=== PATIENT | male | born 1970 | race Native Hawaiian/Other Pacific Islander ===

== ENCOUNTER 2016-06-09 09:46 | Day surgery (SDC) | payer MEDICARE, OTHER, MEDICAID ==
[~2016-06-09] VITALS: Ht 182.9 cm; Wt 129.5 kg
[2016-06-09] VITALS (10 sets, daily range): BP systolic 126–177; BP diastolic 42–88; PULSE 46–68; RESP 15–22; O2SAT 96–100
[~2016-06-09 09:46] MED LIST: ASPI-973 PO; CHOL10008 PO; CINA90TA PO; INSLIS SQ; INSU100V7 SUBQ; PHO667 PO; SEVE800T7 PO
[2016-06-09] MEDS ORDERED: ATOR40TA69 PO (13:02)
--- NOTE | 2016-06-09 13:32 | NUR ---
Admit YURI Admitted to [facility] 6 about 1300. VSS. Denies pain. IVT called for IV start. Procedure and recovery reviewed and verbalizes understanding. See EMR for further info and assessment. Awaiting MD and geophysical laboratory chief.
[2016-06-09] MEDS ORDERED: 0.9% Sodium Chloride 500 ML ONE (14:00)
[2016-06-09 14:14] LABS: INR 0.96 ratio
[2016-06-09] MEDS ORDERED: Alteplase (Cathflo) 1 mg/mL 2 mL Inj IV ONE (14:20)
[2016-06-09] MEDS ORDERED: Heparin 1,000 Unit/mL 10 mL Inj ONE ×2 (14:45→15:59)
[2016-06-09] MEDS ORDERED: Heparin 5,000 Units/500 mL NS Premix IV ONE (14:45)
[2016-06-09] MEDS ORDERED: Heparin 1,000 Units/500 mL NS Premix IV ONE (14:45)
[2016-06-09] MEDS ORDERED: fentaNYL-PF 50 mCg/mL 2 mL Inj ONE (14:49)
[2016-06-09] MEDS ORDERED: Water for Injection 50 ML IV ONE (14:56)
[2016-06-09] MEDS ORDERED: Atropine 1 mg/10 mL (Code) Syringe ONE (15:32)
--- NOTE | 2016-06-09 17:16 | DRSVH ---
PROCEDURE: CV DECLOTTING MECHANICAL (PNL) INDICATIONS: THROMBUS COMPARISON: None. Technique: 1. Conscious sedation for 120 minutes. 2. Antegrade access of the venous outflow of the left upper extremity fistula. 3. Fistulogram of the venous outflow. 4. Administration of TPA via a multi-sidehole catheter. 5. Mechanical thrombolysis with the AngioJet. 6. Angioplasty of a focal high-grade stenosis at the anastomosis of the graft and the central cephali c vein. 7. Retrograde access of the midportion of the venous outflow. 8. Angioplasty of a focal high-grade stenosis within the peripheral portion of the venous outflow beto r the arteriovenous anastomosis. 9. Completion fistulogram. The indications, alternatives, benefits, risks, and complications of the procedure were explained to the patient. Informed written consent was obtained and placed in the chart. The patient was brought to the angiography suite, and conscious sedation was administered intravenously by long term s taff, while continuous cardiorespiratory monitoring was performed. Maximum sterile barrier technique was employed per standard protocol, including hand hygiene, cap, ma sk, sterile gown and gloves, and 2% chlorhexidine. Sterile ultrasound probe cover was also utilized. 1% lidocaine was used to anesthetize the skin over the area of interest. Using a micropuncture kit u nder ultrasound guidance, the venous outflow was accessed in antegrade fashion. focal fistulogram was performed through the micropuncture sheath. With the aid of a Kumpe catheter a Glidewire was advance d into the central portion of the vein. The micropuncture sheath was exchanged for a short 6 [place] s jody. A unifuse catheter was advanced over the wire and 3 mg of TPA was administered through the cat heter. Next, mechanical thrombolysis was performed with the AngioJet device. Fistulogram was performe d. Balloon angioplasty was then performed for a focal high-grade stenosis at the anastomosis of the c entral aspect of the graft and the prairie band vein with a 5 mm x 20 mm high-pressure balloon. Fistulogram was performed. Next, the central portion of the graft was accessed in a retrograde fashion with a micropuncture kit. The micropuncture sheath was exchanged for a short 6 [place] sheath. Balloon angioplasty was performe d for a focal high-grade stenosis within the peripheral portion of the vein just central to the arter iovenous anastomosis. This was performed with a 5 mm x 20 mm high-pressure balloon. Completion fistul ogram was performed. FINDINGS: Initial ultrasound and fistulogram demonstrates a completely occluded left upper extremity graft. Completion fistulogram demonstrates a widely patent graft with prompt flow of contrast centra lly. There is trace residual clot or stenosis within the peripheral portion of the graft just central to the arteriovenous anastomosis. IMPRESSION: 1. Status post mechanical and pharmacologic thrombolysis of a completely occluded left upper extremit y arteriovenous graft. 2. Status post angioplasty of a focal high-grade stenosis at the central graft/vein anastomosis. 3. Status post angioplasty of a focal high-grade stenosis at the peripheral portion of the graft just central to the artery/graft anastomosis. Dictated by: Roslyn Perales M.D. on 06/09/2016 at 17:14 Approved by: Roslyn Perales M.D. on 06/09/2016 at 17:14
--- NOTE | 2016-06-09 19:53 | NUR ---
Received Received from analyst microbiology lab about 1500. VSS. Denies pain. Taking po well. Pursestrings intact with good pulse and bruit. Bedrest until 1900. Pursestrings removed one at a time starting at 1910 and holding for 10minutes per pursestring. Bandaids applied. Discharge instructions given, see sheets. Instructed to not use arm as much as possible. Discharged ambulatory with all belongings at 1950 in no distress.
== END 2016-06-09 23:59 | disposition home or self-care (01) ==
LOC: SOUO 09:46
PROVIDERS: ATTEND Radiology Vascular & Interventional Radiology
DX: T82.898A Other specified complication of vascular prosthetic devices, implants and grafts, initial encounter (principal); T82.858A Stenosis of other vascular prosthetic devices, implants and grafts, initial encounter; Y83.1 Surgical operation with implant of artificial internal device as the cause of abnormal reaction of the patient, or of later complication, without mention of misadventure at the time of the procedure; N18.6 End stage renal disease; Z99.2 Dependence on renal dialysis; Z79.4 Long term (current) use of insulin; Z79.82 Long term (current) use of aspirin; I12.0 Hypertensive chronic kidney disease with stage 5 chronic kidney disease or end stage renal disease; E11.22 Type 2 diabetes mellitus with diabetic chronic kidney disease; I73.9 Peripheral vascular disease, unspecified; D63.1 Anemia in chronic kidney disease; Z87.891 Personal history of nicotine dependence
CPT/HCPCS: 36905; 84132; 85049; 85610; 85730; 99152; 99153; C1725; C1751; C1769; C1894; J1644; J2250; J3010; Q9967

== ENCOUNTER 2016-06-14 10:48 | Inpatient (IN) | payer MEDICARE, OTHER, MEDICAID ==
[~2016-06-14] VITALS: Ht 182.9 cm; Wt 122.6 kg
[2016-06-14] MEDS ORDERED: Ondansetron 8 mg ODT Tablet PO ONE (11:15)
[2016-06-14 11:17] VITALS: BP 99/53; PULSE 79; RESP 18; O2SAT 99
[2016-06-14 12:25] LABS: BASOPHILS % (AUTO) 0.2 % (0-3); Mean Corpuscular Hemoglobin 31.8 pg (27.0-35.0)
[2016-06-14 12:27] LABS: EOSINOPHILS % (AUTO) 2.4 % (0-5); MONOCYTES % (AUTO) 2.9 % (4-12); Mean Corpuscular Volume 97.2 fL (81-100); NEUTROPHILS % (AUTO) 89.8 % (40-74); Platelet Count 123 bil/L (150-400)
[2016-06-14] MEDS ORDERED: Promethazine 25 mg/mL Inj IM ONE (13:05)
--- NOTE | 2016-06-14 13:24 | ED.REPORT ---
HPI-Fever Date of Service Jun 14, 2016 ED Provider: Chun Magallon PA-C Waqas is a 46 yo dialysis patient with a chief complaint of fever. Patient states that he was advised to present to the emergency department 2 days ago when he was noted to have a fever at his dialysis treatment. He did not rather treated himself with NyQuil which seemed to resolve his symptoms. He again noticed nausea, vomiting and fever/chills yesterday, and again treated himself with NyQuil. He is afebrile when he presented to dialysis this morning but then spiked a fever shortly after starting treatment. Treatment was stopped and he was directed to present to the emergency department. Patient also complains of vomiting 3 yesterday and today, diarrhea 1 today and midline intermittent, nonradiating lumbosacral pain. He was diagnosed 5 days ago with blood clot at his fistula. He has a small wound on the plantar aspect of his right great toe, which was seen at wound care yesterday. Patient reports wound care did not feel that it was infected at that time. Patient admits a nine- year history of dialysis, DM 2 and states that he does not produce urine. Denies upper respiratory symptoms, chest pain, palpitations, dyspnea, cough, abdominal pain. Nursing Notes Stated Complaint: FEVER Chief Complaint: FLU/Cold Symptoms Nursing Notes Reviewed: Yes Allergies: Coded Allergies: No Known Allergies (Verified , 06/14/16) Scheduled Aspirin (Aspirin) 81 Mg Tablet 81 MG PO DAILY Calcium Acetate (Calcium Acetate) 667 Mg Capsule 2 EACH PO TIDWM Cholecalciferol (Vitamin D3) (Vitamin D3) 1,000 Unit Tab.chew 1,000 UNIT PO DAILY Insulin Glargine (Lantus U100 Insulin Vial) 100 Unit/Ml Vial 30 UNIT SUBQ QPM Insulin Human Lispro (HumaLOG U100 Insulin Vial) 100 Unit/Ml Unit 10 UNITS SQ ACHS Sevelamer Carbonate (Renvela) 800 Mg Tablet 800 MG PO TID Scheduled PRN Acetaminophen (Acetaminophen) 325 Mg Capsule 325 MG PO Q4H PRN PRN For Pain General Time Seen by MD: 11:08 Chief Complaint Fever currently Past Medical History Smoking History Former Smoker Review of Systems General: Admits fever, chills, malaise. HEENT: Denies congestion, headache, sore throat. Respiratory: Denies dyspnea, cough, shortness of breath, wheezing. Cardiovascular: Denies chest pain, palpitations. Gastrointestinal: Admits vomiting, diarrhea, denies abdominal pain. Genitourinary: Denies urine production Otherwise as noted in HPI. Physical Exam Initial Vital Signs Vital Signs (First) Date Time Temp Pulse Resp B/P Pulse Ox O2 Delivery O2 Flow Rate FiO2 06/14/16 11:17 40.7 79 18 99/53 99 Room Air Initial VS: Reviewed, Vital signs abnormal (febrile) Interpretation & Diagnostics Interpretation & Diagnostics: Flu screen negative for a and B Lab Results Interpretation Result Diagram: 06/14/16 1215 06/14/16 1215 Test 06/14/16 12:15 White Blood Count 8.7th/mm3 (3.8-10.1) Red Blood Count 3.59mil/mm3 (4.40-5.80) Hemoglobin 11.4g/dL (13.8-17.2) Hematocrit 34.9% (41.0-50.0) Mean Corpuscular Volume 97.2fL (81-100) Mean Corpuscular Hemoglobin 31.8pg (27.0-35.0) Mean Corpuscular Hemoglobin Concent 32.7% (32.0-37.0) Red Cell Distribution Width 15.6% (12.3-15.4) Platelet Count 123bil/L (150-400) Neutrophils (%) (Auto) 89.8% (40-74) Lymphocytes (%) (Auto) 3.5% (14-46) Monocytes (%) (Auto) 2.9% (4-12) Eosinophils (%) (Auto) 2.4% (0-5) Basophils (%) (Auto) 0.2% (0-3) Sodium Level 131mEq/L (134-144) Potassium Level 4.7mEq/L (3.5-5.2) Chloride Level 85mEq/L (97-108) Carbon Dioxide Level 21mmol/L (18-29) Blood Urea Nitrogen 51mg/dL (6-24) Creatinine 9.47mg/dL (0.76-1.27) Estimat Glomerular Filtration Rate 6mL/min (>59) Glucose Level 163mg/dL (60-99) Calcium Level 9.3mg/dL (8.5-10.1) Phosphorus Level 3.9mg/dL (2.5-4.9) Magnesium Level 1.8mg/dL (1.6-2.6) Total Bilirubin 1.3mg/dL (0.0-1.2) Aspartate Amino Transf (AST/SGOT) 17U/L (0-50) Alanine Aminotransferase (ALT/SGPT) 13U/L (0-44) Alkaline Phosphatase 94U/L (25-150) Total Protein 9.3g/dL (6.4-8.4) Albumin 3.7g/dL (3.4-5.0) Procalcitonin 70.45ng/mL (See Comment) CT Chest Interpretation PROCEDURE: X-RAY CHEST, TWO VIEWS ([id number]) INDICATIONS: fever TECHNIQUE: 2 views of the chest were acquired. COMPARISON: [facility], CR, XR CHEST 1VW (PORTABLE), 01/03/2016, 20:51. IMPRESSION: Coarsened interstitial prominence particularly near the bases. This could be call center representative of edema or developing airspace disease such as pneumonia. Interpretation / Wet Read by: Interpret - Radiologist, Interp - P Re-Eval/Medical Decision Med Decision/Clinical Course Discussed this case with Dr. Lang Consultation : Referral / Consult Name: Lesa Mcadams MD Consulted With: Hospitalist Call Returned at: 15:29 Front Desk Worker: Accepts admit Note: Dr. Mcadams asked that we order an DEISI respiratory viral, stool cultures and place the patient on Levaquin Discharge & Departure Impression: Primary Impression: Fever Fever type: unspecified Qualified Code: R50.9 - Fever, unspecified Disposition: ADMITTED TO HOSPITAL Referrals: DIANE RICHARDS PA-C (PCP) EDSupervising Provider for APC: Camron Zapata Seth PA-C Jun 14, 2016 13:24
--- NOTE | 2016-06-14 14:12 | DRSVH ---
PROCEDURE: X-RAY CHEST, TWO VIEWS ([id number]) INDICATIONS: fever TECHNIQUE: 2 views of the chest were acquired. COMPARISON: [facility], CR, XR CHEST 1VW (PORTABLE), 01/03/2016, 20:51. FINDINGS: Surgical changes and devices: None. Lungs and pleura: There is appearance of coarse and interstitial prominence particularly toward the b ases. Mediastinum: Mediastinal contours are normal. Heart size is normal. Bones and chest wall: No suspicious bony abnormalities. Soft tissues appear unremarkable. IMPRESSION: Coarsened interstitial prominence particularly near the bases. This could be representati ve of edema or developing airspace disease such as pneumonia. Dictated by: Mary Garcia M.D. on 06/14/2016 at 14:10 Approved by: Mary Garcia M.D. on 06/14/2016 at 14:10
[2016-06-14] MEDS ORDERED: Promethazine Inj 25 MG in Dextrose 5%-Pha MIX 50 ML IV ONE (14:50)
[2016-06-14] MEDS ORDERED: Ondansetron 2 mg/mL 2 mL Inj IVPUSH PRN ×2 (15:30→20:20)
[2016-06-14] MEDS ORDERED: ACET325C PO (15:30)
[2016-06-14] MEDS ORDERED: Alum-Mag Hydrox-Simeth 30 mL Suspension PO PRN (15:30)
[2016-06-14] MEDS ORDERED: levoFLOXacin Inj 750 MG in IV Premix 1 EACH IV ONE (15:30)
[2016-06-14] MEDS ORDERED: CALC667C9 PO (15:30)
[2016-06-14] MEDS: Vancomycin Dose per Pharmacist XX SCH (16:10)
[2016-06-14] MEDS ORDERED: 0.9% Sodium Chloride 1,000 ML IV SCH (16:16)
[2016-06-14] MEDS ORDERED: Polyethylene Glycol (PEG) 17 Gm Powder PO PRN (16:20)
[2016-06-14] MEDS ORDERED: Glucose 40% Oral Gel 15 Gm Tube PO PRN (16:20)
--- NOTE | 2016-06-14 16:30 | PCM.HPMED ---
Subjective Date of Service Jun 14, 2016 Primary Provider: Admitting Physician: Primary Care Physician: Jeni Jenkins Pa-C Attending Physician: Chief Complaint: fever HISTORY was OBTAINED FROM PATIENT / [employer] [facility] History of present illness 46-year-old male with cough and fever since Sunday, told by hemodialysis nurse to come to the ER then, went home and took NyQuil for the last 2 days, presents today in the ER from hemodialysis with temperature 104, low blood pressure, nausea vomiting diarrhea and malaise x 3 days no blood in emesis/or in stool, poor PO intake, no change in diet. no epigastric pain. no GERD. Chest x-ray consistent with possible pneumonia, left shift (he never has leukocytosis) right first toe with ulcer, MRSA history. no cough/ works w/ children no SOB. per his wound care clinic his foot toe ulcer is healing. no recent abx. In ER, Levaquin/vancomycin/100 mL per hour/lactate 3. Pending blood culture aspirate viral stool culture right foot x-ray Review of Systems - none of the following - F/C/sick contact / wt change/ DAMON / lightheaded / dizziness / sob / cough / cp / acid reflux / / bleeding/bruising / leg swelling / change in voiding / yeast infections / rash FAMILY HX ESRD SOCIAL HX former smoker MEDICATIONS Aspirin (Aspirin) 81 Mg Tablet 81 MG PO DAILY Calcium Acetate (Phoslo) 667 Mg Tablet 667 MG PO TIDWM Cholecalciferol (Vitamin D3) (Vitamin D3) 1,000 Unit Tab.chew 1,000 UNIT PO DAILY Cinacalcet HCl (Sensipar) 90 Mg Tablet 90 MG PO DAILY Insulin Glargine (Lantus U100 Insulin Vial) 100 Unit/Ml Vial 30 UNIT SUBQ QPM Insulin Human Lispro (HumaLOG U100 Insulin Vial) 100 Unit/Ml Unit 10 UNITS SQ ACHS Sevelamer Carbonate (Renvela) 800 Mg Tablet 800 MG PO TID PMHX DM MRSA foot ulcer no pneumonia no cardiac disease hx ESRD HD cathremoved distantly AVF Allergies Coded Allergies: No Known Allergies (Verified , 06/14/16) PMH Social History Hx Alcohol Use: No Hx Substance Use: No Hx Tobacco Use: Yes Smoking Status: Former Smoker Exam Vital Signs Vital Sign - Last Date Time Temp Pulse Resp B/P Pulse Ox O2 Delivery O2 Flow Rate FiO2 06/14/16 11:17 40.7 79 18 99/53 99 Room Air Lab and Diagnostics Labs Exam on admission SBP 80s NAD A and O x 3 mood affect WNL fatigued NC/AT no icterus no injected eyes EOMI PERRL /no pharyngeal lesions/ no oral lesions / hearing intact Supple neck CTAB equal chest rise / no accessory muscle use / speaks in full sentences / no rrw RRR S1 S2 / no mrg / 2+ radial pulses Soft nt nd + BS no hepatosplenomegaly trace jurado edema no cyanosis no ecchymosis of lower extremities No rash / no jaundice THAKUR 1st right toe - unimpressive healing pinpoint toe ulcer CXR : Coarsened interstitial prominence particularly near the bases. This could be applications sales representative of edema or developing airspace disease such as pneumonia. lactic acid elevated procalcitonin elevated left shift stool PCR negative Result Diagram: 06/14/16 1215 06/14/16 1215 Assessment & Plan Active issues and reason for admission sepsis from gastroenteritis and HCAP --treating w/ joseph cohensyn levaquin IVF duonebs --hx mrsa --zofran --pending bl culture / lipase mild thrombocytopenia Chronic issues known prior to admission, present on admission ESRD - Call cold mill inspector for routine HD DM --resume home meds / SSI Diet clear DVT prophylaxis scd ambulate Code full Disposition inpt Assessment and plan were discussed with patient Lesa Mcadams MD Jun 14, 2016 16:30 Social History Hx Alcohol Use: No Hx Substance Use: No Hx Tobacco Use: Yes Smoking Status: Former Smoker Exam Vital Signs Vital Sign - Last Date Time Temp Pulse Resp B/P Pulse Ox O2 Delivery O2 Flow Rate FiO2 06/14/16 11:17 40.7 79 18 99/53 99 Room Air Lab and Diagnostics Result Diagram: 06/14/16 1215 06/14/16 1215 Lesa Mcadams MD Jun 14, 2016 16:30
[2016-06-14 16:49] VITALS: PULSE 72; RESP 16; O2SAT 94
[2016-06-14 17:06] LABS: Magnesium 1.8 mg/dL (1.6-2.6); Phosphorus 3.9 mg/dL (2.5-4.9)
[2016-06-14 17:16] LABS: TROPONIN T 0.166 ug/L (0.0-0.011)
[2016-06-14] MEDS: 0.9% Sodium Chloride 1,000 ML IV SCH ×2 (17:20→21:52)
--- NOTE | 2016-06-14 17:25 | DRSVH ---
PROCEDURE: X-RAY RIGHT FOOT COMPLETE, MINIMUM THREE VIEWS ([id number]) INDICATIONS: sepsis, right 1st toe ulcer, evaluate osteomyelitis TECHNIQUE: 3 views of the foot were acquired. COMPARISON: [facility], , FOOT COMP MIN 3VW (RT), 10/04/2010, 15:57. FINDINGS: Bones: Postsurgical amputation changes are present at the distal fifth metatarsal. Soft tissues: No tibiotalar joint effusion. Achilles tendon appears normal. Soft tissue edema is p resent along the distal phalanx of the first digit. IMPRESSION: 1. Soft tissue first digit edema without visualized osteomyelitis. However, plain film findings can b e delayed compared to bone scan or MRI. Dictated by: Mary Garcia M.D. on 06/14/2016 at 17:24 Approved by: Mary Garcia M.D. on 06/14/2016 at 17:24
[2016-06-14] MEDS: Insulin LISPRO 300 Unit/3 mL Inj SUBQ SCH ×2 (17:30→20:24)
[2016-06-14] MEDS ORDERED: Vancomycin Serum Trough XX ONE (17:50)
--- NOTE | 2016-06-14 18:30 | NUR ---
Admit Pt admitted from ED, report received from Brandy Jay RN. Pt arrived via stretcher, was able to scoot to bed on own. Pt arrived with dialysis fistula accessed, service now developer is currently de-accessing fistula. Pt A/O kristie Collins MD notified of admit [place] [facility].
[2016-06-14 20:14] VITALS: BP 87/54; PULSE 85; RESP 20; O2SAT 94
--- NOTE | 2016-06-14 20:55 | PCM.CONPHA ---
Assessment/Plan Assessment/Plan Pharmacy Kinetic Dosing Vancomycin Indication: SOFT TISSUE RIGHT FOOT ULCER Vanc goal trough: 10-15 mcg/mL Pt wt: 129.6 kg Other ABX: LEVAQUIN, ZOSYN Cultures: Blood PENDING SCr: 9.47mg/Dl CRCL 10.58 ML/MIN Assessment/Plan: - Loading dose of Vancomycin 2000 mg given in ED for (15mg/kg dosing) -Due to patients decreased renal fxn will order a trough for 12 hours after loading dose @0800 06/15/16. Pharmacy will continue to monitor and dose based on drug levels and protocol. Pharmacy appreciates consult and will continue to monitor. Viridiana Paige PharmD Jun 14, 2016 20:55
[2016-06-14] MEDS: Albuterol-Ipratropium 3 mL Inhalation Solution NEB SCH (21:00)
[2016-06-14 22:57] VITALS: BP 93/55; PULSE 74
[2016-06-14] MEDS: Piperacillin-Tazo 3.375 Gm Inj 3.375 GM in Dextrose 5% Minibag Plus 50 ML IV SCH (23:08)
[2016-06-15] VITALS (17 sets, daily range): BP systolic 90–146; BP diastolic 39–76; PULSE 53–76; RESP 17–25; O2SAT 85–100
[2016-06-15 03:04] LABS: Mean Corpuscular Hemoglobin 31.6 pg (27.0-35.0)
[2016-06-15 03:14] LABS: Phosphorus 5.8 mg/dL (2.5-4.9)
[2016-06-15] MEDS: Albuterol-Ipratropium 3 mL Inhalation Solution NEB SCH ×4 (06:00→21:00)
[2016-06-15 07:55] LABS: BASOPHILS % (AUTO) 0.4 % (0-3); EOSINOPHILS % (AUTO) 0.3 % (0-5); MONOCYTES % (AUTO) 14.7 % (4-12); Mean Corpuscular Volume 97.6 fL (81-100); NEUTROPHILS % (AUTO) 77.2 % (40-74); Platelet Count 102 bil/L (150-400)
[2016-06-15] MEDS: Insulin LISPRO 300 Unit/3 mL Inj SUBQ SCH ×4 (08:00→22:00)
[2016-06-15] MEDS: Vancomycin Dose per Pharmacist XX SCH (08:01)
[2016-06-15] MEDS: 0.9% Sodium Chloride 1,000 ML IV SCH (08:09)
[2016-06-15] MEDS: Piperacillin-Tazo 3.375 Gm Inj 3.375 GM in Dextrose 5% Minibag Plus 50 ML IV SCH (08:10)
--- NOTE | 2016-06-15 10:00 | NUR ---
Heartrate Multiple pauses and bradycardia seen and reported by medical records technician. Provider notified. New orders recheck mag, obtain EKGS. EKGs labeled in chart. Mag 2.0 at this time and tele monitoring continues.
--- NOTE | 2016-06-15 10:10 | CONS ---
[address] [address] CONSULTATION REPORT PATIENT: SUZANNE ROJAS : 1970 MR#: [id number] ADMIT: 06/14/2016 JOB ID: [id number] DATE OF SERVICE: RENAL CONSULTATION: IDENTIFYING DATA: The patient is a very pleasant 46-year-old, who was admitted to [facility] for a clotted AV fistula, possible acute viral illness and possible bacteremia. He has a history of end-stage renal disease, and renal consultation is being sought for further evaluation of his renal dysfunction. HISTORY: He has an approximately 9-year history of end-stage renal disease, and he normally dialyzes on Sunday, Sunday and Sunday for 4-1/2 hours over at the [place] unit. He is being followed by an outside technical services consultant. He had a failed vascular access and several months ago, Dr. Junior placed a left upper arm AV graft. This had been functioning fairly well until this last week when his access clotted. He was seen in Interventional Radiology and had a declotting procedure. He was able to undergo dialysis following this without any problems. Yesterday, he was at his routine dialysis treatment and got a 1 hour of dialysis and the access clotted off. He was sent to [facility] and subsequently admitted. The etiology of his renal failure is due to longstanding hypertension and possible contribution of diabetic renal disease. He has a history of both hypertension and insulin-requiring diabetes mellitus. His diabetes has been further complicated by severe peripheral vascular disease with several ulcerations on both feet. He has been [facility] by [facility]. However, he states that there appears to be a new lesion on his left foot. In addition to this, he also has been complaining of some upper respiratory tract symptoms including nasal congestion and cough. He denies any wheezing or shortness of breath. However, he has had some fever and chills. He denies any rashes or arthralgias nor has he had any chest pain, nausea, vomiting, constipation, or diarrhea. His preliminary blood cultures are positive for gram-positive cocci, and he has been given vancomycin. PAST MEDICAL HISTORY: Significant for insulin-requiring diabetes mellitus, hypertension with hypertensive heart disease and hypertensive nephrosclerosis, and end-stage renal disease. He also has a history of peripheral vascular disease and secondary hyperparathyroidism due to end-stage renal disease. He has also had a history of MRSA in the past. PAST SURGICAL HISTORY: Remarkable for several hemodialysis catheters placed in the past, arteriovenous fistula which has failed and his recent arteriovenous graft as detailed above. ALLERGIES: He is not allergic to any food or any medication. SOCIAL HISTORY: He has a prior history of cigarette use but denies any current use of alcohol, tobacco, or illicit drugs. MEDICATIONS: At time of my evaluation include aspirin, PhosLo, vitamin D3, Sensipar, insulin. REVIEW OF SYSTEMS: As detailed above. Otherwise is noncontributory. PHYSICAL EXAMINATION: Revealed an obese 46-year-old, who was alert and oriented x3, in no distress at time of my evaluation. His blood pressure is 104/61 with pulse rate of 71. HEENT examination is remarkable for pale sclerae. Neck is supple without adenopathy, thyromegaly, or jugular venous distention. Lungs were clear to auscultation, though somewhat diminished. Heart was regular and rhythmical with a soft systolic murmur. Abdomen is distended without any tenderness, rebound, guarding, masses, or hepatosplenomegaly. Examination of his extremities did not show any edema. He does have chronic skin changes in his bilateral distal lower extremities consistent with chronic peripheral vascular disease. There are several ulcerated lesions noted on his right foot and on his left foot. Examination of his left upper arm does not show any calor or erythema over his AV graft. LABORATORY EXAMINATION: Today, his white count is 10.4, hemoglobin 9.4, hematocrit 28.7. Red cell indices are within normal limits. Platelet count is low at 102,000. He has 77 neutrophils and 15% lymphocytes. His sodium is 141, potassium 4.8, chloride 90, CO2 of 20, BUN and creatinine were 63 and 11.2. His glucose is 114. Earlier this morning, his vancomycin trough was 24.4. IMPRESSION: 1. Clotted arteriovenous graft. 2. End-stage renal disease -- dialysis dependent. 3. Hypertension with hypertensive heart disease and hypertensive nephrosclerosis without congestive heart failure. 4. Diabetic nephropathy. 5. Staphylococcal sepsis. 6. Severe peripheral vascular disease. RECOMMENDATION: 1. I would like to get a straight cath urinalysis, along with a culture and sensitivity. 2. I will contact Radiology and Dr. Junior about trying to get his left upper arm graft declotted. 3. We need to continue to follow his vancomycin level and re-dose once his level is less than 20. 4. I would agree with cautious IV hydration. Once again, I would like to thank you for allowing me to participate in the care of this most pleasant but unfortunate patient. I will be following him closely with you.
[2016-06-15] MEDS ORDERED: Vancomycin Serum Trough XX ONE (10:30)
--- NOTE | 2016-06-15 11:30 | NUR ---
Ultrasound Pt LLE was in pain, warm, and swollen. Physician saw pt. Ultrasound ordered for BLE and acetaminophen administered for pain. Negative for DVT and pain re-evaluated, pain lowered.
[2016-06-15] MEDS ORDERED: 0.9% Sodium Chloride 1,000 ML ONE (12:04)
[2016-06-15] MEDS ORDERED: Heparin 5,000 Units/500 mL NS Premix IV ONE (12:05)
[2016-06-15] MEDS ORDERED: Alteplase (Cathflo) 1 mg/mL 2 mL Inj INTRACATH ONE (12:50)
--- NOTE | 2016-06-15 13:17 | DRSVH ---
PROCEDURE: US VENOUS LEG DUPLEX BILATERAL INDICATIONS: PAIN AND SWELLING RT>LFT TECHNIQUE: Real-time imaging, as well as color and pulse Doppler interrogation, were performed of the deep veins of both legs from the inguinal ligament to the popliteal fossa. COMPARISON: None. FINDINGS: The deep veins are normally compressible, and free of intraluminal thrombus. Color and pu lse Doppler demonstrate normal phasic intravascular flow. There is normal augmentation response to d istal compression maneuver. There are bilateral groin lymph nodes identified the largest measuring 15 mm on the left. IMPRESSION: No evidence of deep venous thrombosis. Dictated by: Mary Garcia M.D. on 06/15/2016 at 13:15 Approved by: Mary Garcia M.D. on 06/15/2016 at 13:15
--- NOTE | 2016-06-15 13:48 | NUR ---
CathLab Nephrology consulted and assessed, new order for fistulagram. Consent obtained and in chart. NPO after clears for breakfast for procedure today. Pt escorted off floor via odd job laborer personnel via bed.
[2016-06-15] MEDS ORDERED: fentaNYL-PF 50 mCg/mL 2 mL Inj ONE ×2 (13:51→14:36)
[2016-06-15] MEDS ORDERED: Heparin 1,000 Unit/mL 10 mL Inj ONE (13:54)
[2016-06-15] MEDS ORDERED: Water for Injection 50 ML IV ONE (14:01)
[2016-06-15] MEDS ORDERED: Heparin 1,000 Units/500 mL NS Premix IV ONE (14:04)
--- NOTE | 2016-06-15 14:50 | PCM.PHAPRO ---
Progress fever HISTORY was OBTAINED FROM PATIENT / [facility] NOTES History of present illness 46-year-old male with cough and fever since Sunday, told by hemodialysis nurse to come to the ER then, went home and took NyQuil for the last 2 days, presents today in the ER from hemodialysis with temperature 104, low blood pressure, nausea vomiting diarrhea and malaise x 3 days no blood in emesis/or in stool, poor PO intake, no change in diet. no epigastric pain. no GERD. Chest x-ray consistent with possible pneumonia, left shift (he never has leukocytosis) right first toe with ulcer, MRSA history. no cough/ works w/ children no SOB. per his wound care clinic his foot toe ulcer is healing. no recent abx. In ER, Levaquin/vancomycin/100 mL per hour/lactate 3. Pending blood culture aspirate viral stool culture right foot x-ray Review of Systems - none of the following - F/C/sick contact / wt change/ DAMON / lightheaded / dizziness / sob / cough / cp / acid reflux / / bleeding/bruising / leg swelling / change in voiding / yeast infections / rash FAMILY HX ESRD SOCIAL HX former smoker MEDICATIONS Aspirin (Aspirin) 81 Mg Tablet 81 MG PO DAILY Calcium Acetate (Phoslo) 667 Mg Tablet 667 MG PO TIDWM Cholecalciferol (Vitamin D3) (Vitamin D3) 1,000 Unit Tab.chew 1,000 UNIT PO DAILY Cinacalcet HCl (Sensipar) 90 Mg Tablet 90 MG PO DAILY Insulin Glargine (Lantus U100 Insulin Vial) 100 Unit/Ml Vial 30 UNIT SUBQ QPM Insulin Human Lispro (HumaLOG U100 Insulin Vial) 100 Unit/Ml Unit 10 UNITS SQ ACHS Sevelamer Carbonate (Renvela) 800 Mg Tablet 800 MG PO TID PMHX DM MRSA foot ulcer no pneumonia no cardiac disease hx ESRD HD cathremoved distantly AVF VANCOMYCIN DOSING PER PHARMACY Indication: SOFT TISSUE RIGHT FOOT ULCER Vanc goal trough: 15-20 mcg/mL Pt wt: 124.8kg Other ABX: NONE Cultures: POSITIVE CULTURES: GRAM (+) COCCI Labs: WBC 11.22 SCr: 11.22 mg/dL Trough @1030 was 19.7 (14 hours after LD was given) Note: - Unclear picture in regards to HD and if pt will continue. Assessment/Plan: - Loading dose of Vancomycin 2000 mg given in ED for (15mg/kg dosing) - Will give one time dose of vancomycin 1750 mg IV @2000 tonight - Will order a trough for 06/16/16 @0800 to see how pt is clearing vancomycin - Pharmacy will continue to monitor and dose based on drug levels and protocol. Caron Renee PharmD Jun 15, 2016 14:50
--- NOTE | 2016-06-15 15:15 | NUR ---
POST PROCEDURE NOTE RETURNED FROM BORDER MEASURER. SEE FLOW SHEET
--- NOTE | 2016-06-15 15:18 | CONS ---
[address] [address] CONSULTATION REPORT PATIENT: SUZANNE ROJAS : 1970 MR#: [id number] ADMIT: 06/14/2016 JOB ID: [id number] DATE OF SERVICE: 06/15/2016 INFECTIOUS DISEASE FOLLOW UP NOTE: I thank Dr. Watson Corea for this timely consult. REASON FOR CONSULTATION: High-grade Staph aureus bacteremia in an end-stage renal disease patient. INTERVAL HISTORY: The patient is an unfortunate 46-year-old gentleman with longstanding hypertension, diabetes and peripheral vascular disease. He has been on dialysis for about a decade. He was initially dialyzed with fistulas but unfortunately all his fistula sites have clotted. More recently he has been using grafts and in February of 2016, Dr. Kareem Junior placed a graft in his left upper arm. This procedure was complicated by postop hypertension from which he recovered. He subsequently has had issues with the graft clotting but it has been functioning recently. His current problems began on June 12, three days ago, when he developed extremely high fevers in association with nausea, vomiting, diarrhea, loss of appetite and malaise. He denied focal tenderness or problems with the graft though there have been subsequent clotting issues with it. No associated sore throat, significant cough, chest pain, abdominal pain or soft tissue issues. It is worth noting that the patient does have a chronic ulceration underneath his right great toe for which he is followed by a physician in [place] and he has previously had some issues with his left foot but these problems seem to have been quiescent recently. PAST MEDICAL HISTORY: 1. Hypertension. 2. Diabetes. 3. End-stage renal disease times dialysis for 10 years. 4. Peripheral arterial disease. 5. History of MRSA though not contained within our computer but perhaps diagnosed and proven in [place]. SOCIAL HISTORY: The patient is [place] and moved here from [facility] in 2001. He is an ex cigarette smoker and used to work in a warehouse. He now lives on [facility]. FAMILY HISTORY: Positive for diabetes as well as end-stage renal disease. There is no family history of tuberculosis though he is Syrian. REVIEW OF SYSTEMS: Today, the patient has no significant headache. No visual change. No sore throat, trouble swallowing, cough, shortness of breath or chest pain. Nausea and vomiting present on admission resolved, though he does now have some loose stools and diarrhea. The patient is aneuric and, therefore, does not have dysuria, urgency or frequency. He thinks his feet are about at baseline. The patient denies any new or focal neurologic complaints. He is not having any problems with his left upper extremity graft other than it has clotted again and is in need of declotting, but it has not been tender, warm or draining anything. PHYSICAL EXAMINATION: Reveals an afebrile gentleman, temperature 37.4, pulse 71, respiratory rate 19, blood pressure 112/50. He is saturating well on 2 L. He is awake and alert. Anticipating a trip to [facility]iology to try and reopen his left upper extremity graft. His head is without trauma. His eyes are without scleral icterus or conjunctivitis. His nose is normal. His oral cavity is without pharyngitis or thrush. His neck is without obvious abnormality. His lungs are relatively clear. Cardiac tones regular rate and rhythm without murmur. Abdomen basically soft and nontender without organomegaly. No suprapubic fullness is noted. The left upper extremity graft site appears entirely benign. The suture lines are intact. There is no erythema. No drainage and no thrill is noted. The old fistula site on the opposite limb is without a thrill and without evidence of infection either. The patient does not have a Abraham catheter for obvious reasons. He is without evidence of synovitis or joint inflammation. His feet were carefully examined. Underneath the right great toe, there is about a 3 mm in diameter opening which is quite shallow and without evidence of inflammation. This is the ulcer he has been seeking treatment for in the [place] [facility]. On the left foot there is erythema around the lateral foot especially around the left 5th toe. This is not painful but it is a bit erythematous and a bit warm and may be the source of his infection. The patient is neurologically intact. LABORATORIES: Include white count 10,400, hematocrit 28, platelets 102 and declining. Creatinine 11. LFTs are normal. Albumin 3.2. Respiratory viral PCR negative. Stool viral cultures negative. Blood cultures now growing 4 of 4 for Staph aureus with susceptibilities due tomorrow. IMAGING: Includes a chest x-ray, which has some subtle changes at the bases. X-ray of the foot shows no evidence of osteo and ultrasound of the lower extremities no clot. IMPRESSION: This is an unfortunate gentleman with end-stage renal disease for a decade who is now only 46 years old. He is having more and more troubles with dialysis access and has been forced to move from fistulas to graft in his left upper extremity which has now clotted a couple times. It would appear that his current infectious process is not related to the graft as it appears and feels entirely benign. More likely, I think his high-grade Staph bacteremia anna from one of his ulcerated areas on either of his feet, and in particular, his left lateral forefoot has some erythema to it suggesting perhaps that is the nidus of his bacteremia. It is also possible that he could have a post viral Staph pneumonia but I see little evidence of that by auscultation or review of his chest radiograph and the patient does not have much going on in terms of cough to suggest that as an issue. The management of Staph aureus bacteremia in dialysis patients includes serial blood cultures as well as echocardiography and almost always ends with a transesophageal echo, if feasible. RECOMMENDATIONS: 1. Would discontinue the levo and Zosyn he has been receiving as we have a proven cause of this infection. 2. I would continue with vanco with keeping blood levels of 15-20, as per our pharmacy colleagues. 3. If in fact this is a MSSA, will switch to Ancef. 4. The patient will need an echo and I have ordered a transthoracic for today. If that is indeterminate, will move on to a transesophageal echo. 5. I doubt that the graft is infected but obviously if his graft continues to be dysfunctional and we do not have a focus for his infection nailed down, I think it may be reasonable to ultrasound or CT the graft for additional information. 6. Wound management should be consulted to evaluate his feet. Thank you very much for this consult.
--- NOTE | 2016-06-15 16:00 | DRSVH ---
PROCEDURE: CV DECLOTTING MECHANICAL (PNL) INDICATIONS: DECLOT COMPARISON: [facility], US, US VENOUS ARM DPLX UNI LT, 03/14/2016, 9:16. [facility], XA, ARTERIO VENOUS FISTULOGRAM (PNL), 01/03/2016, 14:19. [facility], XA, CV DEC LOTTING MECHANICAL (PNL), 06/09/2016, 14:45. Fluoroscopy time: 4.8 minutes Technique: 1. Conscious sedation for 60 minutes. 2. Antegrade access of the arteriovenous graft within the central portion of the graft. 3. Retrograde access of the graft in the peripheral portion of the graft. 4. Administration of 2 mg TPA within the thrombus within the graft. 5. The angioplasty of a focal stenosis at the graft/venous anastomosis. 6. Balloon angioplasty of a focal stenosis within the artery/graft anastomosis. 7. Balloon angioplasty of nonocclusive thrombus within the midportion of the graft. 8. Completion fistulogram. 9. Sheath removal hemostasis. The indications, alternatives, benefits, risks, and complications of the procedure were explained to the patient. Informed written consent was obtained and placed in the chart. The patient was brought to the angiography suite, and conscious sedation was administered intravenously by [facility] s taff, while continuous cardiorespiratory monitoring was performed. Maximum sterile barrier technique was employed per standard protocol, including hand hygiene, cap, ma sk, sterile gown and gloves, and 2% chlorhexidine. One percent lidocaine was used to anesthetize the skin over the area of interest. Using a micropuncture kit, the arteriovenous graft was accessed in an antegrade fashion near the central portion of the graft. An 035 wire was advanced into the central p ortion of the axillary vein. The micropuncture sheath was exchanged for a short 6 Welsh sheath. 2 mg of TPA was administered via the sheath into the clot within the central portion of the graft. Next, using a micropuncture kit, the arteriovenous graft was accessed in a retrograde fashion near th e central portion of the graft. An 035 wire was advanced over the arteriovenous anastomosis. The micr opuncture sheath was exchanged for a short 6 Welsh sheath. Balloon angioplasty was then performed for a moderate stenosis at the graft/vein anastomosis. Complet ion fistulogram was performed. Next, balloon angioplasty was performed for a focal high-grade stenosi s at the graft/artery anastomosis. Completion fistulogram was performed. Balloon angioplasty was perf ormed at the length of the peripheral portion of the graft in an attempt to macerate some of the nono cclusive residual thrombus in this region. Ogram demonstrated that this was successful and the graft was widely patent at the end of the study. FINDINGS: Initial fistulogram demonstrates occlusive thrombus within the central portion of the arter iovenous graft. Completion fistulogram demonstrates a widely patent graft without residual stenosis o r intraluminal thrombus. IMPRESSION: 1. Status post angioplasty at the graft/artery anastomosis and the graft/vein anastomosis in addition to TPA administration and maceration of the residual nonocclusive thrombus as described above. Please note, the central portion of the outflow vein was not imaged. If there is clinical concern for central venous stenosis, fistulogram with attention directed to the central portion of the venous ou tflow is recommended. This finding was discussed with Dr. Corea at 3:55 PM on 06/15/16. Dictated by: Roslyn Perales M.D. on 06/15/2016 at 15:58 Approved by: Roslyn Perales M.D. on 06/15/2016 at 15:58
--- NOTE | 2016-06-15 16:08 | NUR ---
Social Work: Initial Assessment Attempted Data: R PROGRAMMER attempted initial assessment, pt not in room at this time. R PROGRAMMER will attempt at a later time. TIERNEY Cruz
--- NOTE | 2016-06-15 16:38 | PCM.PNMED ---
Subjective Date of Service Jun 15, 2016 Subjective Patient seen this morning, appearing comfortable with no complaints. Has had positive blood cultures with gram-positive cocci noted, plan for fistulogram today Exam Vital Signs Vital Sign - Last Date Time Temp Pulse Resp B/P Pulse Ox O2 Delivery O2 Flow Rate FiO2 06/15/16 16:15 62 24 99/51 97 Nasal Cannula 2.00 06/15/16 10:06 37.4 Intake and Output 06/14/16 06/14/16 06/15/16 Cumulative From/Thru 15:00 23:00 07:00 06/14/16 11:17 - 06/15/16 06:44 Intake Total 300 ml 300 ml Output Total 100 ml 100 ml Balance 200 ml 200 ml Intake Oral 300 ml 300 ml Output Stool Total 100 ml 100 ml Exam Gen.: No acute distress, alert and oriented, pleasant HEENT: Normocephalic/atraumatic, pupils equal round react to light and accommodation,EOMI, Anicteric sclera, No mucosal ulcerations Neck: No JVD, lymphadenopathy, no thyromegaly Cardiovascular: No rubs clicks murmurs or gallops, regular rate Respiratory: Clear to auscultation bilaterally no wheezes rales or rhonchi, good historian effort GI: Soft, nontender to palpation no masses no hepatosplenomegaly noted no peritoneal signs or rebound tenderness. Extremities: No clubbing cyanosis, 1+ edema, warm Neurologic, muscle strength 5 out of 5 in upper and lower extremities bilaterally, creatinine nerves II-12 grossly intact Psych: Mood appropriate, affect appropriate, no tangential thought or speech IVs and Medications Medications Reviewed: Medications were reviewed in detail Lab and Diagnostics Result Diagram: 06/15/16 0741 06/15/16 0741 X-Rays, CTs and MRIs 06/15 Arteriogram IMPRESSION: 1. Status post angioplasty at the graft/artery anastomosis and the graft/vein anastomosis in addition to TPA administration and maceration of the residual nonocclusive thrombus as described above. Please note, the central portion of the outflow vein was not imaged. If there is clinical concern for central venous stenosis, fistulogram with attention directed to the central portion of the venous outflow is recommended. This finding was discussed with Dr. Corea at 3:55 PM on 06/15/16. Assessment & Plan Sepsis syndrome 2/2 staphy bacteremia -- Given cultures continue vancomycin per infectious disease, and have discontinued Zosyn and Levaquin -- Echo pending, may need EMILY if persistent positive cultures or suggestive echo -- Monitor cultures --hx mrsa --zofran ESRD -Clotted AV graft, status post angiogram with thrombolysis -Compression nephrology recommendations, Dr. Corea on consult -Straight cath with UA per nephrology Hypertension -Currently mildly hypotensive DM/with complications including diabetic nephropathy and peripheral vascular disease --resume home meds -- Sliding scale, hypoglycemic protocol -- Aspirin 81 mg Diet clear DVT prophylaxis scd ambulate Code full Disposition likely several days needed and monitor clinical progress to determine disposition Pain Evaluation: Adequate Pain Control Resuscitation Status: CPR: Attempt Resuscitation Time spent 45 min spent with evaluation and management Ian Lazo DO Jun 15, 2016 16:38
[2016-06-15] MEDS ORDERED: levoFLOXacin Inj 250 MG in IV Premix 1 EACH IV SCH (17:00)
--- NOTE | 2016-06-15 18:11 | NUR ---
[facility] TRANSFER ASSUMED CARE OF PT AT 1545. LEFT ARM WITH PURSE STRINGS X2. BRUIT AND LEFT RADIAL PULSE PALPABLE. LEFT ARM IS WARM. PT DENIES ANY PAIN, IS AWAKE AND ALERT, AND IS TAKING PO LIQUIDS. PURSE STRINGS DISCONTINUED AT 1730 AND BANDAIDS APPLIED. REPORT CALLED TO DELMAR Richardson RN AND PT AND HIS NURSING CARE WERE TRANSFERRED BACK TO ROOM 3005 AT 1800.
--- NOTE | 2016-06-15 18:46 | NUR ---
Return from [facility] Fistula/Graft repair. Retuned to floor via bed. BS obtained, dinner meds admin. Tele applied. SR-SB mostly 70s, brief drops into 30s. Plan updated on board and pt has no further questions at this time.
[2016-06-15] MEDS ORDERED: Vancomycin Inj 1,750 MG in Dextrose 5% 500 ML IV ONE (20:00)
[2016-06-16] VITALS (7 sets, daily range): BP systolic 96–140; BP diastolic 47–71; PULSE 44–81; RESP 16–18; O2SAT 94–99
--- NOTE | 2016-06-16 00:27 | NUR ---
Temp/tele Temp 101.1 - Tylenol given, increased to 102, then down to 99.2. Had chills with elevated temp, but states feeling OK now. Tele is sinus halley in 50's with pauses. MD notified and put in orders.
[2016-06-16] MEDS: Albuterol-Ipratropium 3 mL Inhalation Solution NEB SCH ×4 (06:00→21:00)
--- NOTE | 2016-06-16 06:41 | PCM.PNMED ---
Subjective Date of Service Jun 16, 2016 Subjective no c/o overnight, +fever - on vanco, fistula graft repair yesterday. asymptomatic intermittent bradycardia - denies dizziness. tte today Exam Vital Signs Vital Sign - Last Date Time Temp Pulse Resp B/P Pulse Ox O2 Delivery O2 Flow Rate FiO2 06/16/16 06:07 76 06/16/16 05:46 36.7 96/52 99 Nasal Cannula 2.00 06/16/16 00:20 16 Intake and Output 06/15/16 06/15/16 06/16/16 Cumulative From/Thru 15:00 23:00 07:00 06/14/16 11:17 - 06/16/16 06:28 Intake Total 1584 ml 750 ml 2634 ml Output Total 50 ml 150 ml Balance 1584 ml 700 ml 2484 ml Intake Oral 450 ml 750 ml IV Total 1584 ml 300 ml 1884 ml Output Urine Total 0 ml 0 ml Stool Total 50 ml 150 ml Exam Gen.: No acute distress, alert and oriented, pleasant HEENT: Normocephalic/atraumatic, pupils equal round react to light and accommodation,EOMI, Anicteric sclera, No mucosal ulcerations Neck: No JVD, lymphadenopathy, no thyromegaly Cardiovascular: No rubs clicks murmurs or gallops, regular rate Respiratory: Clear to auscultation bilaterally no wheezes rales or rhonchi, good historian effort GI: Soft, nontender to palpation no masses no hepatosplenomegaly noted no peritoneal signs or rebound tenderness. Extremities: No clubbing cyanosis, 1+ edema, warm Neurologic, muscle strength 5 out of 5 in upper and lower extremities bilaterally, creatinine nerves II-12 grossly intact Psych: Mood appropriate, affect appropriate, no tangential thought or speech IVs and Medications Medications Reviewed: Medications were reviewed in detail Lab and Diagnostics Result Diagram: 06/15/16 0741 06/15/16740 X-Rays, CTs and MRIs 06/15 Arteriogram IMPRESSION: 1. Status post angioplasty at the graft/artery anastomosis and the graft/vein anastomosis in addition to TPA administration and maceration of the residual nonocclusive thrombus as described above. Please note, the central portion of the outflow vein was not imaged. If there is clinical concern for central venous stenosis, fistulogram with attention directed to the central portion of the venous outflow is recommended. This finding was discussed with Dr. Corea at 3:55 PM on 06/15/16. Cardiac Echo Impressions echo pending Assessment & Plan Sepsis syndrome 2/2 staphy bacteremia -- Given cultures continue vancomycin per infectious disease, and have discontinued Zosyn and Levaquin -- Echo pending, may need EMILY if persistent positive cultures or suggestive echo -- Monitor cultures --hx mrsa --zofran ESRD -Clotted AV graft, status post angiogram with thrombolysis -Compression nephrology recommendations, Dr. Corea on consult -Straight cath with UA per nephrology Hypertension -Currently mildly hypotensive DM/with complications including diabetic nephropathy and peripheral vascular disease --resume home meds -- Sliding scale, hypoglycemic protocol -- Aspirin 81 mg Diet clear DVT prophylaxis scd ambulate Code full Disposition likely several days needed and monitor clinical progress to determine disposition VTE Mechanical Devices: Intermittant Pneumatic CD Resuscitation Status: CPR: Attempt Resuscitation Time spent 30 minutes spent Ian Lazo DO Jun 16, 2016 06:41
[2016-06-16] MEDS: Insulin LISPRO 300 Unit/3 mL Inj SUBQ SCH ×4 (08:00→20:19)
[2016-06-16] MEDS ORDERED: Vancomycin Serum Trough XX ONE ×2 (08:00→13:00)
[2016-06-16] MEDS: Vancomycin Dose per Pharmacist XX SCH (08:30)
[2016-06-16] MEDS ORDERED: Darbepoetin Alfa (ESRD) 60 mCg/0.3 mL Inj IV ONE (08:40)
--- NOTE | 2016-06-16 08:45 | NUR ---
off unit pt went to room 243 for dialysis. no s/s of distress at time of tfr Addendum: 06/16/16 at 1451 by SERGIO BERTRAND RN PT RETURNED FROM DIALYSIS, VS WNL, 3L TAKEN OFF. NO PAIN OR DISTRESS
[2016-06-16 09:55] LABS: BASOPHILS % (AUTO) 0.3 % (0-3); EOSINOPHILS % (AUTO) 1.4 % (0-5); MONOCYTES % (AUTO) 11.2 % (4-12); Mean Corpuscular Hemoglobin 31.4 pg (27.0-35.0); Mean Corpuscular Volume 97.1 fL (81-100); NEUTROPHILS % (AUTO) 79.4 % (40-74); Platelet Count 116 bil/L (150-400)
--- NOTE | 2016-06-16 13:54 | NUR ---
Wound Care Wound evaluation order received, pt seen at bedside during his dialysis. 46 yo male; med hx DM,ESRD, Diabetic foot ulcers. Order to evaluate right foot,of more concern is fluctuant area at dorsum of 5th met head left foot and draining thin brownish fluid with odor. This is in need of podiatry skill set and consult is requested, (Dr Ellis pest control applicator). Pt also presents with superficial ulceration at right great toe requiring only a bandaid at this point. Also hyperkeratotic healed(?) lesion at lateral 5th met on right and left and dorsal left 5th toe hyperkeratotic area and healed(?) left plantar 5th hyperkeratosis. Dressed left foot with 4x4 gauze and kerlix to control drainage.
--- NOTE | 2016-06-16 14:11 | PCM.PNMED ---
Subjective Date of Service Jun 16, 2016 Subjective Patient's left upper arm AV graft was successfully declotted yesterday without significant problems. He denies any new complaints and no further fever, chills , chest pain, shortness of breath, vomiting or diarrhea. Patient was seen in dialysis. Exam Vital Signs Vital Sign - Last Date Time Temp Pulse Resp B/P Pulse Ox O2 Delivery O2 Flow Rate FiO2 06/16/16 09:29 44 06/16/16 08:30 Supplement Oxygen 06/16/16 05:46 36.7 96/52 99 2.00 06/16/16 00:20 16 Intake and Output 06/15/16 06/15/16 06/16/16 Cumulative From/Thru 15:00 23:00 07:00 06/14/16 11:17 - 06/16/16 06:50 Intake Total 1584 ml 750 ml 700 ml 3334 ml Output Total 50 ml 100 ml 250 ml Balance 1584 ml 700 ml 600 ml 3084 ml Intake Oral 450 ml 700 ml 1450 ml IV Total 1584 ml 300 ml 1884 ml Output Urine Total 0 ml 0 ml 0 ml Stool Total 50 ml 100 ml 250 ml # Bowel Movements 4 4 Exam Mellitus (without adenopathy thyromegaly or jugular venous distention. Lungs are clear to auscultation. Heart is regular rhythmical with a soft systolic murmur. Abdomen soft without tenderness rebound guarding masses or hepatosplenomegaly. Extremities flatulence and clubbing cyanosis or edema. Lab and Diagnostics Result Diagram: 06/16/16 0947 06/16/16 0947 X-Rays, CTs and MRIs 06/15 Arteriogram IMPRESSION: 1. Status post angioplasty at the graft/artery anastomosis and the graft/vein anastomosis in addition to TPA administration and maceration of the residual nonocclusive thrombus as described above. Please note, the central portion of the outflow vein was not imaged. If there is clinical concern for central venous stenosis, fistulogram with attention directed to the central portion of the venous outflow is recommended. This finding was discussed with Dr. Corea at 3:55 PM on 06/15/16. Cardiac Echo Impressions echo pending Assessment & Plan Impression #1 stage renal disease dialysis dependent #2 staphylococcal bacteremia with final speciation is pending at this time #3 clotted AV graft Recommendations #1 patient is to be dialyzed for 4-1/2 hours today over 2 daily and Arava climaxed dialyzer. 1500 units of heparin as a loading dose and 600 and I will plan to take 2-3 kg off. I am concerned about other systemic manifestations of his staph bacteremia namely endocarditis and the possibilities of an infected graft. I would strongly recommend an echocardiogram and as this is the second time this graft is clotted off I would like to keep him until at least Sunday until we can do another dialysis treatment and see how this goes. VTE Mechanical Devices: Intermittant Pneumatic CD Resuscitation Status: CPR: Attempt Resuscitation Watson Corea DO Jun 16, 2016 14:11
--- NOTE | 2016-06-16 14:15 | NUR ---
Dialysis note: 4 1/2 hrs tx. 3000 ml net UF. Left upper arm graft, had venous needle problems due to clots, Dr Corea notified. Blood cultures x 2, CBC, BMP and Vanco trough drawn. Pls see DTR for VS details. Qb 400. Heparin given. O2 @ 2L via NC on. Aranesp 60 mcg IV given. Stable tx. Graft needle sites clotted w/in 10 min. Report given to Ian Richardson RN. Transferred back to patient's room in stable condition.
--- NOTE | 2016-06-16 15:56 | PROG NOTE ---
[address] [address] PROGRESS NOTE PATIENT: SUZANNE ROJAS : 1970 MR#: [id number] ADMIT: 06/14/2016 JOB ID: [id number] DATE: 06/16/2016 INFECTIOUS DISEASE FOLLOWUP NOTE: REASON FOR FOLLOWUP: High-grade MSSA bacteremia. INTERVAL HISTORY: Today, the patient feels better. His fevers are coming down somewhat. He has some pain in the left foot along the lateral aspect where he had the erythema that we noted yesterday when we first evaluated the patient. In addition, he is continuing to have some loose bowel movements, which have persisted for several days. His fever and chills seem to be improving, however, and overall, his sense is that he is better. PHYSICAL EXAMINATION: Reveals a more comfortable gentleman. He was as high as 38.9 during the night. His temperature now is 36.4. His blood pressure 140/71, pulse 81, respiratory rate 18, pulse about 100. In no acute distress. Alert and oriented. Lungs clear. Cardiac tones: Regular rate and rhythm. The left upper extremity graft appears uninfected, and it was used today for dialysis. Abdomen essentially soft and nontender. The left foot is now wrapped by the Wound Management team, though yesterday he had the lateral erythema. LABORATORIES: Include white count 11,000 today. Mild left shift. Creatinine 12.5. Blood cultures are negative. The patient's nasopharyngeal swab for viruses was negative. His stool PCR for stool pathogens also negative. Blood cultures have grown MSSA with followup cultures negative so far. IMAGING: An arteriogram was done yesterday as part of his graft declotting procedure. Otherwise, we have no new radiographs to examine. IMPRESSION: This unfortunate patient has suffered a high-grade methicillin-sensitive Staphylococcus aureus bacteremia of unknown etiology. There is, of course, concern that his left upper extremity graft could be infected but it appears quite benign. It seems more likely that his staphylococcal bacteremia arose from his left or right foot issues, which are chronic. There is no ongoing evidence for pneumonia. RECOMMENDATIONS: 1. Will discontinue the vancomycin he is now receiving. 2. Will start the patient on an Ancef regimen 3 g after each Sunday dialysis, 2 g after each Sunday and 2 g after each Sunday dialysis session, with an expected duration of 4-6 weeks. 3. The patient is just about to have an echocardiogram, which will be transthoracic. If that is equivocal or nondiagnostic, will need a EMILY to help decide between four and six weeks of therapy. 4. This case discussed with Dr. Corea.
--- NOTE | 2016-06-16 16:28 | NUR ---
Social Work: Initial Assessment Data: Pt is a 46 y/o male admitted for fever. Pt's PCP is Dr Jenkins, pt's insurance is Medicare with [facility] supp. Pt readmit score is 4. EMR reviewed. TEST CENTER MANAGER met with pt at bedside, role explained. Pt states he lives in [place] with family in a single story home where he uses no DME. Pt states that he goes to dialysis. Pt has no history of HH or SNF, no LTC or VA benefits, and is not a caregiver for another. Pt states he drives and his brother can drive him home at d/c. stated pt possibly has a need for IVABX at d/c. TEST CENTER MANAGER will continue to follow. Assessment: Pt who is independent at baseline. Plan: Pt will d/c home via POV with brother when pt is medically stable. TEST CENTER MANAGER will follow for possible IVABX need. TIERNEY Cruz Addendum: 06/16/16 at 1631 by VIANEY GIMENEZ SS Amended: Links added.
[2016-06-16] MEDS: CeFAZolin Inj 2 GM in IV Premix 1 EACH IV SCH (16:38)
--- NOTE | 2016-06-16 17:13 | DRSVH ---
Formerly [facility] [address] [place] [address] Echocardiogram Report Name: SUZANNE ROJAS te: 06/16/2016 Height: 72 in Hospital Exam Location: [facility] Weight: 282 lb Gender: Male BSA: 2.5 m2 : 1970 Age: 46 yrs BP: 96/52 mmHg Reason For Study: SEPSIS Ordering Physician: Performed By: Melyssa Wisdom Referring Physician: GRACIA MCKEON Interpretation Summary No obvious valvular vegetations; however, image quality was rather poor. The left ventricle is normal in size. The ejection fraction is estimated to be 55-60%. There is moderate mitral annular calcification. There is no vegetation seen on the mitral valve. There is no aortic valvular vegetation. There is no tricuspid valve vegetation. There is no vegetation on the pulmonic valve. There is moderate pulmonary hypertension. The right ventricular systolic pressure is estimated at 48 mmHg assuming a right atrial pressure of 3 mm Hg. No other echocardiographic abnormalities seen. Since the prior exam from 09/02/2013, the TR has worsened and the PA pressure is increased. Otherwise no significant changes seen. Procedure: A two-dimensional transthoracic echocardiogram with color flow and Doppler was performed. The study quality was technically difficult. Comparison is made with the echocardiogram of 09/02/2013. A contrast injection of Definity was performed to improve assessment of LV function. The patient was in normal sinus rhythm during the exam. Left Ventricle: The left ventricle is normal in size. Left ventricular wall thickness is mildly increased. There is no thrombus. The ejection fraction is estimated to be 55-60%. There are no focal wall motion abnormalities. Diastolic function could not be accurately assessed due to contradictory data. Right Ventricle: The right ventricle is mildly dilated. The right ventricular systolic function is normal. Atria: Both atria are normal in size. There is no Doppler evidence for an interatrial shunt. Mitral Valve: There is moderate mitral annular calcification. The mitral valve chordae are thickened and/or calcified. The mitral valve leaflets appear mildly thickened, but open well. There is no vegetation seen on the mitral valve. There is trace mitral regurgitation. Aortic Valve: The aortic valve is trileaflet. The aortic valve opens well. There is no aortic valvular vegetation. No aortic regurgitation is present. Tricuspid Valve: The tricuspid valve is normal. There is no tricuspid valve vegetation. There is moderate tricuspid regurgitation. The right ventricular systolic pressure is estimated at 48 mmHg assuming a right atrial pressure of 3 mm Hg. There is moderate pulmonary hypertension. Pulmonic Valve: The pulmonic valve is not well seen, but is grossly normal. There is no vegetation on the pulmonic valve. There is a trace or physiologic amount of pulmonic regurgitation. Great Vessels: The aortic root is not well visualized but is probably normal size. The ascending aorta could not be visualized. The IVC is of normal diameter and collapses greater than 50% with a sniff. This suggests a low right atrial pressure of 3 mm Hg. Pericardium/ Pleura There is no pericardial effusion. MMode/2D Measurements & Calculations LVIDd: 5.2 cm RA long axis LVOT diam LVIDs: 3.9 cm LA A2 area: 24.0 cm : 1.9 cm FS: 25.2 % LA A4 area: 24.6 cm RA area EPSS: 0.65 cm LA length (vol): 7.0 cm IVSd: 1.1 cm LA vol: 71.6 ml : 18.9 cm LVPWd: 1.2 cm RA vol: 52.3 ml LA vol index: 29.0 ml/m RA IVC diam: 1.8 cm : 21.2 mm2 LV fried. diameter/BSA LV sys. diameter/BSA RVD1 (basal) TAPSE (cm/m^2): 2.1 (cm/m^2): 1.6 : 2.2 cm Doppler Measurements & Calculations Ao V2 max MV E max anam MV E/A: 1.4 TR max anam : 158.8 cm/sec : 136.8 cm/sec Med Peak E' Anam : 335.8 cm/sec Ao max PG MV A max anam TR max PG : 10.1 mmHg : 99.7 cm/sec E/E' med: 26.0 : 45.1 mmHg Ao mean PG MV P1/2t: 64.8 msec MV A dur: 0.10 secPA V2 max MVA(VTI): 1.7 cm2 : 136.3 cm/sec LVOT Max Anam PA mean PG : 97.1 cm/sec MARTIN(I,D): 1.9 cm PA Accel Time sev ratio : 0.10 sec MV V2 mean MV P1/2t max anam Ao V2 mean LV V1 max PG : 85.7 cm/sec : 106.3 cm/sec MV mean PG Ao V2 VTI: 29.1 cmLV V1 VTI MVA(P1/2t): 3.4 cm2 : 19.6 cm MV V2 VTI MARTIN(V,D): 1.7 cm2 MV dec time : 0.22 sec PA V2 mean MARTIN indexed to BSA : 89.1 cm/sec (cm^2/m^2): 0.78 Reading Physician:05:12 PM
[2016-06-17] VITALS (8 sets, daily range): BP systolic 100–129; BP diastolic 50–70; PULSE 56–69; RESP 18; O2SAT 95–99
--- NOTE | 2016-06-17 04:19 | NUR ---
Pain / Respiratory Pt report pain at 6/10 to L foot at HS, stating "It's always there, but I'm used to it". 975mg PO Tylenol administered with slight relief upon reassessment. CPOX in room, pt on 2L NC at HS for intermittent desaturation to 50s-80s% while asleep with spontaneous recovery within 1-2 seconds to >94% SpO2. VSS, tele SR 50s-60s with sinus arrhythmia. Per headend technician, 4-second pause occurred x1 this shift, MD aware, pt asymptomatic. No new orders placed.
[2016-06-17] MEDS: Albuterol-Ipratropium 3 mL Inhalation Solution NEB SCH ×4 (06:00→21:00)
[2016-06-17 06:22] LABS: BASOPHILS % (AUTO) 0.6 % (0-3); EOSINOPHILS % (AUTO) 3.2 % (0-5); MONOCYTES % (AUTO) 12.6 % (4-12); NEUTROPHILS % (AUTO) 71.1 % (40-74); Platelet Count 129 bil/L (150-400)
[2016-06-17] MEDS: Insulin LISPRO 300 Unit/3 mL Inj SUBQ SCH ×4 (08:00→20:57)
--- NOTE | 2016-06-17 08:45 | NUR ---
ROGER signed Verbal permission to sign by pt, pt on precautions. TIERNEY Cruz
--- NOTE | 2016-06-17 11:29 | PCM.PNMED ---
Subjective Date of Service Jun 17, 2016 Subjective Patient offers no new complaints. I am concerned because his left upper arm appears to have a clotted AV graft. Exam Vital Signs Vital Sign - Last Date Time Temp Pulse Resp B/P Pulse Ox O2 Delivery O2 Flow Rate FiO2 06/17/16 10:06 56 06/17/16 09:18 36.9 18 104/54 99 Room Air 06/16/16 05:46 2.00 Intake and Output 06/16/16 06/16/16 06/17/16 Cumulative From/Thru 15:00 23:00 07:00 06/14/16 11:17 - 06/17/16 06:50 Intake Total 715 ml 400 ml 4449 ml Output Total 3000 ml 0 ml 0 ml 3250 ml Balance -3000 ml 715 ml 400 ml 1199 ml Intake Oral 636 ml 400 ml 2486 ml IV Total 79 ml 1963 ml Output Urine Total 0 ml 0 ml 0 ml Stool Total 250 ml Ultrafiltrate 3000 ml 3000 ml # Bowel Movements 4 Exam Neck is supple without adenopathy thyromegaly or jugular venous distention. Lungs are clear to auscultation. Abdomen soft systolic murmur. Abdomen soft and nontender rebound guarding masses or hepatosplenomegaly. External examination shows any clubbing cyanosis or edema. Left upper arm AV graft does not have a probable, bruit, and Doppler exam did not show any blood flow. Lab and Diagnostics Result Diagram: 06/17/16 0548 06/17/16 0548 X-Rays, CTs and MRIs 06/15 Arteriogram IMPRESSION: 1. Status post angioplasty at the graft/artery anastomosis and the graft/vein anastomosis in addition to TPA administration and maceration of the residual nonocclusive thrombus as described above. Please note, the central portion of the outflow vein was not imaged. If there is clinical concern for central venous stenosis, fistulogram with attention directed to the central portion of the venous outflow is recommended. This finding was discussed with Dr. Corea at 3:55 PM on 06/15/16. Cardiac Echo Impressions echo pending Assessment & Plan Impression #1 end-stage renal disease dialysis dependent #2 clotted AV graft #3 staph bacteremia number for diabetic nephropathy #5 hypertension with hypertensive heart disease and hypertensive nephrosclerosis Recommendations #[address] Junior for surgery to evaluate this and get his recommendations on the best way to proceed. VTE Mechanical Devices: Intermittant Pneumatic CD Resuscitation Status: CPR: Attempt Resuscitation Watson Corea DO Jun 17, 2016 11:29
--- NOTE | 2016-06-17 14:29 | PCM.PNMED ---
Subjective Date of Service Jun 17, 2016 Subjective Patient seen this morning, no acute complaints overnight. Later on did complain of left foot pain will increase pain regimen to include [place] and scheduled bowel regimen. Negative repeat blood cultures so far, ID will need EMILY unable to obtain on the weekend Exam Vital Signs Vital Sign - Last Date Time Temp Pulse Resp B/P Pulse Ox O2 Delivery O2 Flow Rate FiO2 06/17/16 14:08 36.8 69 18 107/52 97 Room Air 06/16/16 05:46 2.00 Intake and Output 06/16/16 06/16/16 06/17/16 Cumulative From/Thru 15:00 23:00 07:00 06/14/16 11:17 - 06/17/16 06:50 Intake Total 715 ml 400 ml 4449 ml Output Total 3000 ml 0 ml 0 ml 3250 ml Balance -3000 ml 715 ml 400 ml 1199 ml Intake Oral 636 ml 400 ml 2486 ml IV Total 79 ml 1963 ml Output Urine Total 0 ml 0 ml 0 ml Stool Total 250 ml Ultrafiltrate 3000 ml 3000 ml # Bowel Movements 4 Exam Gen.: No acute distress, alert and oriented, pleasant HEENT: Normocephalic/atraumatic, pupils equal round react to light and accommodation,EOMI, Anicteric sclera, No mucosal ulcerations Neck: No JVD, lymphadenopathy, no thyromegaly Cardiovascular: No rubs clicks murmurs or gallops, regular rate Respiratory: Clear to auscultation bilaterally no wheezes rales or rhonchi, good historian effort GI: Soft, nontender to palpation no masses no hepatosplenomegaly noted no peritoneal signs or rebound tenderness. Extremities: No clubbing cyanosis, 1+ edema, warm, left foot wrapped, no evidence of discharge Psych: Mood appropriate, affect appropriate, no tangential thought or speech IVs and Medications Medications Reviewed: Medications were reviewed in detail Lab and Diagnostics Result Diagram: 06/17/1654706/17/16547 X-Rays, CTs and MRIs 06/15 Arteriogram IMPRESSION: 1. Status post angioplasty at the graft/artery anastomosis and the graft/vein anastomosis in addition to TPA administration and maceration of the residual nonocclusive thrombus as described above. Please note, the central portion of the outflow vein was not imaged. If there is clinical concern for central venous stenosis, fistulogram with attention directed to the central portion of the venous outflow is recommended. This finding was discussed with Dr. Corea at 3:55 PM on 06/15/16. Cardiac Echo Impressions echo completed - Referring Physician: GRACIA MCKEON Interpretation Summary No obvious valvular vegetations; however, image quality was rather poor. The left ventricle is normal in size. The ejection fraction is estimated to be 55-60%. There is moderate mitral annular calcification. There is no vegetation seen on the mitral valve. There is no aortic valvular vegetation. There is no tricuspid valve vegetation. There is no vegetation on the pulmonic valve. There is moderate pulmonary hypertension. The right ventricular systolic pressure is estimated at 48 mmHg assuming a right atrial pressure of 3 mm Hg. No other echocardiographic abnormalities seen. Since the prior exam from 09/02/2013, the TR has worsened and the PA pressure is increased. Otherwise no significant changes seen. Assessment & Plan Sepsis syndrome 2/2 staph bacteremia -- Given cultures continue vancomycin per infectious disease, and have discontinued Zosyn and Levaquin -- Echo without evidence of vegetations, ID would like EMILY if persistent positive cultures, monitor cultures --hx mrsa --zofran ESRD -Clotted AV graft, status post angiogram with thrombolysis -Compression nephrology recommendations, Dr. Corea on consult, appreciate evaluation -Straight cath with UA per nephrology Left foot ulceration -Increased pain control with [place] when necessary with scheduled bowel regimen -- Per wound care note:fluctuant area at dorsum of 5th met head left foot and draining thin brownish fluid with odor -Consult podiatry Hypertension -Currently mildly hypotensive DM/with complications including diabetic nephropathy and peripheral vascular disease --resume home meds -- Sliding scale, hypoglycemic protocol -- Aspirin 81 mg Diet clear DVT prophylaxis scd ambulate Code full VTE Mechanical Devices: Intermittant Pneumatic CD Resuscitation Status: CPR: Attempt Resuscitation Time spent 35 minutes spent with evaluation and management Ian Lazo DO Jun 17, 2016 14:29
--- NOTE | 2016-06-17 15:12 | NUR ---
SB with junctional escape pauses Per tele: pt is continually running SB down to 30s with junctional escape pauses of 2.5-3 sec. Pt is asymptomatic. MD notified. Stat ekg ordered. Notified again by tele that pt is continuing to run SB with pauses and last night up to 4 second pauses. tele brought strips up and placed on chart for MD to see. notified and is consulting cardiology
[2016-06-17] MEDS: HYDROcodone-APAP 10-325 mg PO PRN ×2 (15:20→20:52)
--- NOTE | 2016-06-17 17:44 | CONS ---
[address] [address] CONSULTATION REPORT PATIENT: SUZANNE ROJAS : 1970 MR#: [id number] ADMIT: 06/14/2016 JOB ID: [id number] DATE OF SERVICE: 06/17/2016 CARDIOLOGY CONSULTATION: I have been asked by the hospitalists to see the patient for asymptomatic intermittent bradycardia. HISTORY OF PRESENT ILLNESS: The patient is a 46-year-old male with a history of chronic renal failure due to a history of untreated hypertension years ago, who has been dialysis dependent for the past nine years. He was admitted to the hospital on June 14 with evidence of gram-positive sepsis with two blood cultures growing Staph aureus, presenting with a temperature of 104 and symptoms of nausea, vomiting, and diarrhea. Throughout his hospital course he has had intermittent episodes of periodic sinus pauses on telemetry that do not appear to be associated with any particular time of day. On one occasion, yesterday at about 1:00 in the afternoon, he had a sinus pause of close to 4 seconds' duration which was asymptomatic. It is not entirely clear at the time whether the patient was nauseated or vomiting. He is feeling better today and in fact, when I see him this evening, he looks well, sitting on the bed. He denies any history of syncope or near syncope or transient episodes of lightheadedness. He is not complaining of any significant pain or discomfort and has no headache. He denies any recurrent bladder or bowel discomfort or problems, and again no nausea today. This gentleman has a history as well of insulin-dependent diabetes for a number of years and smoked up until the past five years or so. He was evaluated fairly thoroughly in 2011 for a possible renal transplant and was seen by Dr. Cheung at that time. He had an echocardiogram at that time that was read as showing an ejection fraction in the range of 40% to 45% with diffuse hypokinesis and a nuclear cardiac stress study suggested a small area of possible basal lateral reversible perfusion abnormality. He underwent diagnostic coronary angiography and a fairly complete heart catheterization by Dr. Cheung in November 2011 demonstrating elevated left and right ventricular filling pressures as well as moderate pulmonary hypertension. His ejection fraction on ventriculography was around 45%, with a normal cardiac index of 2.7 L/minute per meter squared. Coronary angiography demonstrated mild atherosclerotic plaque and calcification, with no significant obstructive lesions seen, and peripheral aortogram and lower extremity arteriograms did not demonstrate any significant aortic, iliac, femoral, or popliteal stenoses, though there was apparent small vessel disease in his feet. It is notable at the time that the patient was on a statin medication, but appears not to have been taking a statin for the last couple of years for uncertain reasons, The patient's current home medications include aspirin 81 mg a day. He takes calcium and vitamin D, Renvela 800 mg t.i.d., as well as insulin. He has a history of significant obesity and was previously recommended to undergo evaluation for obstructive sleep apnea. FAMILY HISTORY: Notable for apparently his father who ended up with amputations of both lower extremities from diabetes. REVIEW OF SYSTEMS: Notable for the absence of TIA or stroke-like symptoms. He admits to daytime fatigue and a history of nocturnal snoring. He is not very active physically. Admits to symptoms of mild exertional dyspnea but has no complaints of angina-like chest discomfort. He has bilateral numbness in both feet. No history of melena or hematochezia or hematuria. ALLERGIES: No known allergies. SOCIAL HISTORY: Otherwise unremarkable. PHYSICAL EXAMINATION: Shows a very pleasant, morbidly obese male. HEENT examination is notable for the fact that he is edentulous. Jugular venous pressure is elevated, with an internal jugular venous pulse visible at the earlobe with the patient at about 45 degrees. Lung hawkins are clear, though breath sounds are somewhat distant. Cardiac auscultation is notable for an occasional bradycardic pause. I do not hear any cardiac murmur or ventricular gallop. Abdomen is morbidly obese. I do not appreciate any aortic abdominal bruits. Femoral pulses are present, without obvious bruits. I cannot feel popliteal or pedal pulses. His left foot is wrapped because of a sore on the lateral aspect of his left foot. He has some trophic changes in both lower extremities and venous stasis changes to the mid calf and mild pretibial edema. LABORATORY DATA: Notable for a fairly significant anemia with a hemoglobin of 8.6 and hematocrit of 26.9, his platelet count is slightly low at 129. His chemistries as of today show a slightly low sodium of 131. His potassium is normal. CO2 was normal. Creatinine 7.73. Blood sugar slightly elevated. Troponin has been moderately elevated all along, with no significant rise and fall. Lipid profile is not available. Chest x-ray is unremarkable. IMPRESSION: 1. In reviewing this patient's medical records I see that he has had episodes of significant sinus bradycardia and bradycardic pauses which date back to August 2013. He has never been symptomatic with an episode of bradycardia. There does not appear to be an obvious component, but it is clear that his intrinsic vagal tone is increased, and I would expect that if he were to develop symptoms related to a persistent sinus bradycardia or prolonged sinus pause that he would respond well to atropine. At this point, I do not believe any further intervention is needed, though it would be reasonable to set him up for consultation in our office with Dr. Marie to establish care since it may well be that he will require pacemaker therapy in the future. Certainly he should avoid beta blockers or calcium channel blockers that would interfere with his sinus node function and care should be taken to avoid problems with symptomatic hyper- or hypokalemia as well. 2. Mild coronary atherosclerosis: This patient should be restarted up on statin therapy with atorvastatin 80 mg daily. 3. Peripheral arterial disease: Same recommendations as above. 4. Probable obstructive sleep apnea: An outpatient sleep study should be strongly encouraged. I appreciate seeing this patient in consultation and will follow up with his telemetry evaluation tomorrow. If any further assistance is needed, do not hesitate to let me know.
--- NOTE | 2016-06-17 20:27 | PCM.CHPPOD ---
Subjective Date of service Jun 17, 2016 History of Present Illness Patient admitted with sepsis, bacteremia, thought to have an infected dialysis port. Left foot necrosis and fluctuance noted, possibly a source of infection. He has a chronic corn on the 5th digit and was last seen by Dr. Wright in April for preventive care. Reason for Consultation Left foot infection. Allergy Allergies: Coded Allergies: No Known Allergies (Verified , 06/14/16) Medications Blood Thinners: Aspirin Acetaminophen (Acetaminophen) 325 Mg Capsule 325 MG PO Q4H PRN PRN For Pain Aspirin (Aspirin) 81 Mg Tablet 81 MG PO DAILY Calcium Acetate (Calcium Acetate) 667 Mg Capsule 2 EACH PO TIDWM Cholecalciferol (Vitamin D3) (Vitamin D3) 1,000 Unit Tab.chew 1,000 UNIT PO DAILY Insulin Glargine (Lantus U100 Insulin Vial) 100 Unit/Ml Vial 30 UNIT SUBQ QPM Insulin Human Lispro (HumaLOG U100 Insulin Vial) 100 Unit/Ml Unit 10 UNITS SQ ACHS Sevelamer Carbonate (Renvela) 800 Mg Tablet 800 MG PO TID Past Medical History Reviewed Admit H&P dictated by: Dr. Lazo Surgeries: Yes (fistula, fistulogram) Medical History: (1) DM manif NEC type II (2) Ulcer of heel and midfoot (3) Polyneuropathy in diabetes (4) End-stage renal disease Surgical History: Social History Hx Alcohol Use: No Hx Substance Use: No Hx Tobacco Use: Yes Smoking Status: Former Smoker Podiatry Consult Exam Vital Signs Vital Sign - Last Date Time Temp Pulse Resp B/P Pulse Ox O2 Delivery O2 Flow Rate FiO2 06/17/16 18:11 36.9 58 18 100/50 95 Room Air 06/16/16 05:46 2.00 Intake and Output 06/16/16 06/16/16 06/17/16 Cumulative From/Thru 15:00 23:00 07:00 06/14/16 11:17 - 06/17/16 06:50 Intake Total 715 ml 400 ml 4449 ml Output Total 3000 ml 0 ml 0 ml 3250 ml Balance -3000 ml 715 ml 400 ml 1199 ml Intake Oral 636 ml 400 ml 2486 ml IV Total 79 ml 1963 ml Output Urine Total 0 ml 0 ml 0 ml Stool Total 250 ml Ultrafiltrate 3000 ml 3000 ml # Bowel Movements 4 Result Diagram: 06/17/16 0548 06/17/16 0548 Lab Test 06/14/16 12:15 06/15/16 02:36 06/15/16 10:30 06/15/16 18:45 Hemoglobin A1c 6.5% (4.8-5.6) Procalcitonin 70.45ng/mL (See Comment) Phosphorus Level 5.8mg/dL (2.5-4.9) Total Bilirubin 0.9mg/dL (0.0-1.2) Aspartate Amino Transf (AST/SGOT) 28U/L (0-50) Alanine Aminotransferase (ALT/SGPT) 13U/L (0-44) Alkaline Phosphatase 61U/L (25-150) Troponin T 0.142ug/L (0.0-0.011) Total Protein 7.0g/dL (6.4-8.4) Albumin 3.2g/dL (3.4-5.0) Lipase 9U/L (13-60) Magnesium Level 2.0mg/dL (1.6-2.6) Lactic Acid Level 1.5mmol/L (0.4-2.0) Test 06/16/16 14:55 06/17/16 05:48 Vancomycin Level Trough 22.0mcg/mL White Blood Count 7.3th/mm3 (3.8-10.1) Red Blood Count 2.69mil/mm3 (4.40-5.80) Hemoglobin 8.6g/dL (13.8-17.2) Hematocrit 26.9% (41.0-50.0) Mean Corpuscular Volume 100.0fL (81-100) Mean Corpuscular Hemoglobin 32.0pg (27.0-35.0) Mean Corpuscular Hemoglobin Concent 32.0% (32.0-37.0) Red Cell Distribution Width 15.0% (12.3-15.4) Platelet Count 129bil/L (150-400) Neutrophils (%) (Auto) 71.1% (40-74) Lymphocytes (%) (Auto) 12.1% (14-46) Monocytes (%) (Auto) 12.6% (4-12) Eosinophils (%) (Auto) 3.2% (0-5) Basophils (%) (Auto) 0.6% (0-3) Sodium Level 131mEq/L (134-144) Potassium Level 4.2mEq/L (3.5-5.2) Chloride Level 91mEq/L (97-108) Carbon Dioxide Level 25mmol/L (18-29) Blood Urea Nitrogen 33mg/dL (6-24) Creatinine 7.73mg/dL (0.76-1.27) Estimat Glomerular Filtration Rate 8mL/min (>59) Glucose Level 144mg/dL (60-99) Calcium Level 8.4mg/dL (8.5-10.1) Hold Wolfe Top Tube Received (Received) Exam Lower Extremities: Left: Edema localized (foot, distal leg) Extremity warm (erythema in lateral foot, loer leg, no lymphangitis) Lower Extremity Pulses: Doppler: Left Dorsalis Pedis Left Posterior Tibal Right Dorsalis Pedis Right Posterior Tibal Podiatry WOUND : Wound Location/Description Left foot, 5th MTP joint necrosed area of skin 5cm long and 3cm wide, fluctuant , contiguous with corm on the 5th toe, PIP joint. No open lesions on the right foot. Assessment & Plan Problems: (1) Abscess of foot including toes Qualifiers: Laterality: left Qualified Code: L02.612 - Cutaneous abscess of left foot Plan: With patient's permission, I cleansed the left foot, started debridement of the left 5th PIP joint callus, encountered brown clear fluid, desquamation without bleeding, and an abscess tracking proximal to the 5th MTP joint. I excised the entire area 5x3cm and final depth of 1cm, including skin, subcutaneous tissue, and some capsular tissue. Once bleeding was encountered and most of necrotic tissue excised, I irrigated it with katherine saline and dressed with NS moistened gauze and dry Kerlix and tape. I will recheck it tomorrow and continue gradual debridement, if the toe is viable. Otherwise, amputation of the 5th toe may be necessary. Status: Acute ICD Code: L02.619 (2) DM manif NEC type II Plan: Continue tight blood sugar control. Status: Acute ICD Code: E11.69 (3) End-stage renal disease Plan: Antibiotics as per Dr. Haegr in conjunction with dialysis. Foot culture specimen sent today after abscess drained and area debrided. Status: Acute ICD Code: N18.6 VTE Mechanical Devices: Intermittant Pneumatic CD Aurea Ellis DPM Jun 17, 2016 20:27
[2016-06-18] VITALS (9 sets, daily range): BP systolic 102–123; BP diastolic 41–71; PULSE 41–62; RESP 18; O2SAT 91–100
[2016-06-18] MEDS: Albuterol-Ipratropium 3 mL Inhalation Solution NEB SCH ×4 (06:00→21:00)
[2016-06-18] MEDS: Insulin LISPRO 300 Unit/3 mL Inj SUBQ SCH ×4 (07:21→20:47)
[2016-06-18 07:51] LABS: EOSINOPHILS % (AUTO) 3.8 % (0-5); Mean Corpuscular Hemoglobin 31.8 pg (27.0-35.0); Mean Corpuscular Volume 99.6 fL (81-100); NEUTROPHILS % (AUTO) 65.8 % (40-74); Platelet Count 144 bil/L (150-400)
[2016-06-18] MEDS: CeFAZolin Inj 2 GM in IV Premix 1 EACH IV SCH (08:37)
--- NOTE | 2016-06-18 13:09 | PCM.PNMED ---
Subjective Date of Service Jun 18, 2016 Subjective The patient is afebrile and offers no new complaints. He denies any flushing or chills, chest pain, or shortness of breath. He has been persistently bradycardic with heart rates in the 40s to 50s. I discussed the case with Dr. Mckeon and expressed my concerns about the possibility that his AV graft is infected and my plan is to have Dr. Junior located him in the morning. Although his transthoracic echo was negative my impression and transesophageal echo. At the same time to cardiology's opinion on the patient's bradycardia. I have reviewed his medications and he is currently not on any calcium channel blockers, beta blockers, or combined alpha and beta blockers. His potassium levels 40 is 5. Vital signs patient on his blood cultures showed MSSA. Exam Vital Signs Vital Sign - Last Date Time Temp Pulse Resp B/P Pulse Ox O2 Delivery O2 Flow Rate FiO2 06/18/16 09:58 48 06/18/16 09:37 36.8 18 116/49 91 Room Air 06/16/16 05:46 2.00 Intake and Output 06/17/16 06/17/16 06/18/16 Cumulative From/Thru 15:00 23:00 07:00 06/14/16 11:17 - 06/18/16 06:09 Intake Total 900 ml 400 ml 5749 ml Output Total 0 ml 0 ml 3250 ml Balance 900 ml 400 ml 2499 ml Intake Oral 900 ml 400 ml 3786 ml IV Total 1963 ml Output Urine Total 0 ml 0 ml 0 ml Stool Total 250 ml Ultrafiltrate 3000 ml # Bowel Movements 4 Exam Neck is supple without adenopathy thyromegaly or jugular venous distention. Lungs are clear to auscultation. Heart is regular with a soft systolic murmur. Abdomen is soft without any tenderness rebound guarding masses or hepatosplenomegaly. Extremities do not show significant clubbing, cyanosis, or edema. Over his left upper extremity does not show any evidence of erythema or warmth. Lab and Diagnostics Result Diagram: 06/18/16 0740 06/18/16 0740 X-Rays, CTs and MRIs 06/15 Arteriogram IMPRESSION: 1. Status post angioplasty at the graft/artery anastomosis and the graft/vein anastomosis in addition to TPA administration and maceration of the residual nonocclusive thrombus as described above. Please note, the central portion of the outflow vein was not imaged. If there is clinical concern for central venous stenosis, fistulogram with attention directed to the central portion of the venous outflow is recommended. This finding was discussed with Dr. Corea at 3:55 PM on 06/15/16. Cardiac Echo Impressions echo completed - Referring Physician: GRACIA MCKEON Interpretation Summary No obvious valvular vegetations; however, image quality was rather poor. The left ventricle is normal in size. The ejection fraction is estimated to be 55-60%. There is moderate mitral annular calcification. There is no vegetation seen on the mitral valve. There is no aortic valvular vegetation. There is no tricuspid valve vegetation. There is no vegetation on the pulmonic valve. There is moderate pulmonary hypertension. The right ventricular systolic pressure is estimated at 48 mmHg assuming a right atrial pressure of 3 mm Hg. No other echocardiographic abnormalities seen. Since the prior exam from 09/02/2013, the TR has worsened and the PA pressure is increased. Otherwise no significant changes seen. Assessment & Plan Impression #1 clotted left upper arm AV graft with possible infection superimposed. #2 end-stage renal disease dialysis dependent #3 peripheral vascular disease with multiple foot ulcers #4 methicillin sensitive staph aureus bacteremia #5 bradycardia Recommendations #[address] Junior's employed as far as what direction we should go in short-term and long-term management of this unfortunate patient. # 2 transesophageal echocardiography with cardiology evaluation to evaluate her bradycardia. VTE Mechanical Devices: Intermittant Pneumatic CD Resuscitation Status: CPR: Attempt Resuscitation Gracia Corea DO Jun 18, 2016 13:09
--- NOTE | 2016-06-18 14:21 | PCM.PNMED ---
Subjective Date of Service Jun 18, 2016 Subjective Patient seen and visits morning, up in chair, no complaints of chest pain shortness breath or dizziness. Saw podiatry yesterday and denies she plans to do more intervention to left foot today. Cardiology evaluated patient for sinus pauses and currently no intervention necessary per cardiology. Exam Vital Signs Vital Sign - Last Date Time Temp Pulse Resp B/P Pulse Ox O2 Delivery O2 Flow Rate FiO2 06/18/16 13:30 36.9 51 18 111/44 100 Room Air 06/16/16 05:46 2.00 Intake and Output 06/17/16 06/17/16 06/18/16 Cumulative From/Thru 15:00 23:00 07:00 06/14/16 11:17 - 06/18/16 06:09 Intake Total 900 ml 400 ml 5749 ml Output Total 0 ml 0 ml 3250 ml Balance 900 ml 400 ml 2499 ml Intake Oral 900 ml 400 ml 3786 ml IV Total 1963 ml Output Urine Total 0 ml 0 ml 0 ml Stool Total 250 ml Ultrafiltrate 3000 ml # Bowel Movements 4 Exam Gen.: No acute distress, alert and oriented, pleasant HEENT: Normocephalic/atraumatic, pupils equal round react to light and accommodation,EOMI, Anicteric sclera, No mucosal ulcerations Neck: No JVD, lymphadenopathy, no thyromegaly Cardiovascular: No rubs clicks murmurs or gallops, regular rate Respiratory: Clear to auscultation bilaterally no wheezes rales or rhonchi, good historian effort GI: Soft, nontender to palpation no masses no hepatosplenomegaly noted no peritoneal signs or rebound tenderness. Extremities: No clubbing cyanosis, 1+ edema, warm, left foot wrapped with bandage Psych: Mood appropriate, affect appropriate, no tangential thought or speech IVs and Medications Medications Reviewed: Medications were reviewed in detail Lab and Diagnostics Result Diagram: 06/18/16 0740 06/18/16 0740 X-Rays, CTs and MRIs 06/15 Arteriogram IMPRESSION: 1. Status post angioplasty at the graft/artery anastomosis and the graft/vein anastomosis in addition to TPA administration and maceration of the residual nonocclusive thrombus as described above. Please note, the central portion of the outflow vein was not imaged. If there is clinical concern for central venous stenosis, fistulogram with attention directed to the central portion of the venous outflow is recommended. This finding was discussed with Dr. Corea at 3:55 PM on 06/15/16. Cardiac Echo Impressions echo completed - Referring Physician: GRACIA MCKEON Interpretation Summary No obvious valvular vegetations; however, image quality was rather poor. The left ventricle is normal in size. The ejection fraction is estimated to be 55-60%. There is moderate mitral annular calcification. There is no vegetation seen on the mitral valve. There is no aortic valvular vegetation. There is no tricuspid valve vegetation. There is no vegetation on the pulmonic valve. There is moderate pulmonary hypertension. The right ventricular systolic pressure is estimated at 48 mmHg assuming a right atrial pressure of 3 mm Hg. No other echocardiographic abnormalities seen. Since the prior exam from 09/02/2013, the TR has worsened and the PA pressure is increased. Otherwise no significant changes seen. Assessment & Plan Sepsis syndrome 2/2 staph bacteremia , positive culture on 06/14 -- Likely sources for ulcer, with history of peripheral vascular disease, see below -- Given cultures continue cefazolin per infectious disease, and have discontinued vancomycin Zosyn and Levaquin -- Echo without evidence of vegetations, ID would like EMILY if persistent positive cultures prior to discharge possibly tomorrow Sunday --, monitor cultures, continues with no growth --hx mrsa --zofran ESRD --Clotted AV graft, status post angiogram with thrombolysis --Compression nephrology recommendations, Dr. Corea on consult, appreciate evaluation -- Continue sevelamer Left foot ulceration -Increased pain control with Lynx when necessary with scheduled bowel regimen -- Per wound care note:fluctuant area at dorsum of 5th met head left foot and draining thin brownish fluid with odor -Consult podiatry on 06/17, debridement occurred and possible surgical intervention today, appreciate podiatry recommendations Hypertension -Currently stable DM/with complications including diabetic nephropathy and peripheral vascular disease --resume home meds -- Sliding scale, hypoglycemic protocol -- Aspirin 81 mg Pain Evaluation: Adequate Pain Control VTE Mechanical Devices: Intermittant Pneumatic CD Resuscitation Status: CPR: Attempt Resuscitation Time spent 30 minutes spent with evaluation and management Attending Statement Disposition: Likely able to discharge after EMILY as recommended by infectious disease, also pending for podiatry assessment with discussion of possible need for surgical intervention/amputation of left fifth digit Ian Lazo DO Jun 18, 2016 14:21
--- NOTE | 2016-06-18 14:36 | NUR ---
L. foot dressing Pt. called nursing to have L. foot dressing changed. Dressing came loose after the ulcer was assessed by a doctor according to pt. L. 5th toe base has deep ulcer. Moist NS gauze was used to cover the ulcer and Kerlix was used to secure the gauze. Pt. denied pain. He was transferred to a chair for breakfast this morning. Surgical (Dr. Junior) to see pt. tomorrow regarding his L/ arm fistula.
--- NOTE | 2016-06-18 15:41 | NUR ---
Social Work: Continued d/c planning Data: Pt is on day 4 of hospitalization. EMR reviewed. states that pt will need a EMILY on 06/19 and will have a podiatry consult. No further d/c planning needs anticipated at this time. BALANCE CLERK will continue to follow if needs arise. Assessment: Pt who is independent at baseline. Plan: Pt will d/c home via POV with brother when medically stable. No further d/c planning needs anticipated at this time. BALANCE CLERK will continue to follow if needs arise. TIERNEY Cruz Addendum: 06/18/16 at 1543 by VIANEY GIMENEZ Pt likely will need IVABX at d/c and hopes to complete this with his dialysis. TIERNEY Cruz
--- NOTE | 2016-06-18 16:48 | PROG NOTE ---
[address] [address] PROGRESS NOTE PATIENT: SUZANNE ROJAS : 1970 MR#: [id number] ADMIT: 06/14/2016 JOB ID: [id number] DATE: 06/18/2016 REASON FOR FOLLOWUP: High-grade MSSA bacteremia. INTERVAL HISTORY: This is a complex case who was originally seen in consult back on the . At that time, he had a high-grade Staph bacteremia and the question was if this was a MRSA or not and what was the site of the origin of this infection. It subsequent turned out this was an MSSA infection and we switched his antibiotic therapy to cefazolin. The patient has done quite well on this therapy in that his fevers and chills have resolved, and he is starting to feel gradually better. At this point, he has no new respiratory or GI complaints, his fevers, chills and sweats have ended, and overall he is feeling back towards his normal self. Unfortunately, his dialysis graft in his left upper extremity refuses to function properly and Dr. Corea of Nephrology this morning discussed with me the possibility that the graft is infected. The patient notes, however, that the graft is neither warm nor tender, just clots off and does not work well. He continues to have some discomfort around his left dorsal 5th toe area and, in fact, this area was evaluated and debrided by Dr. Ellis yesterday who found an abscess there. We had been concern last week about the possibility of a Staph bacteremia arising from his very abnormal feet in which he has neuropathy and vascular disease. PHYSICAL EXAMINATION: Reveals an afebrile gentleman, temperature 36.8, pulse 50, blood pressure 116/49. He is saturating reasonably well on room air. He is quite comfortable today. Oral cavity negative. Lungs fairly clear. Abdomen: Soft and nontender. The left foot ulcer has been debrided, and there is now packed opening present over the dorsal left 5th metatarsophalangeal joint. LABORATORIES: Include white count 7600, it has completely normalized. Platelets have improved to 144,000. His creatinine is 9.7. Micro studies include the positive blood cultures for MSSA back on the . Multiple follow-up blood cultures have been negative. The patient's initial echocardiogram showed no gross evidence of valvular involvement but as noted by Dr. Del Rosario who read the echo, the image quality was poor in terms of the valves. IMPRESSION: This is long-term dialysis patient presents with high-grade methicillin-sensitive Staphylococcus aureus bacteremia which is now resolved with appropriate antibiotic management. Whether or not to treat him for two, four or six weeks will depend on whether his heart valves are involved and/or whether or not his graft is involved. I discussed this case in detail this morning with Dr. Corea of Nephrology who is very concerned that the graft may be infected and require removal or revision. RECOMMENDATIONS: 1. I would continue with Ancef for at least two and probably more likely six weeks before we are done. This can be conveniently given at the end of each dialysis as was mentioned in Sunday's note. 2. Plan to discuss this case with Dr. Ellis tomorrow of podiatry. I believe that the MSSA bacteremia arose from the foot rather than the graft, though it is certainly possible the graft was secondarily seeded. 3. We await the input from Dr. Junior of Surgery tomorrow regarding the vascular access graft and whether or not this needs to be revised or removed.
--- NOTE | 2016-06-18 20:55 | PCM.PNPOD ---
Subjective Date of Service: Jun 18, 2016 Visit Information: Reason for Visit FEVER Surgery/Surgery Date I&'D of left foot with wide debridement of skin, soft tissue, and capsule, 06/17/16 Date of Admission: Jun 14, 2016 at 17:00 Postop General: No Complaints Gastrointestinal: Good Appetite Pain Management: No or Minimal Pain Neurological: Numbness (neuropathy at baseline) Postop Activity: Ambulate without Assist Objective Vital Sign - Last Date Time Temp Pulse Resp B/P Pulse Ox O2 Delivery O2 Flow Rate FiO2 06/18/16 20:38 37.2 41 18 106/48 96 Room Air 06/16/16 05:46 2.00 Intake and Output 06/17/16 06/17/16 06/18/16 Cumulative From/Thru 15:00 23:00 07:00 06/14/16 11:17 - 06/18/16 06:09 Intake Total 900 ml 400 ml 5749 ml Output Total 0 ml 0 ml 3250 ml Balance 900 ml 400 ml 2499 ml Intake Oral 900 ml 400 ml 3786 ml IV Total 1963 ml Output Urine Total 0 ml 0 ml 0 ml Stool Total 250 ml Ultrafiltrate 3000 ml # Bowel Movements 4 Result Diagram: 06/18/16 0740 06/18/16 0740 Lab Test 06/14/16 12:15 06/15/16 02:36 06/15/16 10:30 06/15/16 18:45 Hemoglobin A1c 6.5% (4.8-5.6) Procalcitonin 70.45ng/mL (See Comment) Phosphorus Level 5.8mg/dL (2.5-4.9) Total Bilirubin 0.9mg/dL (0.0-1.2) Aspartate Amino Transf (AST/SGOT) 28U/L (0-50) Alanine Aminotransferase (ALT/SGPT) 13U/L (0-44) Alkaline Phosphatase 61U/L (25-150) Troponin T 0.142ug/L (0.0-0.011) Total Protein 7.0g/dL (6.4-8.4) Albumin 3.2g/dL (3.4-5.0) Lipase 9U/L (13-60) Magnesium Level 2.0mg/dL (1.6-2.6) Lactic Acid Level 1.5mmol/L (0.4-2.0) Test 06/16/16 14:55 06/17/16 05:48 06/18/16 07:40 Vancomycin Level Trough 22.0mcg/mL Hold Wolfe Top Tube Received (Received) White Blood Count 7.6th/mm3 (3.8-10.1) Red Blood Count 2.74mil/mm3 (4.40-5.80) Hemoglobin 8.7g/dL (13.8-17.2) Hematocrit 27.3% (41.0-50.0) Mean Corpuscular Volume 99.6fL (81-100) Mean Corpuscular Hemoglobin 31.8pg (27.0-35.0) Mean Corpuscular Hemoglobin Concent 31.9% (32.0-37.0) Red Cell Distribution Width 15.2% (12.3-15.4) Platelet Count 144bil/L (150-400) Neutrophils (%) (Auto) 65.8% (40-74) Lymphocytes (%) (Auto) 14.0% (14-46) Monocytes (%) (Auto) 12.0% (4-12) Eosinophils (%) (Auto) 3.8% (0-5) Basophils (%) (Auto) 2.0% (0-3) Sodium Level 134mEq/L (134-144) Potassium Level 5.0mEq/L (3.5-5.2) Chloride Level 91mEq/L (97-108) Carbon Dioxide Level 23mmol/L (18-29) Blood Urea Nitrogen 44mg/dL (6-24) Creatinine 9.70mg/dL (0.76-1.27) Estimat Glomerular Filtration Rate 6mL/min (>59) Glucose Level 143mg/dL (60-99) Calcium Level 8.9mg/dL (8.5-10.1) Exam General: Alert, Oriented X3, Cooperative, No Acute Distress Lower Extremities: Left: Edema localized (foot, resolving in distal leg) Extremity warm (erythema in lateral foot, resolving in lateral leg) Lower Extremity Pulses: Doppler: Left Dorsalis Pedis Left Posterior Tibal Right Dorsalis Pedis Right Posterior Tibal Podiatry WOUND : Wound Location/Description Left foot post-debridement: 5cm x 3cm wound x1cm deep, 30% granular tissue, 30% soft eschar, rest capsular. Right foot no open ulcers. Chronic postulcerative callus plantar 1st IP joint. Assessment & Plan Problems: (1) Abscess of foot including toes Qualifiers: Laterality: left Qualified Code: L02.612 - Cutaneous abscess of left foot Plan: With patient's permission, I irrigated the left foot wound, and dressed with Aquacel AG, NS moistened gauze and dry Kerlix and tape. I will recheck it tomorrow and continue periodic wound debridement. It looks like the toe is viable. This could very well have been the starting point of his infection. New microbiology results show no organisms, but IV antibiotics could have an effect on that. Duration if antibiotic for 6 weeks could ensure maintaining the viability of the 5th toe with local wound care. Patient may decide which Wound Clinic to choose, [place] or [facility]. Status: Acute ICD Code: L02.619 (2) DM manif NEC type II Plan: Continue tight blood sugar control. Status: Acute ICD Code: E11.69 (3) End-stage renal disease Plan: Antibiotics as per Dr. Hager in conjunction with dialysis. Foot culture specimen results should be finalized tomorrow. Status: Acute ICD Code: N18.6 Aurea Ellis DPM Jun 18, 2016 20:55
[2016-06-19] VITALS (11 sets, daily range): BP systolic 100–173; BP diastolic 48–74; PULSE 35–68; RESP 16–18; O2SAT 94–100
[2016-06-19] MEDS: HYDROcodone-APAP 10-325 mg PO PRN ×2 (03:29→22:05)
[2016-06-19] MEDS: Albuterol-Ipratropium 3 mL Inhalation Solution NEB SCH ×4 (06:00→21:04)
--- NOTE | 2016-06-19 06:29 | NUR ---
Pain/desating/bradycardia: Pt c/o L mid back pain x2, medication administered; effective. Pt states pain increases with deep breathing. Pt on 2L O2 NC changed to oxymask with cont pulse ox during the night, pt noted to desat to 80% and would bounce back up to mid 90's after a few seconds. HR during the night mid 30's to 42, pt had some dips to 29; asymptomatic, sleeping. Pt slept most of the night, pleasant and cooperative with care. 5
--- NOTE | 2016-06-19 06:37 | NUR ---
DuoNeb treatment/Potassium: DuoNeb treatment ordered, pt had not received any for a couple of days, RN asked RT about this and RT stated she did not have pt on her list. RN will pass to dayshift to verify if MD still wants treatment. Potassium came back this am at 7.2, lab redrawing, awaiting results.
[2016-06-19] MEDS: Insulin LISPRO 300 Unit/3 mL Inj SUBQ SCH ×4 (08:00→22:06)
[2016-06-19] MEDS ORDERED: Calcium GLUCO 10% (Gm) 1 Gm/10 mL 50 mL Inj IV ONE (08:25)
[2016-06-19] MEDS ORDERED: Calcium Chloride 10% (Gm) 1 Gm/10 mL Inj IV ONE (08:50)
[2016-06-19] MEDS ORDERED: Albuterol 2.5 mg/3 mL Inhalation Solution NEB ONE (09:50)
[2016-06-19] MEDS ORDERED: Insulin Human REGular-Omnicell 100 Unit/mL IV ONE ×2 (10:00→10:45)
--- NOTE | 2016-06-19 10:32 | PCM.PNMED ---
Subjective Date of Service Jun 19, 2016 Subjective Waqas states that he is feeling pretty well this morning. He denies any chills or night sweats. Access is not available for hemodialysis due to occlusion of the fistula, thus he is not able to have dialysis today. Sunday, Sunday, and Sunday are his usual hemodialysis days. Exam Vital Signs Vital Sign - Last Date Time Temp Pulse Resp B/P Pulse Ox O2 Delivery O2 Flow Rate FiO2 06/19/16 09:20 36.7 39 18 125/53 96 Room Air 06/19/16 05:10 2.00 Intake and Output 06/18/16 06/18/16 06/19/16 Cumulative From/Thru 15:00 23:00 07:00 06/14/16 11:17 - 06/19/16 05:12 Intake Total 711 ml 6460 ml Output Total 3250 ml Balance 711 ml 3210 ml Intake Oral 636 ml 4422 ml IV Total 75 ml 2038 ml Output Urine Total 0 ml Stool Total 250 ml Ultrafiltrate 3000 ml # Bowel Movements 1 5 Exam General: Resting comfortably in bed upon my entering the room. No acute distress , alert and oriented. HEENT: Normocephalic/atraumatic, pupils equal round react to light and accommodation, Anicteric sclera, mucus membranes moist Cardiovascular: Regular rhythm with a heart rate of approximately 60 during auscultation. No murmur, rub, or gallop. No JVD. Respiratory: Good inspiratory effort without wheezes rales or rhonchi. GI: Normoactive bowel tones. Soft, nontender and nondistended. Extremities: No clubbing cyanosis, mild pitting (1+) edema distal to the knees, warm, left foot wrapped with dressing. Toes are pink with capillary refill of 2s bilaterally Psych: Mood appropriate, normal affect. Pleasant. Lab and Diagnostics Result Diagram: 06/18/16 0740 06/19/16 0535 X-Rays, CTs and MRIs 06/15 Arteriogram FINDINGS: Initial fistulogram demonstrates occlusive thrombus within the central portion of the arteriovenous graft. Completion fistulogram demonstrates a widely patent graft without residual stenosis or intraluminal thrombus. IMPRESSION: 1. Status post angioplasty at the graft/artery anastomosis and the graft/vein anastomosis in addition to TPA administration and maceration of the residual nonocclusive thrombus as described above. Please note, the central portion of the outflow vein was not imaged. If there is clinical concern for central venous stenosis, fistulogram with attention directed to the central portion of the venous outflow is recommended. This finding was discussed with Dr. Corea at 3:55 PM on 06/15/16. Assessment & Plan Waqas is a 46yo [facility] male with ESRD on hemodialysis for 10 years who presented to [facility] with fever and was found to have MSSA bacteremia without an obvious source. He has ulcerations on the left foot which are currently thought to be the likely source of infection. MSSA bacteremia, present on admission - Initially had sepsis due to the bacteremia, sepsis now resolved - Blood cultures with growth of MSSA on 06/14/16, no growth on more recent blood cultures - Left foot ulceration is the probable source of infection - Cefazolin per Dr Hager's expertise, anticipate 6 weeks of antibiotic therapy. Received vancomycin, Zosyn, and Levaquin earlier in this hospitalization - EMILY to be done prior to discharge; no vegetations on transthoracic echo Hyperkalemia due to ESRD and inability to do hemodialysis at this time - Regular insulin with dextrose - Albuterol - Rectal Kayexalate - Recheck potassium at noon today - Discussed the importance of avoiding excessive dietary potassium with the patient who is very knowledgeable about this - Will monitor closely ESRD, chronically on hemodialysis without current access for HD -Clotted AV graft, status post angiogram with thrombolysis - Per Hospitalist, Dr Lazo, general surgeon, Dr Junior to evaluate the patient today - Nephrology providing expertise - Continue sevelamer and monitor serum phosphate level daily Left foot ulceration in the setting of peripheral vascular disease -Increased pain control with [place] PRN -Per wound care note:fluctuant area at dorsum of 5th met head left foot and draining thin brownish fluid with odor -Podiatry evaluated the patient with debridement performed yesterday Bradycardia, unclear chronicity - Evaluated by Dr Del Rosario (cardiology) and outpatient sleep study for evaluation of MABLE recommended - Avoid beta blockers and calcium channel blockers - Monitor Hypertension, chronic and stable -Continue to monitor DM/with complications including diabetic nephropathy and peripheral vascular disease - Home medications - Correctional scale insulin, hypoglycemic protocol - Aspirin 81 mg Bowel regimen PRN VTE Mechanical Devices: Intermittant Pneumatic CD Resuscitation Status: CPR: Attempt Resuscitation Attending Statement The patient was seen and examined together with Dr. Núñez on 06/19/2016 and I agree with the history, exam and plan as outlined in the note above. Alejandra Núñez DO Jun 19, 2016 10:32 Kodak Rodríguez MD Jun 19, 2016 14:38
[2016-06-19] MEDS ORDERED: Insulin Human REGular (HUMulin-R) 100 Unit/mL 10 mL IV ONE (10:35)
--- NOTE | 2016-06-19 11:00 | NUR ---
Potassium Redraw of K = 6.6. MD alerted. New orders received. D50 and insulin given. Pt tolerated well. Recheck of Potassium = 5.5. Call light with in reach, will continue to monitor.
--- NOTE | 2016-06-19 12:31 | PCM.PNMED ---
Subjective Date of Service Jun 19, 2016 Subjective clotted graft again noted s/p angioplasty at the graft/artery anastomosis and the graft/vein anastomosis in addition to TPA administration on 06/15. no CP/SOB. pending vascular eval. Exam Vital Signs Vital Sign - Last Date Time Temp Pulse Resp B/P Pulse Ox O2 Delivery O2 Flow Rate FiO2 06/19/16 11:14 35 06/19/16 10:21 16 98 Room Air 06/19/16 09:20 36.7 125/53 06/19/16 05:10 2.00 Intake and Output 06/18/16 06/18/16 06/19/16 Cumulative From/Thru 15:00 23:00 07:00 06/14/16 11:17 - 06/19/16 05:12 Intake Total 711 ml 6460 ml Output Total 3250 ml Balance 711 ml 3210 ml Intake Oral 636 ml 4422 ml IV Total 75 ml 2038 ml Output Urine Total 0 ml Stool Total 250 ml Ultrafiltrate 3000 ml # Bowel Movements 1 5 Exam General: No acute distress, alert and oriented x3. HEENT: atraumatic, anicteric sclera, mucus membranes moist Cardiovascular: Regular rhythm, soft systolic murmur noted, no rub, or gallop. No JVD. Respiratory: equal BS, no wheezes rales or rhonchi. GI: Normoactive bowel tones. Soft, nontender and nondistended. Extremities: No clubbing cyanosis, dressing on left foot, trace edema. Left AVG with no thrill and bruit. Psych: Mood appropriate, normal affect. Pleasant. Lab and Diagnostics Result Diagram: 06/18/16 0740 06/19/16 0535 X-Rays, CTs and MRIs 06/15 Arteriogram FINDINGS: Initial fistulogram demonstrates occlusive thrombus within the central portion of the arteriovenous graft. Completion fistulogram demonstrates a widely patent graft without residual stenosis or intraluminal thrombus. IMPRESSION: 1. Status post angioplasty at the graft/artery anastomosis and the graft/vein anastomosis in addition to TPA administration and maceration of the residual nonocclusive thrombus as described above. Please note, the central portion of the outflow vein was not imaged. If there is clinical concern for central venous stenosis, fistulogram with attention directed to the central portion of the venous outflow is recommended. This finding was discussed with Dr. Corea at 3:55 PM on 06/15/16. Assessment & Plan 1. ESRD on HD. 2. Hyperkalemia. 3. Clotted AVG. 4. MSSA bacteremia secondary to foot ulcer vs infected AVG. 5. Left foot diabetic ulcer. 6. HTN with hypertensive nephrosclerosis. 7. DM with nephropathy. Plan: medical management for hyperkalemia: RI, D50, albuterol, Kayexalate, calcium gluconate. repeat K level at noon. pending vascular sx eval. may need temporary cath/tunneled cath insertion if AVG is still not functioning. VTE Mechanical Devices: Intermittant Pneumatic CD Resuscitation Status: CPR: Attempt Resuscitation Casey Schrader MD Jun 19, 2016 12:31
[2016-06-19] MEDS ORDERED: 0.9% Sodium Chloride 500 ML ONE (13:15)
[2016-06-19] MEDS ORDERED: CeFAZolin Inj 1 GM in IV Premix 1 EACH IV ONE (14:30)
--- NOTE | 2016-06-19 17:04 | PROG NOTE ---
[address] [address] PROGRESS NOTE PATIENT: SUZANNE ROJAS : 1970 MR#: [id number] ADMIT: 06/14/2016 JOB ID: [id number] DATE: 06/19/2016 REASON FOR FOLLOWUP: High-grade MSSA bacteremia in a dialysis patient. INTERVAL HISTORY: The patient has continued to have problems with his left upper extremity graft and, for that reason, he has not been dialyzed today as was scheduled though the linoleum mechanic continued to be concerned that his graft may be infected and that is why it is dysfunctional, but the patient has no pain, warmth or tenderness there. He does note that he continues to have problems with his left lateral foot and that Dr. Ellis of Podiatry has now performed two debridements on this area. He has no fevers, chills, or sweats today. No respiratory problems and no nausea or vomiting. PHYSICAL EXAMINATION: Reveals an afebrile gentleman, temperature 36.7. Pulse is ranging between apparently the 30s and the 60s, respiratory rate in the teens, blood pressure 125/53. He is saturating fairly well on room air at 98%. He is awake and alert and without obvious distress. His oral cavity is unremarkable. Mental status: Sharp. Lungs: Relatively clear. A few crackles at the bases. Abdomen: Soft and nontender. The left upper extremity graft just above the antecubital fossa is nontender, and there is no erythema. His left foot is wrapped but one can see that there has been debridement along the dorsal surface of the left forefoot. LABORATORIES: Include white count 7600, hematocrit 27, platelet count 144,000, creatinine is currently 11.67 with a potassium earlier today 6.6, now reduced to 5.5. Culture from the left foot debridement is growing what appears to be a Staph organism. Follow-up blood cultures are negative but recall the admission blood cultures grew Staph aureus. IMPRESSION: This is a very difficult case of a dialysis patient who presents with a bacteremic left foot soft tissue infection which may have underlying osteomyelitis. This has been treated with Ancef and the patient's blood cultures have turned negative and he has felt clinically improved. Despite the improvement in his Staph bacteremia and his overall clinical status, the patient now has an even more severe problem in that his left upper extremity dialysis graft is not working. The dialysis team has raised questions of whether it might be infected, but clinically it does not appear to be and I suspect the most likely source of his Staph bacteremia is his left foot rather than his graft. Nonetheless, it is possible that the left graft is infected and that is the cause of the dysfunction. RECOMMENDATIONS: 1. Will continue with Ancef on a Sunday, Sunday, Sunday schedule. 2. Today, we will have to give a supplemental 1 g dose of Ancef because our usual 322 program has been thrown off by the lack of dialysis today. 3. If we are not able to obtain a EMILY or if we choose not to, I would treat the patient for a full six weeks with Ancef. 4. We await input from Dr. Junior of General Surgery regarding the fate of his graft.
--- NOTE | 2016-06-19 18:31 | PCM.PNPOD ---
Subjective Date of Service: Jun 19, 2016 Visit Information: Reason for Visit FEVER Surgery/Surgery Date Post-Op Day # Date of Admission: Jun 14, 2016 at 17:00 Hospital Day # Postop General: No Complaints Gastrointestinal: Good Appetite Pain Management: No or Minimal Pain Neurological: Numbness (peripheral neuropathy at baseline.) Objective Vital Sign - Last Date Time Temp Pulse Resp B/P Pulse Ox O2 Delivery O2 Flow Rate FiO2 06/19/16 15:10 68 18 98 Room Air 06/19/16 15:00 36.6 158/72 06/19/16 05:10 2.00 Intake and Output 06/18/16 06/18/16 06/19/16 Cumulative From/Thru 15:00 23:00 07:00 06/14/16 11:17 - 06/19/16 05:12 Intake Total 711 ml 6460 ml Output Total 3250 ml Balance 711 ml 3210 ml Intake Oral 636 ml 4422 ml IV Total 75 ml 2038 ml Output Urine Total 0 ml Stool Total 250 ml Ultrafiltrate 3000 ml # Bowel Movements 1 5 Result Diagram: 06/18/16 0740 06/19/16 1250 Lab Test 06/14/16 12:15 06/15/16 02:36 06/15/16 10:30 06/15/16 18:45 Hemoglobin A1c 6.5% (4.8-5.6) Procalcitonin 70.45ng/mL (See Comment) Phosphorus Level 5.8mg/dL (2.5-4.9) Total Bilirubin 0.9mg/dL (0.0-1.2) Aspartate Amino Transf (AST/SGOT) 28U/L (0-50) Alanine Aminotransferase (ALT/SGPT) 13U/L (0-44) Alkaline Phosphatase 61U/L (25-150) Troponin T 0.142ug/L (0.0-0.011) Total Protein 7.0g/dL (6.4-8.4) Albumin 3.2g/dL (3.4-5.0) Lipase 9U/L (13-60) Magnesium Level 2.0mg/dL (1.6-2.6) Lactic Acid Level 1.5mmol/L (0.4-2.0) Test 06/16/16 14:55 06/17/16 05:48 06/18/16 07:40 06/19/16 05:35 Vancomycin Level Trough 22.0mcg/mL Hold Wolfe Top Tube Received (Received) White Blood Count 7.6th/mm3 (3.8-10.1) Red Blood Count 2.74mil/mm3 (4.40-5.80) Hemoglobin 8.7g/dL (13.8-17.2) Hematocrit 27.3% (41.0-50.0) Mean Corpuscular Volume 99.6fL (81-100) Mean Corpuscular Hemoglobin 31.8pg (27.0-35.0) Mean Corpuscular Hemoglobin Concent 31.9% (32.0-37.0) Red Cell Distribution Width 15.2% (12.3-15.4) Platelet Count 144bil/L (150-400) Neutrophils (%) (Auto) 65.8% (40-74) Lymphocytes (%) (Auto) 14.0% (14-46) Monocytes (%) (Auto) 12.0% (4-12) Eosinophils (%) (Auto) 3.8% (0-5) Basophils (%) (Auto) 2.0% (0-3) Sodium Level 130mEq/L (134-144) Chloride Level 88mEq/L (97-108) Carbon Dioxide Level 19mmol/L (18-29) Blood Urea Nitrogen 57mg/dL (6-24) Creatinine 11.67mg/dL (0.76-1.27) Estimat Glomerular Filtration Rate 5mL/min (>59) Glucose Level 171mg/dL (60-99) Calcium Level 9.1mg/dL (8.5-10.1) Test 06/19/16 12:50 Potassium Level 5.5mEq/L (3.5-5.2) Exam General: Alert, Oriented X3, Cooperative, No Acute Distress Lower Extremities: Left: Edema localized (foot, resolving in distal leg) Extremity warm (erythema in lateral foot, resolving in lateral leg) Lower Extremity Pulses: Doppler: Left Dorsalis Pedis Left Posterior Tibal Right Dorsalis Pedis Right Posterior Tibal Podiatry WOUND : Wound Location/Description Left foot post-debridement: 5cm x 3cm wound x1cm deep, 30% granular tissue, 30% soft eschar, rest capsular, no change since yesterday. Right foot no open ulcers. Chronic postulcerative callus plantar 1st IP joint. Assessment & Plan Problems: (1) Abscess of foot including toes Qualifiers: Laterality: left Qualified Code: L02.612 - Cutaneous abscess of left foot Plan: I irrigated the left foot wound with normal saline and dressed with wound gel to mobilize the eschar over the PIP joint, Aquacel AG, NS moistened gauze and dry Kerlix and tape. I will recheck it tomorrow and continue periodic wound debridement. It looks like the toe is viable. This could very well have been the starting point of his infection. New microbiology results show Staphylococcus. Duration of antibiotic for 6 weeks could ensure maintaining the viability of the 5th toe with local wound care. Patient may decide which Wound Clinic to choose, [facility] or [facility]. Status: Acute ICD Code: L02.619 (2) DM manif NEC type II Plan: Continue tight blood sugar control. Status: Acute ICD Code: E11.69 (3) End-stage renal disease Plan: Antibiotics as per Dr. Hager in conjunction with dialysis. Foot culture specimen results to follow. Patient scheduled for vascular procedure to address thrombosed graft. Status: Acute ICD Code: N18.6 Aurea Ellis DPMarjan Jun 19, 2016 18:31
--- NOTE | 2016-06-19 20:18 | CONS ---
[address] [address] CONSULTATION REPORT PATIENT: SUZANNE ROJAS : 1970 MR#: [id number] ADMIT: 06/14/2016 JOB ID: [id number] DATE OF SERVICE: 06/19/2016 REQUESTED BY: Dr. Wilkins. HISTORY OF PRESENT ILLNESS: The patient is a 46-year-old man with end-stage renal failure. He has been dialyzed through a left brachial basilic PTFE dialysis graft. He was admitted on June 14, 2016 with cough and fever. He has a known left foot ulcer. He was ultimately found to have methicillin-sensitive Staphylococcus aureus through blood cultures. He has been treated for that but also had his dialysis graft thrombosed. On June 15, 2016, Dr. Roslyn Perales performed graft thrombolysis and angioplasty. She had a moderate stenosis of the venous anastomosis. She had a focal high-grade stenosis of the graft arterial anastomosis. The completion angiogram showed that the graft was widely patent at the end of the procedure. But, he thrombosed again. I was asked to see him because of the graft thrombosis but also for the possibility that the graft is infected. He has not had any pain in his left arm. He has not had any erythema along the graft. He has had subsequent blood cultures after initiating antibiotic therapy that are negative. He has also been followed by Dr. Hager. He has also had an echocardiogram that shows no vegetation on his mitral aortic, tricuspid or pulmonic valves. REVIEW OF SYSTEMS: Otherwise negative. He denies any left hand pain. PHYSICAL EXAMINATION: BMI 38, temperature is 36.7, brachial blood pressure 125/53, pulse 68, respiratory rate 16, O2 sat on 2 L 98%. HEENT: Nonjaundiced. Neck: Trachea midline. Lungs: Clear. Cardiac exam: I do not appreciate any murmurs. The left upper extremity: No tenderness or erythema along the course of his dialysis graft. His left hand is warm. Left foot dressing in place. IMPRESSION: Bacteremia. I think it is going to be difficult to say that he does have a graft infection. He certainly has no localized symptoms, but when I explore him if I find that the graft is not incorporated, then that would be an obvious sign that he does have graft infection. But, because it is so superficial, I would expect that there would be some physical signs such as erythema along the graft but obviously that may not be the case. He does have an obvious source of bacteremia which is his open left foot ulcer. Regarding his dialysis graft thrombosis, I have scheduled him to go to the operating room tomorrow. It cannot happen until the afternoon. As I went in the room, he was eating solid food which means we would not be able to operate on him until midnight and I do not think that is the time to start this operation. I discussed this with the patient. He may need graft revision of either the arterial or venous anastomoses. And then again if there is any clinical signs of graft infection, the graft would be removed. I discussed this with the patient. He agrees with this plan and is on the schedule for tomorrow afternoon. CLAIRE
[2016-06-20] VITALS (21 sets, daily range): BP systolic 73–147; BP diastolic 19–67; PULSE 42–80; RESP 12–59; O2SAT 90–100
--- NOTE | 2016-06-20 05:22 | NUR ---
Bradycardia/Pain: Pt HR 30-40's during the night. C/o L flank pain x1, states pain is worse upon inhalation, medication administered; effective. Pt slept most of the night, placed on 2L O2 oxymask with cont pulse ox while sleeping; desated throughout the night but would bounce back above 92% fairly quickly. Pleasant and cooperative with care.
[2016-06-20] MEDS: Albuterol-Ipratropium 3 mL Inhalation Solution NEB SCH ×4 (06:00→21:00)
[2016-06-20 06:41] LABS: Phosphorus 8.1 mg/dL (2.5-4.9)
[2016-06-20] MEDS: Insulin LISPRO 300 Unit/3 mL Inj SUBQ SCH ×4 (08:00→19:34)
[2016-06-20] MEDS: CeFAZolin Inj 2 GM in IV Premix 1 EACH IV SCH (08:57)
--- NOTE | 2016-06-20 09:43 | PROG NOTE ---
[address] [address] PROGRESS NOTE PATIENT: SUZANNE ROJAS : 1970 MR#: [id number] ADMIT: 06/14/2016 JOB ID: [id number] DATE: 06/20/2016 SUBJECTIVE: The patient is seen in followup. I saw him yesterday afternoon in consultation. He had just eaten regular food. His left upper arm dialysis graft is thrombosed. Interventional Radiology did a thrombectomy and balloon angioplasty last week but it has re-thrombosed. He denies any pain in his left arm. He has had no tenderness over the graft. PHYSICAL EXAMINATION: Temperature is 36.5, brachial blood pressure 113/51, pulse 55, respiratory rate 20, O2 sat on room air 98%. Left arm: There is no tenderness, erythema, or fluctuance over his left upper arm dialysis graft, and there is no drainage from the incisions. LABORATORY RESULTS: White count 5.8, hematocrit is 51.6. Platelet count is 98,000. Potassium is 5.1, creatinine is 13, glucose 148. IMPRESSION: 1. Methicillin-sensitive Staphylococcus aureus sepsis probably from his left foot ulcer. 2. Thrombosed dialysis graft. PLAN: I have him on the schedule for exploration today and thrombectomy, possible revision of his graft. If he needs to be dialyzed sooner, will hopefully do it this morning. Again, I do not think, based on clinical grounds, that his dialysis graft is infected and unless it is not incorporated, then I do not plan to take it out. The patient is aware that risks include, but are not limited to, bleeding, infection, and rethrombosis. The patient seen for decision to operate.
--- NOTE | 2016-06-20 10:27 | PCM.PNMED ---
Subjective Date of Service Jun 20, 2016 Subjective Waqas states that he is feeling pretty well this morning. He is currently NPO status in preparation for surgery this afternoon with Dr Kareem Junior for his left upper extremity fistula which is currently not patent and thus he was not able to have hemodialysis yesterday. Exam Vital Signs Vital Sign - Last Date Time Temp Pulse Resp B/P Pulse Ox O2 Delivery O2 Flow Rate FiO2 06/20/16 09:32 36.9 74 18 147/51 100 Room Air 06/19/16 05:10 2.00 Intake and Output 06/19/16 06/19/16 06/20/16 Cumulative From/Thru 15:00 23:00 07:00 06/14/16 11:17 - 06/19/16 21:51 Intake Total 487 ml 474 ml 7421 ml Output Total 0 ml 0 ml 3250 ml Balance 487 ml 474 ml 4171 ml Intake Oral 487 ml 474 ml 5383 ml IV Total 2038 ml Output Urine Total 0 ml 0 ml 0 ml Stool Total 250 ml Ultrafiltrate 3000 ml # Bowel Movements 5 Exam General: Resting comfortably in bed upon my entering the room, sits up in bed unassisted and with ease. No acute distress, alert and oriented. HEENT: Normocephalic/atraumatic, pupils equal round react to light and accommodation, Anicteric sclera, mucus membranes moist Cardiovascular: Regular rhythm with a heart rate of approximately 60 during auscultation. No murmur, rub, or gallop. No JVD. Respiratory: Good inspiratory effort without wheezes rales or rhonchi. GI: Normoactive bowel tones. Soft, nontender and nondistended. Extremities: No clubbing cyanosis, moderate pitting (1-2+) edema distal to lower thigh, warm, left foot wrapped with dressing. Toes are pink with capillary refill of 2s bilaterally Psych: Mood appropriate, normal affect. Pleasant. IVs and Medications Medications Reviewed: Medications were reviewed in detail Lab and Diagnostics Result Diagram: 06/20/1635 06/20/1635 Microbiology Foot wound culture 06/17/16: Staph aureus Blood cultures 06/14/16: Staph aureus X-Rays, CTs and MRIs 06/15 Arteriogram FINDINGS: Initial fistulogram demonstrates occlusive thrombus within the central portion of the arteriovenous graft. Completion fistulogram demonstrates a widely patent graft without residual stenosis or intraluminal thrombus. IMPRESSION: 1. Status post angioplasty at the graft/artery anastomosis and the graft/vein anastomosis in addition to TPA administration and maceration of the residual nonocclusive thrombus as described above. Please note, the central portion of the outflow vein was not imaged. If there is clinical concern for central venous stenosis, fistulogram with attention directed to the central portion of the venous outflow is recommended. This finding was discussed with Dr. Corea at 3:55 PM on 06/15/16. Assessment & Plan Waqas is a 46yo [facility] male with ESRD on hemodialysis for 10 years who presented to [facility] with fever and was found to have MSSA bacteremia without an obvious source. He has ulcerations on the left foot which are currently thought to be the likely source of infection. MSSA bacteremia, present on admission - Initially had sepsis due to the bacteremia, sepsis now resolved - Blood cultures with growth of MSSA 4 of 4 bottles on 06/14/16 and 1 of 4 bottles on 06/15/16, no growth on more recent blood cultures - Left foot ulceration is the probable source of infection - EMILY ordered to be done tomorrow to evaluate for potential endocarditis - Cefazolin per Dr Hager's expertise - Received vancomycin, Zosyn, and Levaquin earlier in this hospitalization Hyperkalemia due to ESRD and inability to do hemodialysis at this time - Improved with active, ongoing management - Regular insulin with dextrose - Albuterol Nebulizer 10g - Monitor closely ESRD, chronically on hemodialysis without current access for HD - Clotted AV graft, status post angiogram with thrombolysis - Plan to go to the OR with Dr Junior this afternoon for treatment - Nephrology providing expertise - Continue sevelamer and monitor serum phosphate level Left foot ulceration in the setting of peripheral vascular disease -[place] PRN pain -Podiatry evaluated the patient with debridement performed and culture obtained which grew MSSA Bradycardia, unclear chronicity, ongoing - Evaluated by Dr Del Rosario (cardiology) and outpatient sleep study for evaluation of MABLE recommended - Avoid beta blockers and calcium channel blockers - Monitor Hypertension, chronic and stable -Continue to monitor Diabetes mellitus with complications including diabetic nephropathy and peripheral vascular disease - Home medications - Correctional scale insulin, hypoglycemic protocol - Aspirin 81 mg Bowel regimen PRN VTE Mechanical Devices: Intermittant Pneumatic CD Resuscitation Status: CPR: Attempt Resuscitation Attending Statement The patient was seen and examined together with Dr. Núñez on 06/20/2016 and I have agree with the assessment and plan of care as noted above. Alejandra Núñez DO Jun 20, 2016 10:14 Kodak Rodríguez MD Jun 20, 2016 15:12
--- NOTE | 2016-06-20 11:01 | PCM.HPANE ---
Patient Data Surgeon Admitting Provider:Lesa Mcadams MD Attending Provider:Lesa Mcadams MD Primary Care Physician:Jeni Jenkins Pa-C Other Provider: Reason for Visit FEVER FEVER Ht/WT & BMI Height (Feet): 6 Height (Inches): 0.00 Weight (Kilograms): 127.900 Body Mass Index 37.56 Allergies Coded Allergies: No Known Allergies (Verified , 06/14/16) Past Anesthesia History Anesthesia History: Denies:: Abnormal Airway, Anesthesia Reactions, Difficult Intubation, Fam Anesthesia Reaction Diabetes History Hx Diabetes?: Yes Type of Diabetes: Type II Glycemic Control: Insulin Dependent Current Bedside Blood Glucose: 148 MRSA MRSA: Yes (foot infection, HX of MRSA) Medications Reported Medications Acetaminophen 325 Mg [id number] Mg PO Q4H PRN For Pain 06/14/16 Calcium Acetate 667 Mg Capsule2 Each PO TIDWM 06/14/16 Insulin Human Lispro (HumaLOG U100 Insulin Vial)100 Unit/Ml Unit10 Units SQ ACHS 03/14/16 Cholecalciferol (Vitamin D3) (Vitamin D3)1,000 Unit Tab.chew1,000 Unit PO DAILY 03/09/16 Sevelamer Carbonate (Renvela)800 Mg Ervfzg911 Mg PO TID 03/09/16 Insulin Glargine (Lantus U100 Insulin Vial)100 Unit/Ml Vial30 Unit SUBQ QPM 03/09/16 Aspirin 81 Mg Uaxkbn31 Mg PO DAILY 03/09/16 Discontinued Reported Medications Cinacalcet HCl (Sensipar)90 Mg Ksvgqs64 Mg PO DAILY #30 TABLET Ref 0 03/09/16 Calcium Acetate (Phoslo)667 Mg [id number] Mg PO TIDWM 03/09/16 History History of ENT Problems?: No HEENT History: Denies:: Abnormal Airway Cataracts Difficult Intubation Dysphagia Hearing Problem Sinus Problem TMJ Hx of Heart Problems?: Yes Cardiovascular History: Positive for:: Edema Hypertension Irregular Heartbeat (bradycardia (with junctional tach 12/2015)) Denies:: Cardiac Surgery Chest Pain Congestive Heart Failure Heart Murmur Pacemaker Thrombophlebitis Hx of Respiratory Problem?: No Respiratory History: Denies:: Asthma COPD Chest Surgery Dyspnea Emphysema Hemoptysis Oxygen Administration Pneumonia Tuberculosis Use of C-PAP Machine (sleep study suggested- has not had yet) Hx Neurologic Problems?: No Neurological History: Denies:: Alzheimer's Disease CVA Dementia Dizziness Headaches Multiple Sclerosis Parkinson's Disease Seizures Hx of GI Problems?: Yes Gastrointestinal History: Positive for:: Gastroesphageal Reflux Denies:: Cirrhosis Diverticulitis Gastrointestinal Bleeding Heartburn Hepatitis Hiatal Hernia Rectal Bleeding Hx of Problems?: Yes Genitourinary History: Positive for:: HX of Hemodialysis ( Mon, Wed, Fri ) Denies:: Kidney Stones Urinary Tract Infection HX of Peritoneal Dialysis: Yes Male Hx: Denies:: Prostate Problems Scrotal Mass Testicular Surgery Skin History: Positive for:: History Skin Disorders? (right wound ulcer ) Denies:: Pressure Ulcers Hx Musculoskeletal Problems?: No Musculoskeletal History: Denies:: Back Injury Degenerative Joint Joint Replacement Musculoskeletal Trauma Systemic Lupus Hx of Psycho/Social Problems?: No Psycho Social History: Denies:: Anxiety Bipolar Disorder Hx Depression Suicide Attempt Hx Surgeries?: Yes (fistula, fistulogram) Hx Any Other Health Problems?: Yes Other History: Positive for:: Hospitalization (Fistulagram last year. Fistula placement 2010) Denies:: Cancer Endocrine Disease Thyroid Disease History Blood Transfusions: Positive for:: Accept Blood Products? Denies:: Blood Transfuse Reaction Blood Transfusions Hx Diabetes: YesBedside Blood Glucose: 148 Hx Alcohol Use: NoHx Substance Use: No Smoking Status: Former Smoker Have You Smoked inLast 12 mo: No Stop/Bang Treated for Sleep Apnea?: No Do You Have a CPAP Machine?: No S-Snoring: Do You Snore Loudly: Yes T-Tired: feel tired, fatigued: Yes O-Obsered: Observed not breath: No P-Blood Pressure: treated: No B- Body Mass Index > 35 kg/m2: Yes A- Age over 50: No N- Neck Large Circumference: No G- Gender Male: Yes MABLE Total Score: 5 Risk Assessment Category Category 1A: Patient has history of documented sleep apnea, and HAS NOT received any narcotic, sedative or anesthesia administration during this stay. Category 1B: Patient has history of documented sleep apnea, and HAS received any narcotic , sedative or anesthesia administration during this stay Category 2: Patient has SUSPECTED Obstructive Sleep Apnea, and HAS received any narcotic , sedative or anesthesia administration during this stay. Category 3: Patient has SUSPECTED Obstructive Sleep Apnea and HAS NOT received narcotic, sedative or anesthesia administration during this stay. Category 4: Outpatient in Procedural Areas with known sleep apnea or who screen positive for High Risk via the STOP/BANG questionnaire. Exam Exam Vital Signs Vital Signs Date Time Temp Pulse Resp B/P Pulse Ox O2 Delivery O2 Flow Rate FiO2 06/20/16 09:32 36.9 74 18 147/51 100 Room Air 06/20/16 08:25 55 20 98 Room Air 06/20/16 06:29 36.5 44 20 113/51 98 Room Air Meds/Labs/Diagnostics Admission Meds Current Medications Sodium Chloride 500 ml @ ud STK-MED ONCE .ROUTE Last administered on 06/19/16 16:04; Start 06/19/16 at 13:15; Stop 06/19/16 at 13:16; Status DC Cefazolin Sodium/ Dextrose/Premix (Ancef Inj/IV Premix) 50 ml @ 100 mls/hr ONCE ONCE IV Last administered on 06/19/16 16:39; Start 06/19/16 at 14:30; Stop 06/19/16 at 14:59; Status DC Sodium Polystyrene Sulfonate (Kayexalate Susp) 30 gm OT ONCE PO Last administered on 06/19/16 15:36; Start 06/19/16 at 15:00; Stop 06/19/16 at 15:01 ; Status DC Bedside Blood Glucose: 148 Labs Test 06/14/16 12:15 06/15/16 02:36 06/15/16 10:30 06/15/16 18:45 Hemoglobin A1c 6.5% (4.8-5.6) Procalcitonin 70.45ng/mL (See Comment) Troponin T 0.142ug/L (0.0-0.011) Lipase 9U/L (13-60) Magnesium Level 2.0mg/dL (1.6-2.6) Lactic Acid Level 1.5mmol/L (0.4-2.0) Test 06/16/16 14:55 06/17/16 05:48 06/20/16 05:35 Vancomycin Level Trough 22.0mcg/mL Hold Wolfe Top Tube Received (Received) White Blood Count 5.8th/mm3 (3.8-10.1) Red Blood Count 5.48mil/mm3 (4.40-5.80) Hemoglobin 18.0g/dL (13.8-17.2) Hematocrit 51.6% (41.0-50.0) Mean Corpuscular Volume 94.2fL (81-100) Mean Corpuscular Hemoglobin 32.8pg (27.0-35.0) Mean Corpuscular Hemoglobin Concent 34.9% (32.0-37.0) Red Cell Distribution Width 16.1% (12.3-15.4) Platelet Count 98bil/L (150-400) Neutrophils (%) (Auto) 65.8% (40-74) Lymphocytes (%) (Auto) 14.0% (14-46) Monocytes (%) (Auto) 11.3% (4-12) Eosinophils (%) (Auto) 5.0% (0-5) Basophils (%) (Auto) 1.2% (0-3) Sodium Level 134mEq/L (134-144) Potassium Level 5.1mEq/L (3.5-5.2) Chloride Level 91mEq/L (97-108) Carbon Dioxide Level 21mmol/L (18-29) Blood Urea Nitrogen 62mg/dL (6-24) Creatinine 13.33mg/dL (0.76-1.27) Estimat Glomerular Filtration Rate 4mL/min (>59) Glucose Level 148mg/dL (60-99) Calcium Level 8.8mg/dL (8.5-10.1) Phosphorus Level 8.1mg/dL (2.5-4.9) Total Bilirubin 0.3mg/dL (0.0-1.2) Aspartate Amino Transf (AST/SGOT) 14U/L (0-50) Alanine Aminotransferase (ALT/SGPT) 5U/L (0-44) Alkaline Phosphatase 78U/L (25-150) Total Protein 8.1g/dL (6.4-8.4) Albumin 3.0g/dL (3.4-5.0) Plan Impression Patient chart reviewed, patient interviewed and anesthestic plan with risks, benefits, and alternatives discussed, and informed consent obtained. NPO Status: 0500 CLEAR LIQUID SIPS Silver Santana MD Jun 20, 2016 11:01
[2016-06-20] MEDS ORDERED: Ketamine 10 mg/mL 20 mL Inj ONE (12:38)
[2016-06-20] MEDS ORDERED: Ondansetron 2 mg/mL 2 mL Inj ONE (12:46)
[2016-06-20] MEDS ORDERED: EPHEDrine/NS 5 mg/mL 5 mL Syringe ONE (12:46)
[2016-06-20] MEDS ORDERED: Phenylephrine/NS 100 mCg/mL 10 mL Syringe IVPUSH ONE (12:46)
--- NOTE | 2016-06-20 12:50 | NUR ---
off unit off unit to OR for thrombectomy of fistula. left in stretcher with transporter. no s/s of distress.
[2016-06-20] MEDS ORDERED: Bupivacaine-MPF 0.5% 30 mL Inj INFILTRATE ONE (14:52)
[2016-06-20] MEDS ORDERED: Heparin 1,000 Unit/mL 10 mL Inj IRRIGATION ONE (15:07)
[2016-06-20] MEDS ORDERED: Lactated Ringer's 1,000 ML IV SCH (15:08)
[2016-06-20] MEDS ORDERED: fentaNYL-PF 50 mCg/mL 2 mL Inj IVPUSH PRN (15:10)
[2016-06-20] MEDS ORDERED: HYDROmorphone 1 mg/mL Inj IVPUSH PRN (15:10)
[2016-06-20] MEDS ORDERED: Phenylephrine 10,000 mCg/mL Inj IVPUSH PRN (15:10)
[2016-06-20] MEDS ORDERED: MetoCLOpramide 5 mg/mL 2 mL Inj IVPUSH PRN (15:10)
[2016-06-20] MEDS ORDERED: Ondansetron 2 mg/mL 2 mL Inj IVPUSH PRN (15:10)
[2016-06-20] MEDS ORDERED: Dexamethasone 4 mg/mL Inj IVPUSH PRN (15:10)
[2016-06-20] MEDS ORDERED: EPHEDrine Sulfate 50 mg/mL Inj IVPUSH PRN (15:10)
[2016-06-20] MEDS: Atropine 1 mg/10 mL (Code) Syringe ONE ×2 (16:01→16:30)
--- NOTE | 2016-06-20 16:16 | PCM.PNMED ---
Subjective Date of Service Jun 20, 2016 Subjective c/o SOB overnight, now resolved. NPO for AVG revision today. K now controlled. Pt hopes to have HD today after surgery. Exam Vital Signs Vital Sign - Last Date Time Temp Pulse Resp B/P Pulse Ox O2 Delivery O2 Flow Rate FiO2 06/20/16 11:51 44 20 98 Room Air 06/20/16 09:32 36.9 147/51 06/19/16 05:10 2.00 Intake and Output 06/19/16 06/19/16 06/20/16 Cumulative From/Thru 15:00 23:00 07:00 06/14/16 11:17 - 06/19/16 21:51 Intake Total 487 ml 474 ml 7421 ml Output Total 0 ml 0 ml 3250 ml Balance 487 ml 474 ml 4171 ml Intake Oral 487 ml 474 ml 5383 ml IV Total 2038 ml Output Urine Total 0 ml 0 ml 0 ml Stool Total 250 ml Ultrafiltrate 3000 ml # Bowel Movements 5 Exam General: No acute distress, alert and oriented x3. HEENT: atraumatic, anicteric sclera, mucus membranes moist Cardiovascular: Regular rhythm, soft systolic murmur noted, no rub, or gallop. No JVD. Respiratory: equal BS, no wheezes rales or rhonchi. GI: Normoactive bowel tones. Soft, nontender and nondistended. Extremities: No clubbing cyanosis, dressing on left foot, trace edema. Left AVG with no thrill and bruit. Psych: Mood appropriate, normal affect. Pleasant. Lab and Diagnostics Result Diagram: 06/20/16 0535 06/20/16 0535 Microbiology Foot wound culture 06/17/16: Staph aureus Blood cultures 06/14/16: Staph aureus X-Rays, CTs and MRIs 06/15 Arteriogram FINDINGS: Initial fistulogram demonstrates occlusive thrombus within the central portion of the arteriovenous graft. Completion fistulogram demonstrates a widely patent graft without residual stenosis or intraluminal thrombus. IMPRESSION: 1. Status post angioplasty at the graft/artery anastomosis and the graft/vein anastomosis in addition to TPA administration and maceration of the residual nonocclusive thrombus as described above. Please note, the central portion of the outflow vein was not imaged. If there is clinical concern for central venous stenosis, fistulogram with attention directed to the central portion of the venous outflow is recommended. This finding was discussed with Dr. Corea at 3:55 PM on 06/15/16. Assessment & Plan 1. ESRD on HD. 2. Hyperkalemia. 3. Clotted AVG. 4. MSSA bacteremia secondary to foot ulcer vs infected AVG. 5. Left foot diabetic ulcer. 6. HTN with hypertensive nephrosclerosis. 7. DM with nephropathy. Plan: AVG revision then HD. follow ID rec. VTE Mechanical Devices: Intermittant Pneumatic CD Resuscitation Status: CPR: Attempt Resuscitation Casey Schrader MD Jun 20, 2016 16:16
--- NOTE | 2016-06-20 16:35 | OP ---
[address] [address] OPERATIVE REPORT PATIENT: SUZANNE ROJAS : 1970 MR#: [id number] ADMIT: 06/14/2016 JOB ID: [id number] DATE OF SURGERY: 06/20/2016 PREOPERATIVE DIAGNOSIS(ES): Thrombosed left brachiobasilic PTFE dialysis graft. POSTOPERATIVE DIAGNOSIS(ES): Patent dialysis graft. OPERATION: Exploration of left brachiobasilic dialysis graft with balloon thrombectomy. SURGEON: Kareem Junior MD. INDICATIONS: The patient is a 46-year-old man who three and a half months ago, I placed a left brachiobasilic PTFE dialysis graft. It has functioned well but last week it was thrombosed. She underwent thrombectomy by Dr. Roslyn Perales of Interventional Radiology. She also found a moderate venous stenosis that she angioplastied as well as the arterial anastomosis. I was contacted yesterday because the dialysis service felt it had rethrombosed and after discussing options with the patient it was elected to proceed with exploration. FINDINGS: After exposure of the venous end and proximal and distal control of the basilic vein, I opened the graft and there was immediately arterial flow. I did choose to pass a thrombectomy catheter through the arterial anastomosis. A very small amount of thrombus came out, but when going through the arterial anastomosis, there is no evidence of an anastomotic stricture. Also, there was no evidence of a stricture at the venous end by the use of a Debakey dilator. DESCRIPTION OF PROCEDURE: At the beginning and end of the operation, the SCOAP checklist was completed. He received an LMA anesthetic and using ChloraPrep, his left upper extremity was prepped and draped in usual fashion. His left upper medial arm incision was infiltrated with 0.5% plain bupivacaine. It was opened. It was ultimately extended cephalad. Using cautery, the subcutaneous tissue was divided. The graft could be palpated, and I exposed the graft just proximal to the venous anastomosis with sharp and blunt dissection. I then exposed the vein proximally and distally and controlled the vein with vessel loops. The graft was open as stated above. There was arterial flow in it. I did pass a 4-Ivorian embolectomy catheter proximally, and there was no evidence of an arterial stenosis. I got a little bit of thrombus out but not very much. Distally, there was no thrombus and the venous anastomosis was widely patent. I then closed the transverse the graft incision with 6-0 PTFE suture. I flushed the graft prior to completing the closure to ensure there still was flow. In the brief amount of time the graft was open, there was 120 cc blood loss as a testament to the flow in it. The subcutaneous tissue was closed with 3-0 Vicryl and skin with subcuticular 4-0 Vicryl. Estimated blood loss was 120 cc through the suction device. There are no apparent complications. There were no specimens. The final sponge, needle and instrument counts were announced as correct, and the patient was returned to the recovery in stable condition. Critical Assistance provided by SAVANNA Serrano
--- NOTE | 2016-06-20 16:55 | NUR ---
Arrival to Floor Patient came from OR directly to Dialysis room 243, but patient's room will be 240-2. Met with patient, vitals were stable in OR prior to transport. Will complete assessment once dialysis nurse is able to start dialysis. Received report from Ian DELGADO from [facility].
--- NOTE | 2016-06-20 18:09 | NUR ---
Unable to Complete Post-Op Assmt Unable to complete post op assessment at this time due to administrative analyst having issues getting patient set up for dialysis. I have attempted a couple of times, but administrative analyst has needed to continue set-up attempt, will continue to monitor and will complete post-op assessment if able, otherwise will make hay chopper aware.
--- NOTE | 2016-06-20 18:30 | NUR ---
Dialysis note: S/P thrombectomy of left upper arm AVG. Tried to access AVG but was unsuccessful due to problems with clots coming from the graft. Dr Wilkins at bedside and made aware. HD treatment canceled. Plan for temp catheter and dialysis in am.
[2016-06-21] VITALS (8 sets, daily range): BP systolic 88–166; BP diastolic 36–83; PULSE 37–85; RESP 14–18; O2SAT 93–100
[2016-06-21] MEDS: oxyCODONE-Acetamin 5-325 mg Tablet PO PRN ×2 (00:49→19:47)
--- NOTE | 2016-06-21 05:57 | NUR ---
Sleep Patient had requested earlier in the shift that I let him sleep uninterrupted except for vitals. Patient was observed hourly throughout the night. Patient rested conformability in bed without signs of distress. Patient was place on the continues pulse ox. Patient maintained saturations in the 90's and slept with 3LPM of oxygen via an oxymask.
[2016-06-21] MEDS: Albuterol-Ipratropium 3 mL Inhalation Solution NEB SCH ×4 (06:00→21:00)
[2016-06-21 06:36] LABS: BASOPHILS % (AUTO) 1.2 % (0-3); EOSINOPHILS % (AUTO) 4.4 % (0-5); MONOCYTES % (AUTO) 12.9 % (4-12); Mean Corpuscular Hemoglobin 31.8 pg (27.0-35.0); Mean Corpuscular Volume 99.2 fL (81-100); NEUTROPHILS % (AUTO) 62.6 % (40-74); Platelet Count 201 bil/L (150-400)
--- NOTE | 2016-06-21 07:09 | NUR ---
Critical Lab Contacted Dr. Rodríguez with the following cook page: Lab called with critical Creatinine level of 14.56. Please advise. Thank you. Airam MATA
--- NOTE | 2016-06-21 07:54 | NUR ---
EMILY Order Contacted [facility] Hospitalist with the following cook page: Patient has EMILY ordered, but EMILY tech stated database development project manager must be contacted by ordering MD due to last cardiology note stating no further intervention needed. Please advise. Thank you. Airam MATA
--- NOTE | 2016-06-21 08:01 | NUR ---
Return call from Dr. Rodríguez Received return call from Dr. Rodríguez, he asked that I contact his resident Dr. Núñez at [phone] regarding this patient. I paged Dr. Núñez at [phone] at this time.
--- NOTE | 2016-06-21 08:04 | NUR ---
Received return call from Resident Received return call from one of the residents, Dr. Denise?, made him aware of the critical lab, which he stated he was aware of, also let him know about the EMILY and the need to contact architect in training wind commissioning technician before the test can be done.
--- NOTE | 2016-06-21 08:33 | NUR ---
Possible Temp Dialysis Cath Called engineering lab technician to find out if patient is on the schedule today, he was not. Contacted Dr. Wilkins with the following cook page: Patient was unable to get dialysis 06/20/16 as planned after thrombectomy due to clot. Patient is requesting information on possible temp cath today, is anxious for dialysis. Please advise. Thank you. Airam MATA
--- NOTE | 2016-06-21 08:43 | NUR ---
Bedside Cath Placement Dr. Wilkins stated she is going to place the cath at bedside, asked me to call IV therapy for 20 cm femoral and ultrasound. Called and spoke with Janelle in IV therapy for this request.
--- NOTE | 2016-06-21 08:49 | PCM.ANEP1 ---
Post Anesthesia Phase 1 PACU Phase 1 Assessment Vital Signs Vital Signs Date Time Temp Pulse Resp B/P Pulse Ox O2 Delivery O2 Flow Rate FiO2 06/21/16 08:02 36.8 44 18 166/64 99 Room Air 06/21/16 05:58 37.0 42 16 147/60 100 Room Air 06/21/16 03:14 Supplement Oxygen Anesthetic Administered: GA Level of Alertness: Awake, talking THAKUR's with Equal Strength: Yes Pain: No Nausea or Vomiting: No Oxygen Delivery: Nasal Cannula Dermatome Level: Full Sensation Silver Santana MD Jun 21, 2016 08:49
--- NOTE | 2016-06-21 08:49 | PCM.ANEP2 ---
Post Anesthesia Evaluation ASA/CMS Post Anesthesia VS in Patient's Normal Range?: Yes Resp Stable; Airway Patent?: Yes CV Function & Hydration Stable: Yes Mental Status Recovered?: Yes Pain control Satisfactory?: Yes N/V Control Satisfactory?: Yes Silver Santana MD Jun 21, 2016 08:49
--- NOTE | 2016-06-21 09:02 | NUR ---
06/20/16 Lab Results Received call from Perri in the lab, she stated the lab results from 06/20/16 will be taken out of the computer, as the values were possible picking up a clot. She stated she will also be making a notation about the issue.
--- NOTE | 2016-06-21 09:09 | NUR ---
Plan for 1pm Tunnel Cath Dr. Wilkins at bedside, stated a tunnel cath will be done today at 1pm so patient can be dialyzed. She stated patient will need to remain NPO, except for meds, stated hold the Sevelamer and Calcium Acetate that needs to be taken with food. Dr. Wilkins also stated no need to cover BS of 144 with insulin.
[2016-06-21] MEDS: Insulin LISPRO 300 Unit/3 mL Inj SUBQ SCH ×4 (09:11→21:57)
--- NOTE | 2016-06-21 09:21 | NUR ---
Bandar Held Patient had a BM this morning, stated he did not want to take the Senna at this time due to not having an issue with constipation at this time.
--- NOTE | 2016-06-21 11:19 | PROG NOTE ---
[address] [address] PROGRESS NOTE PATIENT: SUZANNE ROJAS : 1970 MR#: [id number] ADMIT: 06/14/2016 JOB ID: [id number] DATE: 06/21/2016 INFECTIOUS DISEASE FOLLOWUP NOTE: REASON FOR FOLLOWUP: MSSA bacteremia secondary to infected left foot. INTERVAL HISTORY: Yesterday, I did not see the patient as she was in the OR for a prolonged period of time with Dr. Junior who was attempting to repair and revise his left upper extremity dialysis graft. Though initially it was felt that the graft was working again, the patient could not be dialyzed through it, and there are now plans being made to place a permanent hemodialysis percutaneous catheter. The patient has now been about five days without dialysis and though he is without obvious symptoms signs or symptoms of fluid overload he recognizes that that time is coming and he is anxious to get this done. The patient for his part states he has no fevers, chills, or sweats. He notes that his arm is a little sore where Dr. Junior worked on it yesterday but no significant pain remains. No significant shortness of breath is noted. No chest pain and no GI symptoms. He continues to not produce any urine, which of course is his baseline. His left foot is also improving by his report. PHYSICAL EXAMINATION: Reveals an afebrile gentleman temperature 36.8, pulse in the 40s, respiratory rate 18, blood pressure 166/64, O2 sat 99%. Examination of the eyes without conjunctivitis. Oral cavity negative. Lungs are surprisingly clear, with no rales at the bases at all. Cardiac tones without S3 or S4. Abdomen slightly distended, nontender. The left foot wound is dressed and I discussed it with Dr. Ellis this morning. LABORATORIES: Include white count 5000. Creatinine has now reached 14.56. LFTs are normal. Albumin 2.9. The culture from the foot grew Staph aureus which was MSSA, which was the same organism which was obtained from the blood. IMPRESSION: This unfortunate patient who has been on dialysis for about 10 years now has a nonfunctional left upper extremity graft. Dr. Junior and I are in agreement that we do not believe that this graft is infected either by its external appearance or by what it looked like yesterday during surgery. It seems clear that the high-grade MSSA bacteremia proceeded from his infected foot, which has now been thoroughly debrided by Podiatry. We still await a transesophageal echocardiogram to see if the patient has endocarditis and how long he may need IV antibiotics. RECOMMENDATIONS: 1. Will continue with cefazolin according to the 3-2-2 schedule with a plan to continue that for 4-6 weeks depending on his transesophageal echo. 2. Transesophageal echo is needed to determine length of therapy. 3. The patient is cleared for placement of a permanent dialysis catheter today if that is what is indicated as there is no longer any reason to suspect he is bacteremic. 4. I do not think that the left upper extremity graft is infected, but of course it does not work so it may be a moot point.
--- NOTE | 2016-06-21 11:32 | PCM.PNMED ---
Subjective Date of Service Jun 21, 2016 Subjective s/p exploration of left brachiobasilic dialysis graft with balloon thrombectomy. A thrombectomy catheter was passed through the arterial anastomosis with a very small amount of thrombus came out. No evidence of stenosis at both arterial and venous anastomosis. Arterial flow detected. Unfortunately, HD nursing staffs were unable to perform HD due to again poor blood flow and clots coming from the graft. IR has been contacted today. We will proceed with tunneled cath placement. Exam Vital Signs Vital Sign - Last Date Time Temp Pulse Resp B/P Pulse Ox O2 Delivery O2 Flow Rate FiO2 06/21/16 09:17 40 06/21/16 08:49 Nasal Cannula 06/21/16 08:02 36.8 18 166/64 99 06/20/16 16:45 4 Intake and Output 06/20/16 06/20/16 06/21/16 Cumulative From/Thru 15:00 23:00 07:00 06/14/16 11:17 - 06/21/16 06:12 Intake Total 540 ml 100 ml 0 ml 8061 ml Output Total 0 ml 120 ml 3370 ml Balance 540 ml -20 ml 0 ml 4691 ml Intake Oral 240 ml 0 ml 5623 ml IV Total 300 ml 100 ml 2438 ml Output Urine Total 0 ml 0 ml Stool Total 250 ml Ultrafiltrate 3000 ml Estimated Blood Loss 120 ml 120 ml # Bowel Movements 2 1 8 Exam Exam General: No acute distress, alert and oriented x3. HEENT: atraumatic, anicteric sclera, mucus membranes moist Cardiovascular: Regular rhythm, soft systolic murmur noted, no rub, or gallop. No JVD. Respiratory: equal BS, no wheezes rales or rhonchi. GI: Normoactive bowel tones. Soft, nontender and nondistended. Extremities: No clubbing cyanosis, dressing on left foot, trace edema. left AVG no good thrill. Psych: Mood appropriate, normal affect. Pleasant. Lab and Diagnostics Result Diagram: 06/21/16 0600 06/21/16 06 Microbiology Foot wound culture 06/17/16: Staph aureus Blood cultures 06/14/16: Staph aureus X-Rays, CTs and MRIs 06/15 Arteriogram FINDINGS: Initial fistulogram demonstrates occlusive thrombus within the central portion of the arteriovenous graft. Completion fistulogram demonstrates a widely patent graft without residual stenosis or intraluminal thrombus. IMPRESSION: 1. Status post angioplasty at the graft/artery anastomosis and the graft/vein anastomosis in addition to TPA administration and maceration of the residual nonocclusive thrombus as described above. Please note, the central portion of the outflow vein was not imaged. If there is clinical concern for central venous stenosis, fistulogram with attention directed to the central portion of the venous outflow is recommended. This finding was discussed with Dr. Corea at 3:55 PM on 06/15/16. Assessment & Plan 1. ESRD on HD. due to lack of HD access. He has not been dialyzed for 5 days. 2. Malfunctioning AVG s/p exploration of left brachiobasilic dialysis graft with balloon thrombectomy. A thrombectomy catheter was passed through the arterial anastomosis with a very small amount of thrombus came out. No evidence of stenosis at both arterial and venous anastomosis. Arterial flow detected. - still with poor function. 3. MSSA bacteremia secondary to foot ulcer. 4. Left foot diabetic ulcer. 5. HTN with hypertensive nephrosclerosis. 6. DM with nephropathy. Plan: Tunneled cath placement by IR today. HD afterwards. He will likely need a new AVG/AVF placement eventually once MSSA bacteremia is completely treated. will contact his primary corn grower, Dr. Montes. Pt will need IV Ancef 2 gm on Sun-Sun and 3 gm on Sun. Next HD on Sunday. VTE Mechanical Devices: Intermittant Pneumatic CD Resuscitation Status: CPR: Attempt Resuscitation Casey Schrader MD Jun 21, 2016 11:21
--- NOTE | 2016-06-21 11:59 | DRSVH ---
PROCEDURE: US DUPLEX DOPPLER OF DIALYSIS SHUNT ([id number]) INDICATIONS: Check blood flow in AVG left arm TECHNIQUE: Color and pulse Doppler interrogation was performed of the upper extremity arteriovenous fistula, wit h image documentation. COMPARISON: [facility], XA, CV DECLOTTING MECHANICAL (PNL), 06/15/2016, 14:15. FINDINGS: There is complete thrombosis involving the venous limb involving the left brachiobasilic synthetic gr aft. Normal flow visualized within the adjacent left brachial artery with triphasic flow as well as normal flow within the proximal radial and ulnar arteries. Normal flow also visualized within the ba silic vein distal to the graft/venous anastomosis. IMPRESSION: Occlusive thrombosis involving the venous limb of the left brachiobasilic synthetic graft . Dictated by: Daniel Decker [facility] Interpreted: Miguelangel Pascal MD on 06/21/2016 at 11:44 Transcribed by: BENNY on 06/21/2016 at 11:59 Approved by: Miguelangel Pascal M.D. on 06/21/2016 at 17:34
[2016-06-21] MEDS ORDERED: Heparin 5,000 Units/500 mL NS Premix IV ONE (12:13)
[2016-06-21] MEDS ORDERED: Heparin 1,000 Unit/mL 10 mL Inj ONE (12:14)
[2016-06-21] MEDS ORDERED: 0.9% Sodium Chloride 1,000 ML ONE (12:14)
--- NOTE | 2016-06-21 12:55 | NUR ---
Off Unit Patient transported off unit to have tunnel cath placed. Patient was taken even though he only had 1 IV access site; IV therapy attempted 2nd IV access as requested by slab lifting supervisor, but was unable to so they were able to take him with only one.
[2016-06-21] MEDS ORDERED: fentaNYL-PF 50 mCg/mL 2 mL Inj ONE (13:03)
--- NOTE | 2016-06-21 14:04 | NUR ---
Return to Floor/Now in Dialysis Patient returned from getting his tunnel cath, he had 2 Versed and 1 Fentanyl, he is now in dialysis on this floor.
--- NOTE | 2016-06-21 14:18 | NUR ---
Dr. Rodríguez at bedside Dr. Rodríguez stated patient will remain another night, stated his resident is working on the EMILY, but this test will not happen today.
--- NOTE | 2016-06-21 14:42 | DRSVH ---
PROCEDURE: CV TUNNEL CATH PLCMNT 1. Sonographic guidance for venous access. 2. Conscious sedation for 39 minutes. 3. Left internal jugular vein tunneled hemodialysis catheter placement. 4. Fluoroscopic guidance for catheter placement. INDICATIONS: ESRD TECHNIQUE: The indications, alternatives, benefits, risks, and complications of the procedure were e xplained to the patient and any family members present. Informed written consent was obtained and pl aced in the chart. The patient was brought to the angiography suite, and conscious sedation was admi nistered intravenously by nursing home staff, while continuous cardiorespiratory monitoring was pe rformed. Maximum sterile barrier technique was employed per standard protocol, including hand hygiene, cap, ma sk, sterile gown and gloves, and 2% chlorhexidine. Sterile ultrasound probe cover was also utilized. 1% lidocaine was used for local anaesthesia. Under sonographic guidance, the left internal jugular v ein was accessed with a Micropuncture set. An 0.035J wire was advanced into the vena cava. Subcutan eous tunnel was created within the left anterior chest wall, through which a 14.5 Thai double lumen tunneled hemodialysis catheter was advanced. Following sequential venotomy tract dilation, the cath eter was advanced through the peel-away sheath and the tip was placed at the cavoatrial junction. Pe el-away sheath was removed. Adequate flow was obtained through both lumens of the catheter. The jaime otomy was closed with Vicryl, and the catheter was fastened to the skin with Ticron. Both lumens wer e flushed with heparinized saline. The patient tolerated the procedure without difficulty and was in stable condition at the conclusion of the procedure. COMPARISON: None. FINDINGS: The left internal jugular vein is patent by ultrasound. Fluoroscopic imaging demonstrates tip of the catheter at the cavoatrial junction. IMPRESSION: Left internal jugular vein tunneled hemodialysis catheter placement using sonographic and fluoroscopi c guidance. Dictated by: Lobo New M.D. on 06/21/2016 at 14:40 Approved by: Lobo New M.D. on 06/21/2016 at 14:41
--- NOTE | 2016-06-21 16:39 | NUR ---
EMILY follow-up/Diet Status Contacted Dr. Núñez with the following cook page: Following up on EMILY, need to know if patient needs to be NPO at midnight to pass on to short goods drier. Please advise. Thank you. Airam MATA
--- NOTE | 2016-06-21 16:58 | NUR ---
Received return call from Dr. Wilton Núñez returned my call, she stated patient can eat dinner, but will need to be NPO at midnight because they are going to try to get the EMILY done tomorrow, she will have to speak with the on-call milk runner tomorrow about the study, but that is the plan at this time.
--- NOTE | 2016-06-21 17:13 | PCM.PNMED ---
Subjective Date of Service Jun 21, 2016 Lencho Alan has had dialysis today via a tunnel catheter than was placed earlier today. 3L of fluid were removed with dialysis today. Recall that he went to the OR yesterday with Dr Junior for removal of thrombus from his graft and the graft was patent at the close of the procedure, however, it was thrombosed again this morning. Exam Vital Signs Vital Sign - Last Date Time Temp Pulse Resp B/P Pulse Ox O2 Delivery O2 Flow Rate FiO2 06/21/16 14:20 37 06/21/16 12:49 36.7 18 102/36 97 Room Air 06/20/16 16:45 4 Intake and Output 06/20/16 06/20/16 06/21/16 Cumulative From/Thru 15:00 23:00 07:00 06/14/16 11:17 - 06/21/16 06:12 Intake Total 540 ml 100 ml 0 ml 8061 ml Output Total 0 ml 120 ml 3370 ml Balance 540 ml -20 ml 0 ml 4691 ml Intake Oral 240 ml 0 ml 5623 ml IV Total 300 ml 100 ml 2438 ml Output Urine Total 0 ml 0 ml Stool Total 250 ml Ultrafiltrate 3000 ml Estimated Blood Loss 120 ml 120 ml # Bowel Movements 2 1 8 Exam General: Sitting up in bed upon my entering the room. No acute distress. Awake, alert and oriented. HEENT: Normocephalic/atraumatic, pupils equal round react to light and accommodation, Anicteric sclera, mucus membranes moist Cardiovascular: Regular rhythm. Bradycardic at 45bpm during auscultation. No murmur, rub, or gallop. No JVD. Respiratory: Good inspiratory effort without wheezes rales or rhonchi. GI: Normoactive bowel tones. Soft, nontender and nondistended. Extremities: No clubbing or cyanosis bilaterally.Mild-moderate pitting (1+) edema distal to lower thigh, warm, left foot wrapped with dressing. Toes are pink with capillary refill of 2s bilaterally Psych: Mood appropriate, normal affect. Pleasant. Lab and Diagnostics Result Diagram: 06/21/16 0600 06/21/16 0600 Microbiology Foot wound culture 06/17/16: Staph aureus Blood cultures 06/14/16: Staph aureus Assessment & Plan Waqas is a 46yo [facility] male with ESRD on hemodialysis for 10+ years who presented to [facility] with fever and was found to have MSSA bacteremia without an obvious source. He has ulcerations on the left foot which are currently thought to be the likely source of infection though a EMILY has not been done to more thoroughly evaluate for potential endocarditis. 1. MSSA bacteremia, present on admission - Initially had sepsis due to the bacteremia, sepsis now resolved - Blood cultures with growth of MSSA 4 of 4 bottles on 06/14/16 and 1 of 4 bottles on 06/15/16, no growth on more recent blood cultures - Left foot ulceration is the probable source of infection - EMILY ordered to be done tomorrow to evaluate for potential endocarditis - NPO after midnight in anticipation of the EMILY - Cefazolin per Dr Hager's expertise - Received vancomycin, Zosyn, and Levaquin earlier in this hospitalization 2. Hyperkalemia due to ESRD and inability to do dialysis for 2 days, now having dialysis - Anticipate that this should be resolved with dialysis - Monitor 3. ESRD, chronically on hemodialysis with thrombus of his left upper extremity graft - Tunnel catheter has been placed this morning and hemodialysis performed - Nephrology providing expertise - Continue sevelamer and monitor serum phosphate level per nephrology - Monitor his phosphorus level 4. Left foot ulceration in the setting of peripheral vascular disease - [place] PRN pain - Podiatry evaluated the patient with debridement performed and culture obtained which grew MSSA - Dressing changes to the foot; will need outpatient follow up 5. Bradycardia, unclear chronicity, ongoing - Has been bradycardic since admission - Evaluated by Dr Del Rosario (cardiology) and outpatient sleep study for evaluation of MABLE recommended - Avoiding beta blockers and calcium channel blockers - Monitoring 6. Hypertension, chronic and stable -Continue to monitor 7. Diabetes mellitus with complications including diabetic nephropathy and peripheral vascular disease - Home medications - Correctional scale insulin, hypoglycemic protocol - Aspirin 81 mg 8. Chronic normocytic anemia secondary to ESRD, stable - Monitoring Bowel regimen PRN VTE Mechanical Devices: Intermittant Pneumatic CD Resuscitation Status: CPR: Attempt Resuscitation Attending Statement Patient was seen and evaluated with Dr. Núñez on 06/21/2016. I agree with the findings, assessment and plan of care as noted above. Alejandra Núñez DO Jun 21, 2016 17:13 Kodak Rodríguez MD Jun 22, 2016 12:57
--- NOTE | 2016-06-21 18:35 | NUR ---
Dialysis note: S/P catheter placement. 4 hrs tx. 3000 ml net UF. Left catheter, dsg changed, sutures intact. Pls see DTR for VS details. Qb 350-500. Heparin given. O2 @ 2L via NC on. Tolerated tx, slept at intervals. Catheter flushed, heparin dwelled and secured. Report given to Airam Mark RN. Transferred back to patient's room in stable condition.
--- NOTE | 2016-06-21 18:39 | NUR ---
Return from Dialysis Patient is done with dialysis. davide Castaneda RN report 3L removed, current BP 160/76 and HR 57. Transported patient back to room via bed. Will obtain food for patient from the kitchen in order to give Renvela and Phoslo.
--- NOTE | 2016-06-21 22:00 | NUR ---
Pain Pt c/o generalized chest pain(12/04) related to recent placement of tunnel catheter for dialysis Given one percocet. Pt states his pain is now minimal. Resting comfortably.
--- NOTE | 2016-06-21 22:04 | PCM.PNPOD ---
Subjective Date of Service: Jun 21, 2016 Visit Information: Reason for Visit FEVER Surgery/Surgery Date Post-Op Day # Date of Admission: Jun 14, 2016 at 17:00 Hospital Day # Postop General: No Complaints Gastrointestinal: Normal Bowel Movement Pain Management: No or Minimal Pain Neurological: Numbness Postop Activity: Ambulating Independently Objective Vital Sign - Last Date Time Temp Pulse Resp B/P Pulse Ox O2 Delivery O2 Flow Rate FiO2 06/21/16 21:05 37.0 46 18 123/83 95 Room Air 06/20/16 16:45 4 Intake and Output 06/20/16 06/20/16 06/21/16 Cumulative From/Thru 15:00 23:00 07:00 06/14/16 11:17 - 06/21/16 06:12 Intake Total 540 ml 100 ml 0 ml 8061 ml Output Total 0 ml 120 ml 3370 ml Balance 540 ml -20 ml 0 ml 4691 ml Intake Oral 240 ml 0 ml 5623 ml IV Total 300 ml 100 ml 2438 ml Output Urine Total 0 ml 0 ml Stool Total 250 ml Ultrafiltrate 3000 ml Estimated Blood Loss 120 ml 120 ml # Bowel Movements 2 1 8 Result Diagram: 06/21/16 0600 06/21/16 0600 Lab Test 06/14/16 12:15 06/15/16 02:36 06/15/16 10:30 06/15/16 18:45 Hemoglobin A1c 6.5% (4.8-5.6) Procalcitonin 70.45ng/mL (See Comment) Troponin T 0.142ug/L (0.0-0.011) Lipase 9U/L (13-60) Magnesium Level 2.0mg/dL (1.6-2.6) Lactic Acid Level 1.5mmol/L (0.4-2.0) Test 06/16/16 14:55 06/17/16 05:48 06/20/16 05:35 06/21/16 06:00 Vancomycin Level Trough 22.0mcg/mL Hold Wolfe Top Tube Received (Received) Phosphorus Level 8.1mg/dL (2.5-4.9) White Blood Count 5.0th/mm3 (3.8-10.1) Red Blood Count 2.42mil/mm3 (4.40-5.80) Hemoglobin 7.7g/dL (13.8-17.2) Hematocrit 24.0% (41.0-50.0) Mean Corpuscular Volume 99.2fL (81-100) Mean Corpuscular Hemoglobin 31.8pg (27.0-35.0) Mean Corpuscular Hemoglobin Concent 32.1% (32.0-37.0) Red Cell Distribution Width 15.7% (12.3-15.4) Platelet Count 201bil/L (150-400) Neutrophils (%) (Auto) 62.6% (40-74) Lymphocytes (%) (Auto) 17.5% (14-46) Monocytes (%) (Auto) 12.9% (4-12) Eosinophils (%) (Auto) 4.4% (0-5) Basophils (%) (Auto) 1.2% (0-3) Sodium Level 132mEq/L (134-144) Potassium Level 5.6mEq/L (3.5-5.2) Chloride Level 89mEq/L (97-108) Carbon Dioxide Level 19mmol/L (18-29) Blood Urea Nitrogen 71mg/dL (6-24) Creatinine 14.56mg/dL (0.76-1.27) Estimat Glomerular Filtration Rate 4mL/min (>59) Glucose Level 136mg/dL (60-99) Calcium Level 8.8mg/dL (8.5-10.1) Total Bilirubin 0.3mg/dL (0.0-1.2) Aspartate Amino Transf (AST/SGOT) 14U/L (0-50) Alanine Aminotransferase (ALT/SGPT) 5U/L (0-44) Alkaline Phosphatase 79U/L (25-150) Total Protein 7.8g/dL (6.4-8.4) Albumin 2.9g/dL (3.4-5.0) Exam General: Alert, Oriented X3, Cooperative, No Acute Distress Lower Extremities: Left: Edema localized (foot, resolving in distal leg) Extremity warm (erythema in lateral foot, resolving in lateral leg) Lower Extremity Pulses: Doppler: Left Dorsalis Pedis Left Posterior Tibal Right Dorsalis Pedis Right Posterior Tibal Postop Sensory Motor: Distal Motor Intact Podiatry WOUND : Wound Location/Description Left foot 5th toe wound: 5cm x 3cm wound x1cm deep, 30% granular tissue, 30% soft eschar, rest capsular, fibrin building up. Right foot no open ulcers. Chronic postulcerative callus plantar 1st IP joint. Assessment & Plan Problems: (1) Abscess of foot including toes Qualifiers: Laterality: left Qualified Code: L02.612 - Cutaneous abscess of left foot Plan: I irrigated the left foot wound with normal saline and dressed with wound gel to mobilize the eschar over the PIP joint, NS moistened gauze and dry Kerlix and tape. I will recheck it tomorrow and plan on more wound debridement. It looks like the toe is viable, but 5th PIP joint will need to be excised. New microbiology results show MSSA.. Duration of antibiotic for 6 weeks could ensure maintaining the viability of the 5th toe with local wound care. Patient may decide which Wound Clinic to choose, [facility] or [facility]. Status: Acute ICD Code: L02.619 (2) DM manif NEC type II Plan: Continue tight blood sugar control. Status: Acute ICD Code: E11.69 (3) End-stage renal disease Plan: Antibiotics as per Dr. Hager in conjunction with dialysis. Patient scheduled for new dialysis port, quite anxious about that. Status: Acute ICD Code: N18.6 Aurea Ellis DPMarjan Jun 21, 2016 22:04
[2016-06-22] VITALS (16 sets, daily range): BP systolic 93–169; BP diastolic 39–89; PULSE 45–76; RESP 16–24; O2SAT 92–100
[2016-06-22] MEDS: oxyCODONE-Acetamin 5-325 mg Tablet PO PRN ×2 (02:13→21:43)
[2016-06-22 07:55] LABS: BASOPHILS % (AUTO) 1.2 % (0-3); EOSINOPHILS % (AUTO) 5.5 % (0-5); MONOCYTES % (AUTO) 10.4 % (4-12); Mean Corpuscular Hemoglobin 31.4 pg (27.0-35.0); Mean Corpuscular Volume 100.4 fL (81-100); Platelet Count 218 bil/L (150-400)
[2016-06-22] MEDS ORDERED: 0.9% Sodium Chloride 250 ML IV SCH (08:00)
[2016-06-22] MEDS: Insulin LISPRO 300 Unit/3 mL Inj SUBQ SCH ×4 (08:00→21:43)
--- NOTE | 2016-06-22 08:16 | NUR ---
Follow-up on EMILY Blue Team/Dr. Núñez no longer on patient's case, it is now Red Team. Following up on EMILY, found that the EMILY is still not on the schedule for today. Contacted Dr. Sherwood with the following cook page: Patient has EMILY ordered to determine if endocarditis present and determine IV antibiotic course, not yet scheduled, need MD to contact on-call direct mail coordinator. Thank you. Airam [facility] [place] ext [phone]
--- NOTE | 2016-06-22 08:26 | NUR ---
Critical Creatinine Received call from lab, stated critical lab value for Creatinine of 8.57, did not contact MD at this time due to this value down from 14.56 on 06/21/16.
[2016-06-22] MEDS: CeFAZolin Inj 2 GM in IV Premix 1 EACH IV SCH (08:35)
[2016-06-22] MEDS ORDERED: fentaNYL-PF 50 mCg/mL 2 mL Inj ONE (09:22)
--- NOTE | 2016-06-22 10:50 | NUR ---
Morning Rounds Staffed patient's case with utilization RN, social work and case management. Dr. Sherwood was not available at this time. No order for discharge at this time, as EMILY is pending to assist with determining length of antibiotic course.
--- NOTE | 2016-06-22 11:02 | NUR ---
EMILY scheduled for 1pm Shaneka with [facility] informed me the EMILY will be done at 1pm today, stated we need to have patient down in [facility] between 1200 and 1230, also need to clarify with [facility] nurses that patient needs to go to dialysis as soon as possible after the procedure.
--- NOTE | 2016-06-22 11:07 | NUR ---
1 Unit of Blood with Dialysis Spoke with Tonya the [employer] french teacher regarding the 1 unit of Blood ordered by Dr. Wilkins, she stated she could give the blood with dialysis, just needed to know how long to run the blood. Spoke with Dr. Wilkins, as she was on the unit, she stated the 1 unit of blood could wait until patient is back from [facility] for dialysis, she stated the unit could be run slow over 4 hours while he is getting dialysis.
--- NOTE | 2016-06-22 11:13 | PCM.PNMED ---
Subjective Date of Service Jun 22, 2016 Subjective Pending for EMILY today. HD yesterday without complication, Hb 8.1 today. Exam Vital Signs Vital Sign - Last Date Time Temp Pulse Resp B/P Pulse Ox O2 Delivery O2 Flow Rate FiO2 06/22/16 08:05 37.0 48 18 127/53 99 Room Air 06/22/16 04:23 2.00 Intake and Output 06/21/16 06/21/16 06/22/16 Cumulative From/Thru 15:00 23:00 07:00 06/14/16 11:17 - 06/22/16 06:25 Intake Total 0 ml 200 ml 8261 ml Output Total 3000 ml 0 ml 0 ml 6370 ml Balance -3000 ml 0 ml 200 ml 1891 ml Intake Oral 0 ml 200 ml 5823 ml IV Total 2438 ml Output Urine Total 0 ml 0 ml 0 ml Stool Total 250 ml Ultrafiltrate 3000 ml 6000 ml Estimated Blood Loss 120 ml # Bowel Movements 8 Exam General: No acute distress, alert and oriented x3. HEENT: atraumatic, anicteric sclera, mucus membranes moist Cardiovascular: Regular rhythm, soft systolic murmur noted, no rub, or gallop. No JVD. Respiratory: equal BS, no wheezes rales or rhonchi. GI: Normoactive bowel tones. Soft, nontender and nondistended. Extremities: No clubbing cyanosis, dressing on left foot, trace edema. left AVG no good thrill. Psych: Mood appropriate, normal affect. Pleasant. Skin: left tunneled cath in place, dry, clean and intact. Lab and Diagnostics Result Diagram: 06/22/16 0730 06/22/16 0730 Microbiology Foot wound culture 06/17/16: Staph aureus Blood cultures 06/14/16: Staph aureus Assessment & Plan 1. ESRD on HD. 2. Malfunctioning AVG. s/p exploration of left brachiobasilic dialysis graft with balloon thrombectomy. A thrombectomy catheter was passed through the arterial anastomosis with a very small amount of thrombus came out. No evidence of stenosis at both arterial and venous anastomosis. Arterial flow detected. - still with poor function. s/p left tunneled cath placement ion 06/21/16. 3. MSSA bacteremia secondary to left foot ulcers/osteomyelitis. pending EMILY to rule out IE. 4. HTN with hypertensive nephrosclerosis. 5. DM with nephropathy. Plan: He will likely need a new AVG/AVF placement eventually once MSSA bacteremia is completely treated. will contact his primary unemployment inspector, Dr. Montes. Pt will need IV Ancef 2 gm on Mon-Wed and 3 gm on Fri to complete for 6 weeks. Next HD today with blood transfusion 1 unit. EMILY today. VTE Mechanical Devices: Intermittant Pneumatic CD Resuscitation Status: CPR: Attempt Resuscitation Casey Schrader MD Jun 22, 2016 11:13
--- NOTE | 2016-06-22 12:12 | PROG NOTE ---
[address] [address] PROGRESS NOTE PATIENT: SUZANNE ROJAS : 1970 MR#: [id number] ADMIT: 06/14/2016 JOB ID: [id number] DATE: 06/22/2016 INFECTIOUS DISEASE FOLLOWUP NOTE: REASON FOR FOLLOWUP: MSSA high-grade bacteremia with osteomyelitis. INTERVAL HISTORY: Yesterday, I discussed this case with the car detailer. It is her impression that the patient probably does have osteomyelitis and we both agree that this was the likely source of his MSSA bacteremia rather than endocarditis or infection of the left upper extremity nonfunctional dialysis graft. The patient tells me this morning he is feeling better. No fevers, chills, or sweats. He has no pain at the site of his left graft and he has no pain in his left foot where he probably has osteo, but this is not remarkable as his feet are insensate. He has no new cough, shortness of breath, chest pain, or nausea or vomiting. A percutaneous dialysis line has been inserted in his left upper chest and he is doing quite well with that. PHYSICAL EXAMINATION: Reveals an afebrile gentleman, temperature 37 degrees, pulse 48, respiratory rate 18, blood pressure 127/53. He is saturating well on room air. He is awake, alert, and conversational. The new left dialysis line in his upper chest appears benign. His left upper extremity graft likewise appears benign at this point, though it is nonfunctional. Lungs fairly clear. Abdomen benign. No new cardiac murmurs are noted. LABORATORIES: Include a white count of 4300, platelet count 218,000, creatinine 8.57, and he is being dialyzed every day now because he had missed some days. Micro studies include Staph aureus growing from the foot. He also grew Staph aureus from the blood but followup cultures were negative. IMPRESSION: This patient is doing well at this point with respect to his high-grade MSSA bacteremia, as well as probable left foot MSSA osteomyelitis. This case was discussed today with Dr. Schrader in Nephrology and discussed yesterday with Dr. Ellis of Podiatry. RECOMMENDATIONS: 1. Will continue with Ancef in the 2-2-3 configuration for treatment for a total of six weeks. This six weeks of therapy will extend through July 28 to finish six full weeks of therapy by my calculations, including 11 days in May, 28 days in June, and the first three days of July, so the last day of therapy would be July 28. 2. The patient should have a weekly CBC done during this very long course of Ancef but otherwise no other labs will need to be followed. 3. I will leave the monitoring of these labs to the Nephrology team as he will be receiving his antibiotics through the Dialysis Center at the end of each dialysis. 4. I will see this patient again one more time tomorrow to make sure he is stable for possible discharge.
--- NOTE | 2016-06-22 12:23 | NUR ---
Transfer to [facility] Transported patient to [facility] via patient bed, as patient will have dialysis after the procedure. Gave handoff report to YURI Rayo. Addendum: 06/22/16 at 1307 by KAI CURRIE RN Report actually given to YURI Azevedo, not Perri.
--- NOTE | 2016-06-22 12:30 | NUR ---
RECEIVED IN YURI. REPORT GIVEN SEE FLOW SHEET
[2016-06-22] MEDS ORDERED: Lactated Ringer's 1,000 ML IV ONE (12:43)
--- NOTE | 2016-06-22 12:51 | NUR ---
NUTRITION ASSESSMENT: ASSESS: Pt is a 46yo M admitted for fever and was found to have MSSA bacteremia. Podiatry is following for ulcerations on L foot. Pt is to have EMILY today. He is on chronic HD. Pt has been NPOx2 days for procedures. PO prior to NPO was 100% on Heart Healthy/Diabetic diet. PMHX: ESRD on HD, PVD, HTN, T2DM LABS: Reviewed. K 5.8, Cl 95, Bun 35, Equities Trader 8.57, Glu 126, Alb 2.9 MEDS: Reviewed. PhosLo, senna, Vit D, GI: BMx1 06/21 SKIN: João 19, ulcerations on L foot CURRENT WTS: 125.2kg, BMI 37.4kg/m2 admit wt 124.8kg, IBW 80.9kg DIET: NPO for EMILY EST. NEEDS: Dialysis Kcals: 2500-2750kcal/day (20-22kcal/kg) Pro: 95-120g/day (1.2-1.5g/kg IBW) NUTRITION DIAGNOSIS: 1.) Increased nutrient needs related to increased demand for nutrients as evidence by pt on chronic dialysis for ESRD NUTRITION INTERVENTION: 1.) Recommend advance diet when medically appropriate 2.) Pt may benefit from being on Renal diet as he has ESRD. Will monitor PO once diet is advanced for possible need for supplements MONITOR / EVAL: NPO, diet advc, PO, wt, labs, diet order, POC, nutrition status. Will continue to monitor per moderate nutrition risk guidelines
--- NOTE | 2016-06-22 13:00 | NUR ---
DOCTORS HERE, ECHO HERE. PROCEDURE STARTED. SEE FLOW SHEETS
--- NOTE | 2016-06-22 13:09 | PCM.HPANE ---
Patient Data Date of Service: Jun 22, 2016 (9270) Surgeon Admitting Provider:Lesa Mcadams MD Attending Provider:Lesa Mcadams MD Primary Care Physician:Jeni Jenkins Pa-C Other Provider: Reason for Visit FEVER FEVER Ht/WT & BMI Height (Feet): 6 Height (Inches): 0.00 Weight (Kilograms): 125.200 Body Mass Index 37.56 Allergies Coded Allergies: No Known Allergies (Verified , 06/14/16) Past Anesthesia History Anesthesia History: Denies:: Abnormal Airway, Anesthesia Reactions, Difficult Intubation, Fam Anesthesia Reaction Diabetes History Hx Diabetes?: Yes Type of Diabetes: Type II Glycemic Control: Insulin Dependent Current Bedside Blood Glucose: 132 MRSA MRSA: Yes (foot infection, HX of MRSA) Medications Home Meds Incl Beta Charley: No Reported Medications Acetaminophen 325 Mg [id number] Mg PO Q4H PRN For Pain 06/14/16 Calcium Acetate 667 Mg Capsule2 Each PO TIDWM 06/14/16 Insulin Human Lispro (HumaLOG U100 Insulin Vial)100 Unit/Ml Unit10 Units SQ ACHS 03/14/16 Cholecalciferol (Vitamin D3) (Vitamin D3)1,000 Unit Tab.chew1,000 Unit PO DAILY 03/09/16 Sevelamer Carbonate (Renvela)800 Mg [id number] Mg PO TID 03/09/16 Insulin Glargine (Lantus U100 Insulin Vial)100 Unit/Ml Vial30 Unit SUBQ QPM 03/09/16 Aspirin 81 Mg [id number] Mg PO DAILY 03/09/16 History History of ENT Problems?: No HEENT History: Denies:: Abnormal Airway Cataracts Difficult Intubation Dysphagia Hearing Problem Sinus Problem TMJ Hx of Heart Problems?: Yes Cardiovascular History: Positive for:: Edema Hypertension Irregular Heartbeat (bradycardia (with junctional tach 12/2015)) Denies:: Cardiac Surgery Chest Pain Congestive Heart Failure Heart Murmur Pacemaker Thrombophlebitis Hx of Respiratory Problem?: No Respiratory History: Denies:: Asthma COPD Chest Surgery Dyspnea Emphysema Hemoptysis Oxygen Administration Pneumonia Tuberculosis Use of C-PAP Machine (sleep study suggested- has not had yet) Hx Neurologic Problems?: No Neurological History: Denies:: Alzheimer's Disease CVA Dementia Dizziness Headaches Multiple Sclerosis Parkinson's Disease Seizures Hx of GI Problems?: Yes Gastrointestinal History: Positive for:: Gastroesphageal Reflux Denies:: Cirrhosis Diverticulitis Gastrointestinal Bleeding Heartburn Hepatitis Hiatal Hernia Rectal Bleeding Hx of Problems?: Yes Genitourinary History: Positive for:: HX of Hemodialysis ( Mon, Wed, Fri ) Denies:: Kidney Stones Urinary Tract Infection HX of Peritoneal Dialysis: Yes Male Hx: Denies:: Prostate Problems Scrotal Mass Testicular Surgery Skin History: Positive for:: History Skin Disorders? (right wound ulcer ) Denies:: Pressure Ulcers Hx Musculoskeletal Problems?: No Musculoskeletal History: Denies:: Back Injury Degenerative Joint Joint Replacement Musculoskeletal Trauma Systemic Lupus Hx of Psycho/Social Problems?: No Psycho Social History: Denies:: Anxiety Bipolar Disorder Hx Depression Suicide Attempt Hx Surgeries?: Yes (fistula, fistulogram) Hx Any Other Health Problems?: Yes Other History: Positive for:: Hospitalization (Fistulagram last year. Fistula placement 2010) Denies:: Cancer Endocrine Disease Thyroid Disease History Blood Transfusions: Positive for:: Accept Blood Products? Denies:: Blood Transfuse Reaction Blood Transfusions Hx Diabetes: YesBedside Blood Glucose: 132 Hx Alcohol Use: NoHx Substance Use: No Smoking Status: Former Smoker Have You Smoked inLast 12 mo: No Stop/Bang Treated for Sleep Apnea?: No Do You Have a CPAP Machine?: No S-Snoring: Do You Snore Loudly: Yes T-Tired: feel tired, fatigued: Yes O-Obsered: Observed not breath: No P-Blood Pressure: treated: No B- Body Mass Index > 35 kg/m2: Yes A- Age over 50: No N- Neck Large Circumference: No G- Gender Male: Yes MABLE Total Score: 5 Risk Assessment Category Category 1A: Patient has history of documented sleep apnea, and HAS NOT received any narcotic, sedative or anesthesia administration during this stay. Category 1B: Patient has history of documented sleep apnea, and HAS received any narcotic , sedative or anesthesia administration during this stay Category 2: Patient has SUSPECTED Obstructive Sleep Apnea, and HAS received any narcotic , sedative or anesthesia administration during this stay. Category 3: Patient has SUSPECTED Obstructive Sleep Apnea and HAS NOT received narcotic, sedative or anesthesia administration during this stay. Category 4: Outpatient in Procedural Areas with known sleep apnea or who screen positive for High Risk via the STOP/BANG questionnaire. Exam Exam Vital Signs Vital Signs Date Time Temp Pulse Resp B/P Pulse Ox O2 Delivery O2 Flow Rate FiO2 06/22/16 12:30 45 16 149/58 100 Room Air 06/22/16 08:05 37.0 48 18 127/53 99 Room Air 06/22/16 08:00 46 General Appearance: Alert, Oriented X3, Cooperative, No Acute Distress Lungs: Diminished Heart: Exam Unremarkable Meds/Labs/Diagnostics Admission Meds Current Medications Sodium Chloride (Normal Saline) 250 ml @ 10 mls/hr Q24H IV Last administered on 06/22/16t 08:44; Start 06/22/16 at 08:00 Bedside Blood Glucose: 132 Labs Test 06/14/16 12:15 06/15/16 02:36 06/15/16 10:30 06/15/16 18:45 Hemoglobin A1c 6.5% (4.8-5.6) Procalcitonin 70.45ng/mL (See Comment) Troponin T 0.142ug/L (0.0-0.011) Lipase 9U/L (13-60) Magnesium Level 2.0mg/dL (1.6-2.6) Lactic Acid Level 1.5mmol/L (0.4-2.0) Test 06/16/16 14:55 06/17/16 05:48 06/20/16 05:35 06/21/16 06:00 Vancomycin Level Trough 22.0mcg/mL Hold Wolfe Top Tube Received (Received) Phosphorus Level 8.1mg/dL (2.5-4.9) Total Bilirubin 0.3mg/dL (0.0-1.2) Aspartate Amino Transf (AST/SGOT) 14U/L (0-50) Alanine Aminotransferase (ALT/SGPT) 5U/L (0-44) Alkaline Phosphatase 79U/L (25-150) Total Protein 7.8g/dL (6.4-8.4) Albumin 2.9g/dL (3.4-5.0) Test 06/22/16 07:30 White Blood Count 4.3th/mm3 (3.8-10.1) Red Blood Count 2.58mil/mm3 (4.40-5.80) Hemoglobin 8.1g/dL (13.8-17.2) Hematocrit 25.9% (41.0-50.0) Mean Corpuscular Volume 100.4fL (81-100) Mean Corpuscular Hemoglobin 31.4pg (27.0-35.0) Mean Corpuscular Hemoglobin Concent 31.3% (32.0-37.0) Red Cell Distribution Width 15.6% (12.3-15.4) Platelet Count 218bil/L (150-400) Neutrophils (%) (Auto) 62.0% (40-74) Lymphocytes (%) (Auto) 19.1% (14-46) Monocytes (%) (Auto) 10.4% (4-12) Eosinophils (%) (Auto) 5.5% (0-5) Basophils (%) (Auto) 1.2% (0-3) Sodium Level 136mEq/L (134-144) Potassium Level 5.8mEq/L (3.5-5.2) Chloride Level 95mEq/L (97-108) Carbon Dioxide Level 25mmol/L (18-29) Blood Urea Nitrogen 35mg/dL (6-24) Creatinine 8.57mg/dL (0.76-1.27) Estimat Glomerular Filtration Rate 7mL/min (>59) Glucose Level 126mg/dL (60-99) Calcium Level 8.6mg/dL (8.5-10.1) Plan Impression Patient chart reviewed, patient interviewed and anesthestic plan with risks, benefits, and alternatives discussed, and informed consent obtained. NPO Status: MN ASA Physical Status: ASA3 Severe Disease (MABLE, IDDM, ESRD) Anesthetic Plan: MAC Bene/Risks/Altern/Consents: Yes HP Complete Prior to Induction: Yes Janes Dobbs MD Jun 22, 2016 13:09
--- NOTE | 2016-06-22 13:30 | NUR ---
PROBE OUT, SEE SEDATION AND YURI FLOW SHEETS
--- NOTE | 2016-06-22 13:32 | PCM.ANEP1 ---
Post Anesthesia Phase 1 PACU Phase 1 Assessment Date of Service: Jun 22, 2016 (1230) Vital Signs Vital Signs Date Time Temp Pulse Resp B/P Pulse Ox O2 Delivery O2 Flow Rate FiO2 06/22/16 12:30 45 16 149/58 100 Room Air 06/22/16 08:05 37.0 48 18 127/53 99 Room Air 06/22/16 08:00 46 Anesthetic Administered: MAC Level of Alertness: Sleeping, hard to arouse Pain: No Pain Scale Score: 5 Nausea or Vomiting: No Oxygen Delivery: Nasal Cannula Lungs: Diminished Dermatome Level: Full Sensation Janes Dobbs MD Jun 22, 2016 13:32
--- NOTE | 2016-06-22 13:49 | PCM.ANEP2 ---
Post Anesthesia Evaluation ASA/CMS Post Anesthesia VS in Patient's Normal Range?: Yes Resp Stable; Airway Patent?: Yes CV Function & Hydration Stable: Yes Mental Status Recovered?: Yes Pain control Satisfactory?: Yes N/V Control Satisfactory?: Yes Janes Dobbs MD Jun 22, 2016 13:49
--- NOTE | 2016-06-22 14:20 | NUR ---
TRANSFER NOTE RETURNED TO MOC. REPORT GIVEN
--- NOTE | 2016-06-22 14:27 | NUR ---
Report from [facility] Received call from Alma Delia in [facility], stated EMILY was done, did not appear to find anything but the report will be forthcoming. 400mg Propofol, 50 ml IV fluids, 240 ml juice given after, no problems swallowing. BP 134/54, HR has been in the 40's and sometimes down in the 30's, a ox3, sats in the high 90's, no issues. Will bring patient to floor, will take to room 243 for dialysis.
--- NOTE | 2016-06-22 14:40 | NUR ---
Diet Contacted Dr. Sherwood with the following cook page: Patient has returned from EMILY, is now getting dialyzed, but is requesting food, as he has been NPO since midnight. Please advise. Thank you. Airam MATA
--- NOTE | 2016-06-22 16:16 | DRSVH ---
[facility] [address] [place] [address] Echocardiogram Report Name: SUZANNE ROJAS te: 06/22/2016 Height: 72 in Hospital Exam Location: [facility] Weight: 276 lb Gender: Male BSA: 2.4 m2 : 1970 Age: 46 yrs BP: 164/77 mmHg Reason For Study: FEVER Ordering Physician: HOSPITALIST [facility] Performed By: Malick Early Referring Physician: Andrea SIM Interpretation Summary Left ventricular systolic function is normal without focal wall motion abnormalities. The ejection fraction is estimated to be 60-65%. The right ventricle grossly appears normal in size with probable normal systolic function. Right ventricular systolic pressure is estimated to be 40 mmHg plus the clinically estimated CVP which cannot be estimated on this exam. There is severe tricuspid regurgitation. There is no other significant valvular heart disease. There is no evidence by EMILY that would suggest endocarditis. Procedure: Informed consent for Transesophageal Echocardiogram, and use of a contrast agent as needed, was obtained prior to the procedure. The patient was brought to the [facility] in a fasting state. An intravenous line was placed. A topical anesthetic agent was used for oropharangeal anesthesia. A bite block was inserted. Sedation was managed by anesthesiologist; see anesthesiology notes for details. A multifrequency, multiplane transesopheageal echocardiographic endoscope was inserted and manipulated in the standard fashion to achieve multiplane views. The transesophageal probe was passed without difficulty. A 2D transesophageal echocardiogram with spectral and color flow Doppler was performed. Limited views were obtained. The patient's vital signs, including blood pressure, heart rate, pulse oximetry and cardiac rhythm were monitored throughout the procedure and remained stable. The patient tolerated the procedure well without evidence of orophangeal or esophageal trauma. Comparison is made with the echocardiogram of 06/16/16. There is no prior echocardiogram noted for this patient. The patient was in atrial fibrillation with a heart rate of 43-77 beats per minute. Left Ventricle: The left ventricle is grossly normal size. Left ventricular systolic function is normal without focal wall motion abnormalities. The ejection fraction is estimated to be 60-65%. Right Ventricle: The right ventricle grossly appears normal in size with probable normal systolic function. Atria: The interatrial septum is intact with no evidence for an atrial septal defect. Mitral Valve: There is no vegetation seen on the mitral valve. There is trace mitral regurgitation. Aortic Valve: The aortic valve is trileaflet. The aortic valve opens well. There is no aortic valvular vegetation. No aortic regurgitation is present. Tricuspid Valve: The tricuspid valve leaflets are thin and pliable. There is no tricuspid valve vegetation. There is severe tricuspid regurgitation. Right ventricular systolic pressure is estimated to be 40 mmHg plus the clinically estimated CVP which cannot be estimated on this exam. Pulmonic Valve: The pulmonic valve is not well seen, but is grossly normal. There is no vegetation on the pulmonic valve. There is no pulmonic valvular regurgitation. There is no other significant valvular heart disease. Great Vessels: The aortic root is normal size. The dimensions of the ascending aorta are normal. The aortic arch is normal in size. Pericardium/ Pleura: There is no pericardial effusion. Doppler Measurements & Calculations TR max boogie: 314.4 cm/sec TR max P.8 mmHg Reading Physician:ANNA
[2016-06-22] MEDS ORDERED: Propofol 10,000 mCg/mL 20 mL Inj ONE (18:24)
[2016-06-22] MEDS ORDERED: Glycopyrrolate 0.2 mg/mL 5 mL Inj ONE (18:24)
--- NOTE | 2016-06-22 19:00 | NUR ---
Dialysis note: S/P EMILY. 4 hrs tx. 3000 ml net UF. Left catheter, dsg dry and intact. Pls see DTR for VS details. Qb 300-350. Heparin given. O2 @ 2L via NC on. 1 unit PRBC given with no problems. Tolerated tx, slept at intervals. Catheter flushed, heparin dwelled and secured. Report given to Airam Mark RN. Transferred back to patient's room in stable condition.
[2016-06-22] MEDS ORDERED: Darbepoetin Alfa (ESRD) 60 mCg/0.3 mL Inj IV ONE (19:25)
[2016-06-23] VITALS (7 sets, daily range): BP systolic 116–145; BP diastolic 54–64; PULSE 44–68; RESP 14–19; O2SAT 92–100
--- NOTE | 2016-06-23 00:21 | PCM.PNMED ---
Subjective Date of Service Jun 23, 2016 Subjective Patient was seen on hemodialysis. He is in no apparent distress. He complains of feeling hungry as he has not had anything to eat since yesterday. He has no other new complaints. Exam Vital Signs Vital Sign - Last Date Time Temp Pulse Resp B/P Pulse Ox O2 Delivery O2 Flow Rate FiO2 06/22/16 21:24 Supplement Oxygen 06/22/16 20:54 36.9 76 17 155/70 92 06/22/16 13:45 4.00 Intake and Output 06/22/16 06/22/16 06/23/16 Cumulative From/Thru 15:00 23:00 07:00 06/14/16 11:17 - 06/22/16 21:24 Intake Total 290 ml 470 ml 9021 ml Output Total 3000 ml 0 ml 9370 ml Balance -2710 ml 470 ml -349 ml Intake Oral 240 ml 0 ml 6063 ml IV Total 50 ml 120 ml 2608 ml Packed Cells 350 ml 350 ml Output Urine Total 0 ml 0 ml Stool Total 250 ml Ultrafiltrate 3000 ml 9000 ml Estimated Blood Loss 120 ml # Bowel Movements 8 Exam General: Patient is in no apparent distress on hemodialysis. HEENT: Head is atraumatic normocephalic. Eyes: Pupils are equally round and reactive to light and accommodation. Extraocular muscles are intact. Sclera are white anicteric. Subconjunctival mucosa is pink. Ears and nose are unremarkable. Oropharynx: There is no mucosal lesions, there is no thrush, there is no pharyngitis. Neck: Is supple, there are no nodes, or masses, or tenderness. Chest: Is clear to auscultation and percussion. There are no rales, rhonchi, wheezes or rubs. Heart: Rate, rhythm is regular. There is no murmur, rub or gallop. Abdomen: Good bowel sounds are present. Abdomen is soft, nontender, no organomegaly or masses were appreciated. Extremities: Are symmetrical and well perfused. The left foot ulcer appears to have a beefy red base with no necrotic tissue. The left foot dressing is clean dry and intact. Neurologic: There are no focal neurological deficits. Cranial nerves II through XII are intact. There are no sensory or motor deficits. Psychiatric: Patients mood is calm and shows no sign of agitation. Genital: Deferred Rectal: Deferred Lab and Diagnostics Result Diagram: 06/22/16 0730 06/22/16 0730 Microbiology Foot wound culture 06/17/16: Staph aureus Blood cultures 06/14/16: Staph aureus Cardiac Echo Impressions Echocardiogram Report Name: SUZANNE ROJAS te: 06/22/2016 Height: 72 in Hospital Exam Location: [facility] Weight: 276 lb Gender: Male BSA: 2.4 m2 : 1970 Age: 46 yrs BP: 164/77 mmHg Reason For Study: FEVER Ordering Physician: HOSPITALIST [facility] Performed By: Malick Early Referring Physician: Andrea SIM Interpretation Summary Left ventricular systolic function is normal without focal wall motion abnormalities. The ejection fraction is estimated to be 60-65%. The right ventricle grossly appears normal in size with probable normal systolic function. Right ventricular systolic pressure is estimated to be 40 mmHg plus the clinically estimated CVP which cannot be estimated on this exam. There is severe tricuspid regurgitation. There is no other significant valvular heart disease. There is no evidence by EMILY that would suggest endocarditis. Assessment & Plan Suzanne is a 46yo [facility] male with ESRD on hemodialysis for 10+ years who presented to [facility] with fever and was found to have MSSA bacteremia without an obvious source. He has ulcerations on the left foot which are currently thought to be the likely source of infection though a EMILY has not been done to more thoroughly evaluate for potential endocarditis. 1. MSSA bacteremia, present on admission - Initially had sepsis due to the bacteremia, sepsis now resolved - Blood cultures with growth of MSSA 4 of 4 bottles on 06/14/16 and 1 of 4 bottles on 06/15/16, no growth on more recent blood cultures - Left foot ulceration is the probable source of infection - EMILY done today and shows no valvular vegetations to suggest endocarditis - We will restart renal diet - Cefazolin per Dr Hager's expertise - Received vancomycin, Zosyn, and Levaquin earlier in this hospitalization 2. Hyperkalemia due to ESRD and inability to do dialysis for 2 days, now having dialysis - Anticipate that this should be resolved with dialysis - Monitor 3. ESRD, chronically on hemodialysis with thrombus of his left upper extremity graft - Tunnel catheter has been placed this morning and hemodialysis performed - Nephrology providing expertise - Continue sevelamer and monitor serum phosphate level per nephrology - Monitor his phosphorus level 4. Left foot ulceration in the setting of peripheral vascular disease - [place] PRN pain - Podiatry evaluated the patient with debridement performed and culture obtained which grew MSSA - Dressing changes to the foot; will need outpatient follow up 5. Bradycardia, unclear chronicity, ongoing - Has been bradycardic since admission - Evaluated by Dr Del Rosario (cardiology) and outpatient sleep study for evaluation of MABLE recommended - Avoiding beta blockers and calcium channel blockers - Monitoring 6. Hypertension, chronic and stable -Continue to monitor 7. Diabetes mellitus with complications including diabetic nephropathy and peripheral vascular disease - Home medications - Correctional scale insulin, hypoglycemic protocol - Aspirin 81 mg 8. Chronic normocytic anemia secondary to ESRD, stable - Monitoring Bowel regimen PRN Pain Evaluation: Adequate Pain Control VTE Mechanical Devices: Intermittant Pneumatic CD Resuscitation Status: CPR: Attempt Resuscitation Andrew Sherwood MD Jun 23, 2016 00:21
[2016-06-23] MEDS: Insulin LISPRO 300 Unit/3 mL Inj SUBQ SCH ×2 (07:46→12:00)
--- NOTE | 2016-06-23 09:53 | NUR ---
Dialysis Pt to dialysis at about 0900. Stable and w/o complaints. Addendum: 06/23/16 at 1441 by HARSHAD US RN back from dialysis at 1330. Pharmacy to prepare and send antibiotic ordered.
--- NOTE | 2016-06-23 11:23 | PCM.PNMED ---
Subjective Date of Service Jun 23, 2016 Subjective s/p EMILY shows no evidence of IE. Pt is seen during HD, no complications. s/p blood transfusion yesterday with HD. Exam Vital Signs Vital Sign - Last Date Time Temp Pulse Resp B/P Pulse Ox O2 Delivery O2 Flow Rate FiO2 06/23/16 08:00 55 06/23/16 07:45 Supplement Oxygen 06/23/16 07:45 36.6 14 145/63 94 06/23/16 00:28 2.00 Intake and Output 06/22/16 06/22/16 06/23/16 Cumulative From/Thru 15:00 23:00 07:00 06/14/16 11:17 - 06/23/16 06:03 Intake Total 290 ml 470 ml 450 ml 9471 ml Output Total 3000 ml 0 ml 0 ml 9370 ml Balance -2710 ml 470 ml 450 ml 101 ml Intake Oral 240 ml 0 ml 450 ml 6513 ml IV Total 50 ml 120 ml 2608 ml Packed Cells 350 ml 350 ml Output Urine Total 0 ml 0 ml 0 ml Stool Total 250 ml Ultrafiltrate 3000 ml 9000 ml Estimated Blood Loss 120 ml # Bowel Movements 8 Exam General: No acute distress, alert and oriented x3. HEENT: atraumatic, anicteric sclera, mucus membranes moist Cardiovascular: Regular rhythm, soft systolic murmur noted, no rub, or gallop. No JVD. Respiratory: equal BS, no wheezes rales or rhonchi. GI: Normoactive bowel tones. Soft, nontender and nondistended. Extremities: No clubbing cyanosis, dressing on left foot, trace edema. left AVG no good thrill. Psych: Mood appropriate, normal affect. Pleasant. Skin: left tunneled cath in place, dry, clean and intact. Lab and Diagnostics Result Diagram: 06/22/16 0730 06/22/16 0730 Microbiology Foot wound culture 06/17/16: Staph aureus Blood cultures 06/14/16: Staph aureus Cardiac Echo Impressions Echocardiogram Report Name: SUZANNE ROJAS Da te: 06/22/2016 Height: 72 in Hospital Exam Location: [facility] Weight: 276 lb Gender: Male BSA: 2.4 m2 : 1970 Age: 46 yrs BP: 164/77 mmHg Reason For Study: FEVER Ordering Physician: HOSPITALIST [facility] Performed By: Malick Early Referring Physician: Andrea SIM Interpretation Summary Left ventricular systolic function is normal without focal wall motion abnormalities. The ejection fraction is estimated to be 60-65%. The right ventricle grossly appears normal in size with probable normal systolic function. Right ventricular systolic pressure is estimated to be 40 mmHg plus the clinically estimated CVP which cannot be estimated on this exam. There is severe tricuspid regurgitation. There is no other significant valvular heart disease. There is no evidence by EMILY that would suggest endocarditis. Assessment & Plan 1. ESRD on HD MWF. 2. Malfunctioning AVG. s/p exploration of left brachiobasilic dialysis graft with balloon thrombectomy. A thrombectomy catheter was passed through the arterial anastomosis with a very small amount of thrombus came out. No evidence of stenosis at both arterial and venous anastomosis. Arterial flow detected. - still with poor function. s/p left tunneled cath placement ion 06/21/16. 3. MSSA bacteremia secondary to left foot ulcers/osteomyelitis. no IE per EMILY. 4. HTN with hypertensive nephrosclerosis. 5. DM with nephropathy. Plan: He will likely need a new AVG/AVF placement eventually once MSSA bacteremia is completely treated. Dr. YESI Menendez informed that pt will need IV Ancef 2 gm on Mon-Wed and 3 gm on Fri to complete for 6 weeks (July 28). Repeat CBC and BMP after HD. Per renal standpoint, he can be d/c'd home. VTE Mechanical Devices: Intermittant Pneumatic CD Resuscitation Status: CPR: Attempt Resuscitation Casey Schrader MD Jun 23, 2016 11:23
--- NOTE | 2016-06-23 11:51 | NUR ---
Rounds 1030 requests that kayexalate be held as pt is in dialysis this am. To redraw labs following dialysis.
[2016-06-23] MEDS ORDERED: Darbepoetin Alfa (ESRD) 60 mCg/0.3 mL Inj IV ONE (12:00)
--- NOTE | 2016-06-23 12:18 | PROG NOTE ---
[address] [address] PROGRESS NOTE PATIENT: SUZANNE ROJAS : 1970 MR#: [id number] ADMIT: 06/14/2016 JOB ID: [id number] DATE: 06/23/2016 REASON FOR FOLLOWUP: High-grade MSSA bacteremia with osteomyelitis of the left foot. INTERVAL HISTORY: The patient reports he is doing quite well on his dialysis today. Recall that he has been dialyzed consecutive days because he had missed some dialysis due to the lack of access. He is now being dialyzed through a Vas-Cath, as his left upper extremity graft does not work, but we do not think it is infected. The patient has no fevers, chills, or sweats. No trouble breathing. No pain in his left nonfunctional graft site. No significant pain in his insensate left foot which was recently debrided. PHYSICAL EXAMINATION: Reveals an afebrile gentleman, temperature 36.6, pulse 55, respiratory rate 14, blood pressure 145/63, saturating well on room air and being dialyzed as we speak. He is awake and alert. Oral cavity negative. Lungs clear. Left upper extremity graft site is nontender but nonfunctional. Abdomen just slightly distended, soft, and nontender. The left foot is dressed in a bulky dressing at the site of his recent debridement. LABORATORIES: Include a white count of 4300, platelet count 218,000, creatinine 8.57 yesterday, and of course he is being dialyzed again today. His LFTs are normal. Micro studies notable for the blood and foot growing MSSA. IMAGING: No new imaging has been done. The patient did have his echo, and it showed no evidence of endocarditis. This was a transesophageal echocardiogram done by Dr. Valdez. IMPRESSION: This gentleman has suffered a high-grade methicillin-sensitive Staphylococcus aureus bacteremia which arose from the osteomyelitis in his left foot. There is no evidence that he has infection of the left upper extremity graft, nor any evidence of endocarditis. At this point, he is doing well with negative followup blood cultures, and I think he could be discharged at any time. RECOMMENDATIONS: 1. Ancef in the 2-2-3 configuration at the end of dialysis to be given through July 28. 2. He should have weekly CBCs just to make sure he does not develop neutropenia or other hematologic complication from this long course of Ancef. 3. Follow up will be with his electrical controls assembler, Dr. Menendez, as well as his administrative support specialist. 4. ID will go ahead and sign off.
--- NOTE | 2016-06-23 13:20 | NUR ---
Dialysis note: 4 hrs tx. 3000 ml net UF. Left catheter, dsg dry and intact. Pls see DTR for VS details. Qb 350-400. Heparin given. O2 @ 2L via NC on. Aranesp 60 mcg IV given. Tolerated tx, slept at intervals. Catheter flushed, heparin dwelled and secured. Report given to Dion Thomas RN. Transferred back to patient's room in stable condition.
[2016-06-23] MEDS ORDERED: CeFAZolin Inj 3 GM in IV Premix IV SCH (13:30)
--- NOTE | 2016-06-23 14:14 | NUR ---
Manhole Stripper met with patient at bedside and notified him that the physician was recommending HH Nursing for his woundcare. Patient voiced understanding. SW provided patient with a list of HH companies and patient chose [facility]. SW notified Kash with [facility] of the referral and gave [facility] access to the patient's chart. SW faxed HH face to face to [facility]. SW will continue to follow patient. Plan: Patient will discharge home with [facility]. SW will continue to follow. Tila Barrios LMSW, YANCY
[2016-06-23 15:12] LABS: Mean Corpuscular Hemoglobin 31.6 pg (27.0-35.0); Mean Corpuscular Volume 98.5 fL (81-100)
[2016-06-23 15:33] LABS: Magnesium 1.8 mg/dL (1.6-2.6)
--- NOTE | 2016-06-23 16:07 | PCM.PNPOD ---
Subjective Date of Service: Jun 23, 2016 Visit Information: Reason for Visit FEVER Date of Admission: Jun 14, 2016 at 17:00 Postop General: No Complaints Gastrointestinal: Good Appetite Pain Management: PO Neurological: Numbness (peripheral neuropathy) Objective Vital Sign - Last Date Time Temp Pulse Resp B/P Pulse Ox O2 Delivery O2 Flow Rate FiO2 06/23/16 13:40 36.7 68 16 116/64 100 Room Air 06/23/16 00:28 2.00 Intake and Output 06/22/16 06/22/16 06/23/16 Cumulative From/Thru 15:00 23:00 07:00 06/14/16 11:17 - 06/23/16 06:03 Intake Total 290 ml 470 ml 450 ml 9471 ml Output Total 3000 ml 0 ml 0 ml 9370 ml Balance -2710 ml 470 ml 450 ml 101 ml Intake Oral 240 ml 0 ml 450 ml 6513 ml IV Total 50 ml 120 ml 2608 ml Packed Cells 350 ml 350 ml Output Urine Total 0 ml 0 ml 0 ml Stool Total 250 ml Ultrafiltrate 3000 ml 9000 ml Estimated Blood Loss 120 ml # Bowel Movements 8 Result Diagram: 06/23/16 1450 06/23/16 1450 Lab Test 06/14/16 12:15 06/15/16 02:36 06/15/16 18:45 06/16/16 14:55 Hemoglobin A1c 6.5% (4.8-5.6) Procalcitonin 70.45ng/mL (See Comment) Troponin T 0.142ug/L (0.0-0.011) Lipase 9U/L (13-60) Lactic Acid Level 1.5mmol/L (0.4-2.0) Vancomycin Level Trough 22.0mcg/mL Test 06/17/16 05:48 06/20/16 05:35 06/21/16 06:00 06/22/16 07:30 Hold Wolfe Top Tube Received (Received) Phosphorus Level 8.1mg/dL (2.5-4.9) Total Bilirubin 0.3mg/dL (0.0-1.2) Aspartate Amino Transf (AST/SGOT) 14U/L (0-50) Alanine Aminotransferase (ALT/SGPT) 5U/L (0-44) Alkaline Phosphatase 79U/L (25-150) Total Protein 7.8g/dL (6.4-8.4) Albumin 2.9g/dL (3.4-5.0) Neutrophils (%) (Auto) 62.0% (40-74) Lymphocytes (%) (Auto) 19.1% (14-46) Monocytes (%) (Auto) 10.4% (4-12) Eosinophils (%) (Auto) 5.5% (0-5) Basophils (%) (Auto) 1.2% (0-3) Test 06/23/16 14:50 White Blood Count 6.1th/mm3 (3.8-10.1) Red Blood Count 3.32mil/mm3 (4.40-5.80) Hemoglobin 10.5g/dL (13.8-17.2) Hematocrit 32.7% (41.0-50.0) Mean Corpuscular Volume 98.5fL (81-100) Mean Corpuscular Hemoglobin 31.6pg (27.0-35.0) Mean Corpuscular Hemoglobin Concent 32.1% (32.0-37.0) Red Cell Distribution Width 16.0% (12.3-15.4) Platelet Count 292bil/L (150-400) Sodium Level 133mEq/L (134-144) Potassium Level 4.7mEq/L (3.5-5.2) Chloride Level 94mEq/L (97-108) Carbon Dioxide Level 24mmol/L (18-29) Blood Urea Nitrogen 10mg/dL (6-24) Creatinine 3.44mg/dL (0.76-1.27) Estimat Glomerular Filtration Rate 20mL/min (>59) Glucose Level 187mg/dL (60-99) Calcium Level 8.6mg/dL (8.5-10.1) Magnesium Level 1.8mg/dL (1.6-2.6) Exam General: Alert, Oriented X3, Cooperative, No Acute Distress Lungs: Diminished Lower Extremities: Left: Edema localized (foot) Extremity warm (erythema in lateral foot improving) Lower Extremity Pulses: Doppler: Left Dorsalis Pedis Left Posterior Tibal Right Dorsalis Pedis Right Posterior Tibal Postop Sensory Motor: Distal Motor Intact Podiatry WOUND : Wound Location/Description Left foot 5th toe wound: 4.5cm x 2.5cm wound x 0.8cm deep, 30% granular tissue, 70% fibrin building up. After debridement 4.5cm x 3cm wound x1cm deep Right foot no open ulcers. Chronic postulcerative callus plantar 1st IP joint. Assessment & Plan Problems: (1) Abscess of foot including toes Qualifiers: Laterality: left Qualified Code: L02.612 - Cutaneous abscess of left foot Plan: I irrigated the left foot wound with normal saline and excisionally debrided through skin, subcutaneous tissue, and some capsule, dressed with NS moistened gauze and dry Kerlix and tape. When patient is ready for discharge, change to saline-moistened Aquacel Ag, gauze, and Kerlix wrap, 4" John wrap. It looks like the toe is viable, but 5th PIP joint will need to be excised. New microbiology results show MSSA.. Duration of antibiotic for 6 weeks could ensure maintaining the viability of the 5th toe with local wound care. Patient is scheduled to see Dr. Matthew at [facility] on 06/29/16. If still in hospital on Sunday, podiatry provider to assess in hospital. Status: Acute ICD Code: L02.619 (2) DM manif NEC type II Plan: Continue tight blood sugar control. Status: Acute ICD Code: E11.69 (3) End-stage renal disease Plan: Antibiotics as per Dr. Hager in conjunction with dialysis. Status: Acute ICD Code: N18.6 Aurea Ellis DPM Jun 23, 2016 16:07
--- NOTE | 2016-06-23 16:49 | NUR ---
Patient gave Verbal Consent for REYNA.
--- NOTE | 2016-06-23 17:22 | PCM.DIMED ---
Discharge Instructions Date of Service Jun 23, 2016 Dates of Hospitalization Jun 14, 2016 at 17:00 Discharge Diagnosis Discharge Diagnosis Diabetic Foot Ulcer With Staph Bacteremia Diet Diabetic, Renal Diet Activity Home Health Phyical Therapy Patient Instructions Follow-up Provider: DIANE RICHARDS PA-C Follow-up with PCP in: 1 week Provider: Neal Menendez MD Follow-up in: 1 week Mid-level Provider (F9): Aurea Ellis DPM Follow-up with Mid-level in: 1 week Andrew Sherwood MD Jun 23, 2016 17:22
--- NOTE | 2016-06-23 17:23 | NUR ---
Wound Care Pt being discharged from [facility] today. Pt seen at bedside for dressing change, wound was irrigated with saline then redressed with Aquacell Ag moistened with saline, abd pad kerlix and dorina wrapped. Pt instructed to keep dressing dry and to bulk dressing if breakthrough drainage is noted, pt provided with a cast shoe for ambulation. Pt has been accepted by [facility] for home wound care and will f/u at the wound center 06/29/16.
--- NOTE | 2016-06-23 18:10 | NUR ---
discharge reviewed discharge instructions to follow up with [facility] for wound care of left foot. provided pt with contact number for [facility]. Encouraged pt to contact Sunday if he has not heard from [facility]. Provided pt contact number for wound care clinic to verify his appointment information for next . Provided wound care instructions from Oscar at bedside this evening - reinforce only until seen by HH. Provided with supplies to do so. Verified with inpatient ID and nephrology that outpatient antibiotics have been coordinated and will begin Sunday. Pt verbalized understanding. Pt provided with cast boot for left foot. Verified it fits and pt is wearing at bedside. Addendum: 06/23/16 at 1834 by HARSHAD US RN pt discharged with family in at 1815. All belongings with pt. IV dc'd w/o issue. Reinforced instructions to monitor for signs/symptoms of infection at L chest catheter site. Per Dr. Sherwood, pt to notify providers if foot wound is not improving. Pt verbalized understanding of all directions.
--- NOTE | 2016-06-24 00:54 | PCM.DC.MED ---
Discharge Summary Date of Service Jun 23, 2016 Dates of Hospitalization Date of Hospital Admission Jun 14, 2016 at 17:00 Date of Discharge: Jun 23, 2016 Providers: Admitting Physician: Lesa Mcadams MD Primary Care Physician: Diane Richards Pa-C Attending Physician: Lesa Mcadams MD Diagnosis at Time of Discharge Diagnosis at Time of Discharge Diabetic Foot Ulcer With Staph Bacteremia Consultations Dr. Hager of infectious disease and Dr. Ellis of podiatry Procedures Cardiac Echo Impression Echocardiogram Report Name: SUZANNE ROJAS Da te: 06/22/2016 Height: 72 in Hospital Exam Location: [facility] Weight: 276 lb Gender: Male BSA: 2.4 m2 : 1970 Age: 46 yrs BP: 164/77 mmHg Reason For Study: FEVER Ordering Physician: HOSPITALIST [facility] Performed By: Malick Early Referring Physician: Andrea SIM Interpretation Summary Left ventricular systolic function is normal without focal wall motion abnormalities. The ejection fraction is estimated to be 60-65%. The right ventricle grossly appears normal in size with probable normal systolic function. Right ventricular systolic pressure is estimated to be 40 mmHg plus the clinically estimated CVP which cannot be estimated on this exam. There is severe tricuspid regurgitation. There is no other significant valvular heart disease. There is no evidence by EMILY that would suggest endocarditis. Brief History Suzanne is a 46yo [place] male with ESRD on hemodialysis for 10+ years who presented to [facility] with fever and was found to have MSSA bacteremia without an obvious source. He has ulcerations on the left foot which are currently thought to be the likely source of infection though a EMILY has not been done to more thoroughly evaluate for potential endocarditis. Hospital Course Suzanne is a 46yo [place] male with ESRD on hemodialysis for 10+ years who presented to [facility] with fever and was found to have MSSA bacteremia without an obvious source. He has ulcerations on the left foot which are currently thought to be the likely source of infection though a EMILY has not been done to more thoroughly evaluate for potential endocarditis. 1. MSSA bacteremia, present on admission - Initially had sepsis due to the bacteremia, sepsis now resolved - Blood cultures with growth of MSSA 4 of 4 bottles on 06/14/16 and 1 of 4 bottles on 1/19/17, no growth on more recent blood cultures - Left foot ulceration is the probable source of infection - EMILY was done yesterday and showed no valvular vegetations to suggest endocarditis - We will restart renal diet - Cefazolin per Dr Hager's expertise - Received vancomycin, Zosyn, and Levaquin earlier in this hospitalization 2. Hyperkalemia due to ESRD and inability to do dialysis for 2 days, now having dialysis - Anticipate that this should be resolved with dialysis - Monitor 3. ESRD, chronically on hemodialysis with thrombus of his left upper extremity graft - Tunnel catheter has been placed this morning and hemodialysis performed - Nephrology providing expertise - Continue sevelamer and monitor serum phosphate level per nephrology - Monitor his phosphorus level 4. Left foot ulceration in the setting of peripheral vascular disease - [place] PRN pain - Podiatry evaluated the patient with debridement performed and culture obtained which grew MSSA - Dressing changes to the foot; will need outpatient follow up 5. Bradycardia, unclear chronicity, ongoing - Has been bradycardic since admission - Evaluated by Dr Del Rosario (cardiology) and outpatient sleep study for evaluation of MABLE recommended - Avoiding beta blockers and calcium channel blockers - Monitoring 6. Hypertension, chronic and stable -Continue to monitor 7. Diabetes mellitus with complications including diabetic nephropathy and peripheral vascular disease - Home medications - Correctional scale insulin, hypoglycemic protocol - Aspirin 81 mg 8. Chronic normocytic anemia secondary to ESRD, stable - Monitoring Bowel regimen PRN Exam Vital Signs (Last) Date Time Temp Pulse Resp B/P Pulse Ox O2 Delivery O2 Flow Rate FiO2 06/23/16 13:40 36.7 68 16 116/64 100 Room Air 06/23/16 00:28 2.00 Exam General: Patient is in no apparent distress on hemodialysis. HEENT: Head is atraumatic normocephalic. Eyes: Pupils are equally round and reactive to light and accommodation. Extraocular muscles are intact. Sclera are white anicteric. Subconjunctival mucosa is pink. Ears and nose are unremarkable. Oropharynx: There is no mucosal lesions, there is no thrush, there is no pharyngitis. Neck: Is supple, there are no nodes, or masses, or tenderness. Chest: Is clear to auscultation and percussion. There are no rales, rhonchi, wheezes or rubs. Heart: Rate, rhythm is regular. There is no murmur, rub or gallop. Abdomen: Good bowel sounds are present. Abdomen is soft, nontender, no organomegaly or masses were appreciated. Extremities: Are symmetrical and well perfused. The left foot ulcer was examined with wound care nurse Oscar and has a beefy red base with no necrotic tissue. The left foot dressing is clean dry and intact. Neurologic: There are no focal neurological deficits. Cranial nerves II through XII are intact. There are no sensory or motor deficits. Psychiatric: Patients mood is calm and shows no sign of agitation. Genital: Deferred Rectal: Deferred Test 06/14/16 12:15 06/15/16 02:36 06/15/16 18:45 06/16/16 14:55 Hemoglobin A1c 6.5% (4.8-5.6) Procalcitonin 70.45ng/mL (See Comment) Troponin T 0.142ug/L (0.0-0.011) Lipase 9U/L (13-60) Lactic Acid Level 1.5mmol/L (0.4-2.0) Vancomycin Level Trough 22.0mcg/mL Test 06/17/16 05:48 06/20/16 05:35 06/21/16 06:00 06/22/16 07:30 Hold Wolfe Top Tube Received (Received) Phosphorus Level 8.1mg/dL (2.5-4.9) Total Bilirubin 0.3mg/dL (0.0-1.2) Aspartate Amino Transf (AST/SGOT) 14U/L (0-50) Alanine Aminotransferase (ALT/SGPT) 5U/L (0-44) Alkaline Phosphatase 79U/L (25-150) Total Protein 7.8g/dL (6.4-8.4) Albumin 2.9g/dL (3.4-5.0) Neutrophils (%) (Auto) 62.0% (40-74) Lymphocytes (%) (Auto) 19.1% (14-46) Monocytes (%) (Auto) 10.4% (4-12) Eosinophils (%) (Auto) 5.5% (0-5) Basophils (%) (Auto) 1.2% (0-3) Test 06/23/16 14:50 White Blood Count 6.1th/mm3 (3.8-10.1) Red Blood Count 3.32mil/mm3 (4.40-5.80) Hemoglobin 10.5g/dL (13.8-17.2) Hematocrit 32.7% (41.0-50.0) Mean Corpuscular Volume 98.5fL (81-100) Mean Corpuscular Hemoglobin 31.6pg (27.0-35.0) Mean Corpuscular Hemoglobin Concent 32.1% (32.0-37.0) Red Cell Distribution Width 16.0% (12.3-15.4) Platelet Count 292bil/L (150-400) Sodium Level 133mEq/L (134-144) Potassium Level 4.7mEq/L (3.5-5.2) Chloride Level 94mEq/L (97-108) Carbon Dioxide Level 24mmol/L (18-29) Blood Urea Nitrogen 10mg/dL (6-24) Creatinine 3.44mg/dL (0.76-1.27) Estimat Glomerular Filtration Rate 20mL/min (>59) Glucose Level 187mg/dL (60-99) Calcium Level 8.6mg/dL (8.5-10.1) Magnesium Level 1.8mg/dL (1.6-2.6) Microbiology Results Foot wound culture 06/17/16: Staph aureus Blood cultures 06/14/16: Staph aureus Discharge Medications Discharge Medications Aspirin (Aspirin) 81 Mg Tablet 81 MG PO DAILY (Reported) Calcium Acetate (Calcium Acetate) 667 Mg Capsule 2 EACH PO TIDWM (Reported) Cholecalciferol (Vitamin D3) (Vitamin D3) 1,000 Unit Tab.chew 1,000 UNIT PO DAILY (Reported) Insulin Glargine (Lantus U100 Insulin Vial) 100 Unit/Ml Vial 30 UNIT SUBQ QPM ( Reported) Insulin Human Lispro (HumaLOG U100 Insulin Vial) 100 Unit/Ml Unit 10 UNITS SQ ACHS (Reported) Sevelamer Carbonate (Renvela) 800 Mg Tablet 800 MG PO TID (Reported) As needed Acetaminophen (Acetaminophen) 325 Mg Capsule 325 MG PO Q4H PRN PRN For Pain ( Reported) Followup Plan Disposition: Patient is being discharged home Discharge Diet: Diabetic, Renal Diet Discharge Activity: Home Health Phyical Therapy Follow-up Provider: RICHARDS,DIANE M PA-C Follow-up with PCP in: 1 week Provider: Neal Menendez MD Follow-up in: 1 week Mid-level Provider: Aurea Ellis DPM Follow-up with Mid-level in: 1 week Time spent Time spent on discharging this patient was greater than 35 minutes, over half of which was involved in counseling and coordination of care. Andrew Sherwood MD Jun 24, 2016 00:54
[2016-06-26] MEDS ORDERED: CeFAZolin Inj 2 GM in IV Premix 1 EACH IV SCH (13:30)
== END 2016-06-23 18:25 | disposition home health service (06) | DRG 853 ==
LOC: EDBD 10:48 → SED 10:48 → EDUNIT# 10:48 → MPC 17:00 → MOC 06-20 16:44
PROVIDERS: ADMIT Urology; ATTEND Urology
PROC: 037Y3ZZ Dilation of Upper Artery, Percutaneous Approach (ICD-10-PCS; 2016-06-15)
PROC: 3E05317 Introduction of Other Thrombolytic into Peripheral Artery, Percutaneous Approach (ICD-10-PCS; 2016-06-15)
PROC: 5A1D60Z (ICD-10-PCS; 2016-06-16)
PROC: 0JBR0ZZ Excision of Left Foot Subcutaneous Tissue and Fascia, Open Approach (ICD-10-PCS; principal; 2016-06-17)
PROC: 037Y3ZZ Dilation of Upper Artery, Percutaneous Approach (ICD-10-PCS; 2016-06-20)
PROC: 02HV33Z Insertion of Infusion Device into Superior Vena Cava, Percutaneous Approach (ICD-10-PCS; 2016-06-21)
PROC: 5A1D60Z (ICD-10-PCS; 2016-06-21)
PROC: B24BZZ4 Ultrasonography of Heart with Aorta, Transesophageal (ICD-10-PCS; 2016-06-22)
PROC: 30233N1 Transfusion of Nonautologous Red Blood Cells into Peripheral Vein, Percutaneous Approach (ICD-10-PCS; 2016-06-22)
PROC: 5A1D60Z (ICD-10-PCS; 2016-06-22)
DX: A41.01 Sepsis due to Methicillin susceptible Staphylococcus aureus (principal); N18.6 End stage renal disease; J18.9 Pneumonia, unspecified organism; N25.81 Secondary hyperparathyroidism of renal origin; T82.868A Thrombosis due to vascular prosthetic devices, implants and grafts, initial encounter; I13.11 Hypertensive heart and chronic kidney disease without heart failure, with stage 5 chronic kidney disease, or end stage renal disease; L02.612 Cutaneous abscess of left foot; M86.8X7 Other osteomyelitis, ankle and foot; K52.9 Noninfective gastroenteritis and colitis, unspecified; Z87.891 Personal history of nicotine dependence; Z99.2 Dependence on renal dialysis; E11.621 Type 2 diabetes mellitus with foot ulcer; E11.22 Type 2 diabetes mellitus with diabetic chronic kidney disease; Z79.4 Long term (current) use of insulin; I73.9 Peripheral vascular disease, unspecified; L84 Corns and callosities; E87.5 Hyperkalemia; R00.1 Bradycardia, unspecified; E11.51 Type 2 diabetes mellitus with diabetic peripheral angiopathy without gangrene; D63.1 Anemia in chronic kidney disease; E11.69 Type 2 diabetes mellitus with other specified complication

== ENCOUNTER 2016-10-02 11:03 | Inpatient (IN) | payer MEDICARE, OTHER, MEDICAID ==
[~2016-10-02] VITALS: Ht 182.9 cm; Wt 125.1 kg
[2016-10-02] VITALS (9 sets, daily range): BP systolic 103–150; BP diastolic 38–75; PULSE 35–126; RESP 16–31; O2SAT 96–100
[~2016-10-02 11:03] MED LIST changes: +ACET325C PO; +CALC667C9 PO; -CINA90TA PO; -PHO667 PO
--- NOTE | 2016-10-02 11:13 | ED.REPORT ---
HPI-Chest Pain 40 and Over Date of Service October 02, 2016 ED Provider: History of Present Illness: 46y Nursing Notes Stated Complaint: CHEST PAIN Nursing Notes Reviewed: Yes Allergies: Coded Allergies: No Known Allergies (Verified , 06/14/16) Scheduled Aspirin (Aspirin) 81 Mg Tablet 81 MG PO DAILY Calcium Acetate (Calcium Acetate) 667 Mg Capsule 2 EACH PO TIDWM Cholecalciferol (Vitamin D3) (Vitamin D3) 1,000 Unit Tab.chew 1,000 UNIT PO DAILY Insulin Glargine (Lantus U100 Insulin Vial) 100 Unit/Ml Vial 30 UNIT SUBQ QPM Insulin Human Lispro (HumaLOG U100 Insulin Vial) 100 Unit/Ml Unit 10 UNITS SQ ACHS Sevelamer Carbonate (Renvela) 800 Mg Tablet 800 MG PO TID Scheduled PRN Acetaminophen (Acetaminophen) 325 Mg Capsule 325 MG PO Q4H PRN PRN For Pain General Time Seen by MD: 11:06 Past Medical History Smoking History Former Smoker Physical Exam Initial Vital Signs Vital Signs (First) Date Time Temp Pulse Resp B/P Pulse Ox O2 Delivery O2 Flow Rate FiO2 10/02/16 11:20 36.5 49 20 150/47 100 Room Air Discharge & Departure Referrals: DIANE RICHARDS PA-C (PCP) Andrew Che PAC October 02, 2016 11:13
--- NOTE | 2016-10-02 11:50 | ED.REPORT ---
HPI-Chest Pain 40 and Over Date of Service October 02, 2016 ED Provider: Dr. He 46 y/o male with a hx of renal failure (on hemodialysis), Nonischemic cardiomyopathy and HTN presents to the ED via EMS complaining of chest pain that lasted 5 minutes, onset 3 hours ago. The pt was at his dialysis appointment and had not yet started dialysis when the medics arrived. As per the medics, his heart rate dropped to 30s and was administered 0.5 mg Atropine. The pt reports it is typical for him to experience mild chest pain when his fluid intake increases and he feels better after dialysis. He reports high fluid intake for the last two days.Pt is currently asymptomatic. He denies near syncope, lightheadedness, dizziness, diaphoresis and extremity swelling. Pt denies missing any dialysis appointments recently. Pt's siene maker: Dr. Yen Nursing Notes Stated Complaint: CHEST PAIN Chief Complaint: Dysrhythmia/Cardiac Nursing Notes Reviewed: Yes ([employer] not reconciled) Allergies: Coded Allergies: No Known Allergies (Verified , 10/02/16) Scheduled Aspirin (Aspirin) 81 Mg Tablet 81 MG PO DAILY Calcium Acetate (Calcium Acetate) 667 Mg Capsule 2 EACH PO TIDWM Cholecalciferol (Vitamin D3) (Vitamin D3) 1,000 Unit Tab.chew 1,000 UNIT PO DAILY Clopidogrel (Clopidogrel) 75 Mg Tablet 75 MG PO DAILY Insulin Glargine (Lantus U100 Insulin Vial) 100 Unit/Ml Vial 30 UNIT SUBQ HS Insulin Human Lispro (HumaLOG U100 Insulin Vial) 100 Unit/Ml Unit 10 UNITS SQ TIDWM Sevelamer Carbonate (Renvela) 800 Mg Tablet 3,200 MG PO TIDWM General Time Seen by MD: 11:48 Chief Complaint Chest pain Hx Obtained From: Patient Arrived By: Ambulance Sudden in Onset?: Yes Onset Occurred: 1 - 4 hours ago Symptom Duration: 1 - 15 minutes Severity: Current: No pain currently Severity: Maximum: No pain Recent Healthcare: Recent doctor visit Similar Sx Previous: Yes Past Medical History Past Medical History Notes: Interpretation Summary Left ventricular systolic function is normal without focal wall motion abnormalities. The ejection fraction is estimated to be 60-65%. The right ventricle grossly appears normal in size with probable normal systolic function. Right ventricular systolic pressure is estimated to be 40 mmHg plus the clinically estimated CVP which cannot be estimated on this exam. Echo 05/2016 (done for fever to eval for endocarditis) There is severe tricuspid regurgitation. There is no other significant valvular heart disease. There is no evidence by EMILY that would suggest endocarditis. 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 Physical Exam Pt is pre-dialysis Initial Vital Signs Vital Signs (First) Date Time Temp Pulse Resp B/P Pulse Ox O2 Delivery O2 Flow Rate FiO2 10/02/16 11:20 36.5 49 20 150/47 100 Room Air 10/02/16 12:00 1 Initial VS: Reviewed, Vital signs abnormal (bradycardia) Head / Eyes: Atraumatic, Normocephalic, PERRL ENT: Mucous membranes moist, Conjunctiva normal, No scleral icterus Neck: Supple, Non-tender, Full range of motion Extremities: Vascular intact, Neuro intact, No swelling, No tenderness Skin: Warm, Dry, No cyanosis Neurologic: Alert, Oriented, Nonfocal General/Constitutional: Awake, Alert, No acute distress, Well appearing, Cooperative, Not toxic appearing Appearance / Presentation: Positive: Obese Respiratory / Chest: Atraumatic, Breath sounds = bilat, No respiratory distress , No rhonchi, No wheezing Few rales bilaterally. Cardiovascular: Regular rhythm, Heart sounds NL, No gallop, No murmurs Heart Rate / Rhythm: Positive: Bradycardia Trace edema in lower extremities. Access cather in left chest. Abdomen: Atraumatic, Soft, Non-tender, No guarding, No rebound Interpretation & Diagnostics Lab Results Interpretation Result Diagram: 10/02/16 1210 10/02/16 1210 Test 10/02/16 12:10 White Blood Count 7.7th/mm3 (3.8-10.1) Red Blood Count 3.77mil/mm3 (4.40-5.80) Hemoglobin 11.7g/dL (13.8-17.2) Hematocrit 36.5% (41.0-50.0) Mean Corpuscular Volume 96.8fL (81-100) Mean Corpuscular Hemoglobin 31.0pg (27.0-35.0) Mean Corpuscular Hemoglobin Concent 32.1% (32.0-37.0) Red Cell Distribution Width 14.6% (12.3-15.4) Platelet Count 127bil/L (150-400) Neutrophils (%) (Auto) 66.9% (40-74) Lymphocytes (%) (Auto) 21.7% (14-46) Monocytes (%) (Auto) 7.0% (4-12) Eosinophils (%) (Auto) 3.4% (0-5) Basophils (%) (Auto) 0.7% (0-3) Sodium Level 131mEq/L (134-144) Potassium Level 7.1mEq/L (3.5-5.2) Chloride Level 89mEq/L (97-108) Carbon Dioxide Level 19mmol/L (18-29) Blood Urea Nitrogen 84mg/dL (6-24) Creatinine 11.34mg/dL (0.76-1.27) Estimat Glomerular Filtration Rate 5mL/min (>59) Glucose Level 118mg/dL (60-99) Calcium Level 10.5mg/dL (8.5-10.1) Phosphorus Level 6.6mg/dL (2.5-4.9) Magnesium Level 2.6mg/dL (1.6-2.6) Total Bilirubin 0.5mg/dL (0.0-1.2) Aspartate Amino Transf (AST/SGOT) 18U/L (0-50) Alanine Aminotransferase (ALT/SGPT) 13U/L (0-44) Alkaline Phosphatase 86U/L (25-150) Troponin T 0.131ug/L (0.0-0.011) Total Protein 9.0g/dL (6.4-8.4) Albumin 3.9g/dL (3.4-5.0) Thyroid Stimulating Hormone (TSH) 3.290uIU/mL (0.450-4.500) Lab Results Interpretation: CBC mild anemia, trace homicidal. Severe hyperkalemia, chronic renal failure TSH normal ECG Interpretation ECG Interpretation: EKG prior to arriving at hospital: Bradycardia Unable to tell if junctional or slow A-fib No QRS widening Heart rate: 35 Time: 10:12 Interpreted by: ED physician ECG Interpretation: Follow up EKG: Atrial fib. Rate 116 ST depression V4, V5, V6. lead 2 and lead AVF Pt has no chest pain or ongoing sx New compared to EKG on jun 20 at 09:11 Time: 15:06 Interpreted by: ED physician X-Ray Chest Interpretation Chest Xray Interpretation: IMPRESSION: No acute process. Dictated by: Lobo New M.D. on 10/02/2016 at 11:52 Approved by: Lobo New M.D. on 10/02/2016 at 11:53 View: Portable, 1 view Re-Eval/Medical Decision Med Decision/Clinical Course This is a 46-year-old male with a nonischemic cardiomyopathy is [facility] who is on chronic dialysis for renal failure who's neprhologist is Dr. Menendez is regularly dialyzed at [facility]. She reports she has not missed any dialysis sessions, last dialysis was Sunday, but he reports some added volume intake over the weekend, and presented today for his routine dialysis the sense that he was a little bit of volume overload. He had a sense of trace chest discomfort which he says is typical with volume overload prior to dialysis-but had no atypical symptoms. Just as the patient was being set up for dialysis, he experienced an episode of severe bradycardia, I am told into the low 30s, the lowest captured rhythm strip from EMS is 35. Dialysis was not pursued, EMS was called and the patient is transferred by Mary to here. The patient had no IV access but again developed a severe bradycardia and did receive atropine through that the dialysis access catheter with mild response. I do not get any history of syncope, near-syncope diaphoresis and the patient arrives saying he feels a little volume overloaded, but generally okay with no major complaint. He reports this type of bradycardia has happened with severe hyperkalemia previously. He is not on any rate control agents such as beta garett or calcium channel blockers. On exam, he is alert, answered questions and mildly hypertensive, with a relative bradycardia in the 40s. I cannot tell if it is a slow A. fib or a junctional rhythm. He has had previous history of junctional rhythms. Do not appreciate serene QRS widening or peaked T waves. However the symptoms remains highly concerning for hyperkalemia. Complicating the presentation is very difficult IV access requiring IV therapy to obtain blood work. I spoke to the siene maker Dr. almodovar when he was going to work to try and set the patient up with dialysis, and agreed with initiating empiric therapy. Consistent as an IV was established, the patient received calcium, I received albuterol, insulin, dextrose, and bicarbonate. His heart rate improved and he clinically improved. His labs are returned positive for severe hyperkalemia. At this time are still try to set up the patient up for emergent dialysis. There is a second patient also requires emergent dialysis is going first Source of Hx: Old records Time of Eval: 13:59 Patient Status: Condition improved Re-Evaluation/Progress Note: HR improved, patient doing well. Waiting for dialysis. There are (2) ED patients requiring emergent dialysis and I have been informed this patient will be going 2nd. Time of Eval: 14:30 Re-Evaluation/Progress Note: Rechecked pt. Discussed lab, imaging results and plan to admit. Pt understands and agrees with the plan for admission. All questions addressed. Time of Eval: 15:17 Patient Status: Condition improved Re-Evaluation/Progress Note: Patient feels well. Awaiting diaylsis Time of Eval: 15:58 Patient Status: Condition improved Re-Evaluation/Progress Note: Dialysis called and are now ready for patient to come upstairs Consultation #1: Referral / Consult Name: Watson Corea DO Consulted With: Nephrology Call Returned at: 12:09 Hand Weaver: Will see patient, Agrees with eval, Agrees with plan Consultation #2: Referral / Consult Name: Kashmir Moyer Consulted With: Hospitalist Call Returned at: 12:45 Hand Weaver: Will see patient, Agrees with eval, Agrees with plan, Accepts admit Consultation #3: Referral / Consult Name: Kashmir Moyer Consulted With: Hospitalist Call Returned at: 13:58 Hand Weaver: Will see patient, Agrees with eval, Agrees with plan, Accepts admit Note: Updated Dr. Moyer on pt's labs. Counseled Regarding: Diagnosis, Lab results, Need for admission Discharge & Departure Primary Impression: Hyperkalemia Additional Impressions: Chronic renal failure Chronic kidney disease stage: stage 5 Qualified Code: N18.5 - Chronic kidney disease, stage 5 Bradycardia Disposition: ADMITTED TO HOSPITAL Discharge Condition All VS Reviewed: Yes Referrals: DIANE RICHARDS PA-C (PCP) Crit Care Except Billable Proc Time Spent: 30-74 minutes Services Performed: Patient management by me, Time spent at bedside, Reviewing test results, Reviewing imaging, Discussing patient care, Documentation in record, Time with fam/surrogate Scribe Attestation Portions of this note were transcribed by Neeru Chin. I, , personally performed the history, physical exam and medical decision-making;I reviewed and confirmed the accuracy of the information in the transcribed note. Signed by Edna Cardenas. 10/02/16 15:15 copies to: DIANE RICHARDS PA-C, Matthew F MD October 02, 2016 11:50 Neeru Chin October 02, 2016 13:15
--- NOTE | 2016-10-02 11:54 | DRSVH ---
PROCEDURE: X-RAY CHEST ONE VIEW, PORTABLE ([id number]) INDICATIONS: chest pain TECHNIQUE: One view of the chest was acquired. COMPARISON: [facility], CR, XR CHEST 2VW, 06/14/2016, 13:14. [facility], CR, XR CHEST 1VW (PORTABLE), 01/03/2016, 20:51. FINDINGS: Surgical changes and devices: Left-sided tunneled catheter. Lungs and pleura: No pleural effusions or pneumothorax. Lungs are clear. Mediastinum: Mediastinal contours appear normal. Heart size enlarged. Bones and chest wall: No suspicious bony lesions. Overlying soft tissues appear unremarkable. IMPRESSION: No acute process. Dictated by: Lobo New M.D. on 10/02/2016 at 11:52 Approved by: Lobo New M.D. on 10/02/2016 at 11:53
[2016-10-02] MEDS ORDERED: HepLOK Flush 100 unit/mL 5 mL Inj ONE (12:05)
[2016-10-02 12:21] LABS: BASOPHILS % (AUTO) 0.7 % (0-3); EOSINOPHILS % (AUTO) 3.4 % (0-5); Mean Corpuscular Volume 96.8 fL (81-100); NEUTROPHILS % (AUTO) 66.9 % (40-74); Platelet Count 127 bil/L (150-400)
[2016-10-02] MEDS ORDERED: Sodium Bicarb (50 mEq) 8.4% 1 mEq/mL 50 mL Syringe IVPUSH ONE (12:25)
[2016-10-02] MEDS ORDERED: Calcium GLUCOnate 10% (Gm) 1 Gm/10 mL Inj IVPUSH PRN (12:25)
[2016-10-02] MEDS ORDERED: Insulin Human REGular-Omnicell 100 Unit/mL IV ONE (12:25)
[2016-10-02] MEDS ORDERED: Sodium Polystyrene Sulfonate 0.25 Gm/mL 500 mL Suspension PO ONE (12:25)
[2016-10-02] MEDS ORDERED: Albuterol 0.5% (5mg/mL) 20 mL Inhalation Solution NEB ONE (12:25)
[2016-10-02 13:14] LABS: Magnesium 2.6 mg/dL (1.6-2.6); TROPONIN T 0.131 ug/L (0.0-0.011)
[2016-10-02] MEDS ORDERED: Polyethylene Glycol (PEG) 17 Gm Powder PO PRN (14:25)
[2016-10-02] MEDS ORDERED: Alum-Mag Hydrox-Simeth 30 mL Suspension PO PRN (14:25)
[2016-10-02] MEDS ORDERED: Ondansetron 2 mg/mL 2 mL Inj IVPUSH PRN (14:25)
[2016-10-02] MEDS ORDERED: CLOP75TA28 PO (15:35)
--- NOTE | 2016-10-02 16:14 | CONS ---
[address] [address] CONSULTATION REPORT PATIENT: SUZANNE ROJAS : 1970 MR#: [id number] ADMIT: 10/02/2016 JOB ID: [id number] CORRECTED REPORT: DATE OF SERVICE: 10/02/2016 HISTORY: The patient is a very pleasant, 46-year-old, who was admitted to [facility] for chest pain and acute bradycardia. He has a history of end-stage renal disease and Nephrology consult is requested for management of his end-stage renal disease. He has a history of end-stage renal disease and normally dialyzes on Sunday, Sunday, and Sunday. His last dialysis was on Sunday. Over the weekend, he states that he was feeling well and had a barbecue where he ate a considerable amount of food. He came to dialysis this morning and states that he was about 5.5 kg over his dry weight. He also was complaining of some chest pain. His heart rate at dialysis in the upper 30s. He was subsequently transferred here from [place] dialysis unit for further evaluation. He states that this morning when he awoke and got out of bed, he was feeling well until he got to dialysis. He denies any associated nausea, vomiting, diaphoresis, dizziness, lightheadedness, or shortness of breath. The etiology of his renal failure is due to insulin independent diabetes mellitus, hypertension with hypertensive heart disease, and hypertensive nephrosclerosis. There is also a history of nonischemic cardiomyopathy, GERD, and diabetic foot ulcer for which he was admitted to [facility] in May of this year. PAST SURGICAL HISTORY: Is remarkable for placement of an AV fistula, cardiac catheterization, and surgical debridement of his foot. He is not allergic to any food or any medications. SOCIAL HISTORY: He denies use of alcohol, tobacco, or illicit drugs. FAMILY HISTORY: Noncontributory. MEDICATIONS: At time of admission included Plavix, calcium carbonate, insulin, Sensipar, and Renvela. REVIEW OF SYSTEMS: Otherwise, he states that he was feeling well over the weekend and had denied any fever, chills, nausea, vomiting, constipation, diarrhea, lower extremity edema, arthralgias, or rash. PHYSICAL EXAMINATION: Reveals an obese, 46-year-old, who was alert and oriented x3, in no distress at time of my evaluation. His blood pressure is 150/47, with a heart rate of 49. HEENT examination is remarkable for pale sclerae. Neck is supple without adenopathy, thyromegaly, or jugular venous distention. Lungs are clear though somewhat diminished bilaterally. Heart was regular in rate and rhythm. However, he was markedly bradycardic. Abdomen was distended without any tenderness, rebound, guarding, masses, or hepatosplenomegaly. Extremities did not show any evidence of any clubbing, cyanosis, or edema. Skin turgor is good and there is no evidence of any rashes. LABORATORY EXAMINATION: In the emergency department, his hemoglobin is 11.7, hematocrit 36.5. White blood cell count, red cell indices, platelet count and differential were normal. His potassium is pending at time of this dictation. Electrocardiogram revealed a junctional rhythm with occasional PVCs. Chest x-ray was unremarkable. IMPRESSION: 1. Acute hyperkalemia. 2. End-stage renal disease. 3. Bradycardia secondary to number one. 4. Diabetic renal disease. 5. Hypertension with hypertensive heart disease and hypertensive nephrosclerosis. RECOMMENDATION: The patient will be dialyzed today for 4-1/2 hours on a 2 potassium bath. We will give him his standard heparin. Try to take 3-5 L off as tolerated Once again, I would like to thank you for allowing me to participate in the care of this most pleasant and interesting patient. I will be following him closely with you. Corrected by ROBSON 10/19/16 at 12:58pm DOS
--- NOTE | 2016-10-02 17:47 | PCM.HPMED ---
Subjective Date of Service October 02, 2016 Primary Provider: Admitting Physician: Kashmir Moyer Primary Care Physician: Jeni Jenkins Pa-C Attending Physician: Kashmir Moyer Admit Status: From the Emergency Department Chief Complaint: Bradycardia, Chest Pressure History of Present Illness: Mr Vicente is a pleasant 46 year old man with history of Diabetes Type II, insulin dependent, with diabetic neuropathy and nephropathy, ESRD stage 5 on dialysis presenting to our ER from the dialysis center where he went for his regular Sunday dialysis and was found to be bradycardic and had chest pressure. EMS was called and patient was taken to the hospital where he was found to be hyperkalemic, have elevated troponins, and then treated in the ER with albuterol , insulin, calcium, and bicarbonate. He was admitted for evaluation and treatment of chest pain, hyperkalemia, elevated troponins, and to complete dialysis. He has numbness in his feet, but denies further chest pain, headache , cough, dyspnea, nausea. Review of Systems: Complete ROS is negative except as noted above in the HPI. Constitutional: Negative, except as otherwise mentioned in the history above. Ophthalmologic: Negative, except as otherwise mentioned in the history above. Cardiovascular: Negative, except as otherwise mentioned in the history above. Respiratory: Negative, except as otherwise mentioned in the history above. Gastrointestinal: Negative, except as otherwise mentioned in the history above. Genitourinary: Negative, except as otherwise mentioned in the history above. Musculoskeletal: Negative, except as otherwise mentioned in the history above. Neurological: Negative, except as otherwise mentioned in the history above. Psychiatric: Negative, except as otherwise mentioned in the history above. Hematologic/Lymphatic: Negative, except as otherwise mentioned in the history above. Allergic/Immunologic: Negative, except as otherwise mentioned in the history above. Allergies Coded Allergies: No Known Allergies (Verified , 10/02/16) Home Medications Insulin Glargine 30 units sq qhs Insulin HUmalog 10 units sq with meals Sevelamer 3200mg PO TIDWM Aspirin 81mg daily Calcium Acetate 667mg capsule, PO 2 capsules TIDWM Clopidogrel 75mg PO daily Exam Vital Signs & I/O Intake and Output- Last 8 Hour 10/06/16 Cumulative From/Thru 07:00 10/02/16 11:20 - 10/04/16 18:28 Intake Total 1866 ml Output Total 56878 ml Balance -8134 ml Intake Oral 1460 ml IV Total 406 ml Output Urine Total 0 ml Ultrafiltrate 14422 ml # Bowel Movements 0 Result Diagram: 10/04/16 0740 10/04/16 0740 PM Type 2 Diabetes, Insulin Dependent ESRD5 Diabetic neuropathy Surgical History Fistula placement for HD Family History Father: DM type 2 on HD Mother: DM type 2, CAD Social History Hx Alcohol Use: No Hx Substance Use: No Hx Tobacco Use: Yes Smoking Status: Former Smoker Living Arrangement: with Family Exam Vital Signs Vital Sign - Last Date Time Temp Pulse Resp B/P Pulse Ox O2 Delivery O2 Flow Rate FiO2 10/02/16 16:21 36.3 121 20 139/55 98 Room Air 10/02/16 12:57 3 Exam General: Alert, Oriented X3, Cooperative, No Acute Distress, Obese Head: Normocephalic, atraumatic. External ears normal. Eyes: PERRLA, EOMI. Anicteric sclerae. Mouth: Mouth Normal, Mucous Membranes Moist/[place] Neck: Neck supple with full range of motion. Chest & Lungs: Clear to auscultation bilaterally with no crackles, wheezes, or rhonchi. Cardiovascular: Regular Rate/Rhythm, Normal S1, Normal S2, No Murmurs/Rubs/ Gallops Abdomen: Non-tender, Non-distended, No masses, Normoactive bowel tones, Soft Musculoskeletal: Normal Range of Motion Extremities: No cyanosis/clubbing/edema bilaterally Neurological: Grossly Neurologically Intact, Cranial Nerves 2-12 Intact, Normal Speech Lab and Diagnostics Labs Laboratory Tests Test 10/02/16 12:10 White Blood Count 7.7th/mm3 (3.8-10.1) Red Blood Count 3.77mil/mm3 (4.40-5.80) Hemoglobin 11.7g/dL (13.8-17.2) Hematocrit 36.5% (41.0-50.0) Mean Corpuscular Volume 96.8fL (81-100) Mean Corpuscular Hemoglobin 31.0pg (27.0-35.0) Mean Corpuscular Hemoglobin Concent 32.1% (32.0-37.0) Red Cell Distribution Width 14.6% (12.3-15.4) Platelet Count 127bil/L (150-400) Neutrophils (%) (Auto) 66.9% (40-74) Lymphocytes (%) (Auto) 21.7% (14-46) Monocytes (%) (Auto) 7.0% (4-12) Eosinophils (%) (Auto) 3.4% (0-5) Basophils (%) (Auto) 0.7% (0-3) Sodium Level 131mEq/L (134-144) Potassium Level 7.1mEq/L (3.5-5.2) Chloride Level 89mEq/L (97-108) Carbon Dioxide Level 19mmol/L (18-29) Blood Urea Nitrogen 84mg/dL (6-24) Creatinine 11.34mg/dL (0.76-1.27) Estimat Glomerular Filtration Rate 5mL/min (>59) Glucose Level 118mg/dL (60-99) Calcium Level 10.5mg/dL (8.5-10.1) Phosphorus Level 6.6mg/dL (2.5-4.9) Magnesium Level 2.6mg/dL (1.6-2.6) Total Bilirubin 0.5mg/dL (0.0-1.2) Aspartate Amino Transf (AST/SGOT) 18U/L (0-50) Alanine Aminotransferase (ALT/SGPT) 13U/L (0-44) Alkaline Phosphatase 86U/L (25-150) Troponin T 0.131ug/L (0.0-0.011) Total Protein 9.0g/dL (6.4-8.4) Albumin 3.9g/dL (3.4-5.0) Thyroid Stimulating Hormone (TSH) 3.290uIU/mL (0.450-4.500) Result Diagram: 10/04/16 0740 10/04/16 0740 12-lead ECG EKG prior to arriving at hospital: Bradycardia Unable to tell if junctional or slow A-fib No QRS widening Heart rate: 35 EKG at 15:00 Atrial fib. Rate 116 ST depression V4, V5, V6. lead 2 and lead AVF Pt has no chest pain or ongoing sx New compared to EKG on jun 20 at 09:11 Cardiac Echo Impressions 06/16/16 Interpretation Summary No obvious valvular vegetations; however, image quality was rather poor. The left ventricle is normal in size. The ejection fraction is estimated to be 55-60%. There is moderate mitral annular calcification. There is no vegetation seen on the mitral valve. There is no aortic valvular vegetation. There is no tricuspid valve vegetation. There is no vegetation on the pulmonic valve. There is moderate pulmonary hypertension. The right ventricular systolic pressure is estimated at 48 mmHg assuming a right atrial pressure of 3 mm Hg. No other echocardiographic abnormalities seen. Since the prior exam from 09/02/2013, the TR has worsened and the PA pressure is increased. Otherwise no significant changes seen. Assessment & Plan 46yo man with ESRD5 on HD, DM2 insulin dependent, diabetic neuropathy, hx of healed diabetic foot wounds, last HA1c in May was 6.5 presenting with hyperkalemia, bradycardia, new onset AFib, chest pressure that manifested today before he could start his regular outpatient HD. Chest Pressure, present on admission, resolved -Chest Pressure in the context of bradycardia, hyperkalemia. Patient has chronically elevated troponins most likely from ESRD. This pressure resolved with treatment of his hyperkalemia in the ER -Serial Troponins pending Hyperkalemia, present on admission, -treated with albuterol and insulin in the ER -Patient currently on dialysis until 2100 -therefore likely to be resolved tonight End Stage Renal Disease, POA, stable - Hemodialysis on ,, schedule - dialyzing now - Continue home Sevelamer 3200mg PO TIDWM - Continue home doses of Calcium and Vitamin D3 Chronic Bradycardia, POA, resolved -Rate was 35 by EMS, one dose of Atropine given by EMS New onset Atrial Fibrillation with RVR, POA, asymptomatic -Patient is asymptomatic with rate average of 110, fluctuations from 85-120 -Monitor, if patient is asymptomatic, becomes hemodynamically unstable, rate increases above 120 average start Metoprolol 5mg IV q15min PRN -NIght team will monitor DM2 Insulin Dependent, POA, stable -May HA2c was 6.5 -Continue Lantus 30 units sq qhs, patient's home dose, as he is eating normally -Medium Dose Correction[place] Scale Insulin for mealtimes Hyponatremia, mild, POA, -likely secondary to ESRD, may correct with dialysis -asymptomatic PRN medications available for nausea, heartburn, constipation: Ondansetron, Maalox, Senna, Miralax Patient is admitted under inpatient status with expected length of stay greater than 2 midnights due to severity of presenting symptoms, risk of adverse event, and complexity of treatment plan. Pain Evaluation: Adequate Pain Control GI Prophylaxis: Not indicated VTE Prophylaxis: SCDs, Other (low platelets) Resuscitation Status: CPR: Attempt Resuscitation Attending Statement The patient was seen and examined together with Resident/House-staff on 10/02/16 and I agree with the history, exam and plan as outlined in the note above. Anatoliy Saravia DO October 02, 2016 17:47 Kashmir Moyer October 06, 2016 16:36
--- NOTE | 2016-10-02 18:03 | NUR ---
Dialysis note 4.5 hr HD tx. 5000ml net UF removed per MD orders. Received from ED, K+ = 7.1. L tunn catheter. QB 450-500 A-V, V-A. Dsg changed per protocol. See DTR for complete vitals data. Pt rested comfortably thru tx without complaints. Catheter dwelled with 1000/1 U Heparin and secured.
--- NOTE | 2016-10-02 18:07 | NUR ---
Tele/Admit to floor No reports of chest pain/pressure/discomfort. Tele AFIB 80s-110s with PACs. Trade edema in bilateral LE/feet. BP within normal limits. No reports of SOB/dizziness. SPO2 on RA 98%. Denies cough. No reports of nausea, no emesis. Hemodialysis patient, scant amount of urine production. Denies abdominal pain. Bowel tones normal. Patient received Kayexalate in ED.Patient is alert and oriented x3, THAKUR, reports bilateral total numbness of feet and toes. Good strength.
[2016-10-02] MEDS ORDERED: Glucose 40% Oral Gel 15 Gm Tube PO PRN (19:45)
[2016-10-02] MEDS: Insulin LISPRO 300 Unit/3 mL Inj SUBQ SCH (22:00)
[2016-10-02] MEDS: Insulin GLARgine 100 Unit/mL Syringe SUBQ SCH (22:08)
[2016-10-03 02:49] LABS: Mean Corpuscular Hemoglobin 30.7 pg (27.0-35.0); Mean Corpuscular Volume 96.6 fL (81-100)
[2016-10-03 03:40] LABS: TROPONIN T 1.16 ug/L (0.0-0.011)
[2016-10-03 03:58] VITALS: BP 97/54; PULSE 85; RESP 20; O2SAT 99
[2016-10-03] MEDS ORDERED: Heparin 5,000 Unit/mL Inj IVPUSH ONE (04:40)
--- NOTE | 2016-10-03 06:42 | NUR ---
Tele/Troponins Pt started the shift in A-Fib 100s-130s while pt was on dialysis. Pt converted to SR 80s-100s toward the end of the pt's dialysis in the room. 5L were pulled off during dialysis. Pt had a troponin series that showed an increase in troponin levels Addendum: 10/03/16 at 0649 by AMBAR DUKES RN Last troponin was 1.16 and was notified. ordered a STAT EKG and a CK-MB. EKG showed pt in A-Fib and CK-MG was 47.2. put pt on Cardiac Heparin Drip Protocol. At approximately 0630 lab called with the pt's baseline PTT of 32.6. Pt is now to be started on Heparin drip per protocol at 1,000Units/hr with a 5,000Unit bolus.
[2016-10-03 07:23] VITALS: BP 118/64; PULSE 88; RESP 16; O2SAT 97
[2016-10-03] MEDS: Heparin 25K Unit/500mL 0.45 NS 25,000 UNIT in IV Premix 1 EACH IV SCH (07:23)
[2016-10-03] MEDS: Insulin LISPRO 300 Unit/3 mL Inj SUBQ SCH ×4 (07:49→22:00)
[2016-10-03 11:05] VITALS: PULSE 83
[2016-10-03] MEDS: Heparin 5,000 Unit/mL Inj IVPUSH PRN ×2 (11:36→17:39)
[2016-10-03 12:51] VITALS: BP 106/59; PULSE 74; RESP 20; O2SAT 98
--- NOTE | 2016-10-03 13:29 | PCM.PNNEPH ---
Subjective Date of Service October 03, 2016 Subjective The patient feels considerably better today. He denies any further chest pain, shortness of breath, nausea, vomiting or weakness. His troponins unfortunately continued to rise. Exam Vital Signs Vital Sign - Last Date Time Temp Pulse Resp B/P Pulse Ox O2 Delivery O2 Flow Rate FiO2 10/03/16 12:51 37.0 74 20 106/59 98 Room Air 10/02/16 12:57 3 Intake and Output 10/02/16 10/02/16 10/03/16 Cumulative From/Thru 15:00 23:00 07:00 10/02/16 11:20 - 10/03/16 05:52 Intake Total 600 ml 300 ml 900 ml Output Total 5000 ml 0 ml 5000 ml Balance -4400 ml 300 ml -4100 ml Intake Oral 600 ml 300 ml 900 ml Output Urine Total 0 ml 0 ml 0 ml Ultrafiltrate 5000 ml 5000 ml # Bowel Movements 0 0 Exam Neck is supple without adenopathy, thyromegaly, or jugular venous distention. Lungs were clear to auscultation. Heart is regular rhythmic with a soft systolic murmur. Abdomen is soft without any tenderness rebound guarding masses or hepatosplenomegaly. Extremities without any evidence of any clubbing , cyanosis, or edema. Lab and Diagnostics Result Diagram: 10/03/16 0235 10/03/16 0235 12-lead ECG EKG prior to arriving at hospital: Bradycardia Unable to tell if junctional or slow A-fib No QRS widening Heart rate: 35 EKG at 15:00 Atrial fib. Rate 116 ST depression V4, V5, V6. lead 2 and lead AVF Pt has no chest pain or ongoing sx New compared to EKG on jun 20 at 09:11 Cardiac Echo Impressions 06/16/16 Interpretation Summary No obvious valvular vegetations; however, image quality was rather poor. The left ventricle is normal in size. The ejection fraction is estimated to be 55-60%. There is moderate mitral annular calcification. There is no vegetation seen on the mitral valve. There is no aortic valvular vegetation. There is no tricuspid valve vegetation. There is no vegetation on the pulmonic valve. There is moderate pulmonary hypertension. The right ventricular systolic pressure is estimated at 48 mmHg assuming a right atrial pressure of 3 mm Hg. No other echocardiographic abnormalities seen. Since the prior exam from 09/02/2013, the TR has worsened and the PA pressure is increased. Otherwise no significant changes seen. Plan Impression Impression #1 end-stage renal disease dialysis dependent #2 hypertension with hypertensive heart disease and hypertensive nephrosclerosis #3 diabetic renal disease number for rising troponin levels Recommendations #1 from my point of view he can undergo heart catheterization 1 over cardiology consult scheduled dose. I will try to arrange for dialysis around this. Otherwise she is scheduled for dialysis tomorrow. Watson Corea DO October 03, 2016 13:29
--- NOTE | 2016-10-03 15:34 | NUR ---
Social Work-initial assessment: Data:See initial assessment. Pt is a 46 y/o male who was admitted on 10/02/16 for bradycardia per H&P. Pt's insurance is [employer] and PCP is Rachel Vickers MD. EMR Reviewed. SW met with pt at bedside, SW role explained. Pt is alert and oriented x3. Pt resides at home with his brother Selwyn [phone] and sister in law in a two story home in [place]. Pt stays on one level of the house. Pt drives and does not use any DME. Pt has history with [facility] back in 2010 for wound care and has no SNF history. Pt states he goes to dialysis at [facility] [place]. SW discussed DPOA/ advanced directive, pt confirms he has never completed this, SW provided pt with information. Pt state his brother will provide transport home at discharge. Per RN notes, pt has been up independent in his room. SW provided phone number and plan on white board in room. No anticipated discharge needs. SW will continue to follow if needs arise. Assessment:Pt who is independent at baseline. Plan:Pt to discharge home when medically stable via POV. Pt to continue with dialysis. No anticipated discharge needs. SW will continue to follow if needs arise. TIERNEY Rosas Addendum: 10/03/16 at 1541 by JENNIFFER CHILDRESS SS Amended: Links added.
--- NOTE | 2016-10-03 17:39 | DRSVH ---
[facility] [address] [place] [address] Echocardiogram Report Name: SUZANNE ROJAS te: 10/03/2016 Nikolas ht: 71 in Hospital Exam Location: [facility] ht: 267 lb Gender: Male BSA: 2.4 m2 : 1970 Age: 46 yrs BP: 118/64 mmHg Reason For Study: CHEST PAIN Ordering Physician: [facility] Performed By: Emliy Lai Referring Physician: DR. SWAPNA POOLE Interpretation Summary This is a limited echocardiogram performed to evaluate ventricular function. Image quality is poor. A contrast injection of Definity was performed to improve assessment of LV function. Left ventricular ejection fraction is estimated to be 50 +/- 5%. Procedure: This is a limited echocardiogram performed to evaluate ventricular function. Image quality is poor. A contrast injection of Definity was performed to improve assessment of LV function. Contrast was injected into an intravenous site in the right arm. A total of 6 cc of contrast was given. Comparison is made with the echocardiogram of 06-16-2016. The patient was in sinus during the exam. The patient did well with the Definity Contrast. Left Ventricle: Left ventricular ejection fraction is estimated to be 50 +/ - 5%. There are no obvious focal wall motion abnormalities noted but poor endocardial definition reduces the sensitivity for the detection of such. Right Ventricle: The right ventricle is mildly dilated. The right ventricular systolic function is normal. Pericardium/ Pleura There is no pericardial effusion. Doppler Measurements & Calculations MV E max boogie MV E/A MV V2 mean MV P1/2t max boogie : 170.5 cm/sec : 2.3 : 67.7 cm/sec MV A max boogie MV mean PG : 74.4 cm/sec MVA(P1/2t): 4.3 cm2 MV P1/2t: 51.5 msec MV V2 VTI: 36.0 cm Electronically signed by: Ambrocio Francois on Reading Physician:10/03/2016 05:38 PM
--- NOTE | 2016-10-03 18:16 | NUR ---
Cardiac Heparin gtt titrated per protocol, PTT results continue to be subtherapeutic, see flow sheet/labs for rate changes and lab results. Pt to be NPO after 0000 for stress test tomorrow. Denies pain/discomfort. Tele: SR [id number].
--- NOTE | 2016-10-03 19:36 | PCM.PNMED ---
Subjective Date of Service October 03, 2016 Subjective Mr. Vicente is a very pleasant 46-year-old type II diabetic insulin-dependent with end-stage renal disease on hemodialysis, chronic bradycardia who presented from the dialysis center by EMS ER with chest pressure, hyperkalemia and bradycardia. He is in no apparent distress this morning, denies chest pressure since his arrival at the emergency room, but did experience pounding in his chest after the administration of atropine, that resolved by yesterday evening and he is comfortable now this morning. He reports a good appetite Exam Vital Signs Vital Sign - Last Date Time Temp Pulse Resp B/P Pulse Ox O2 Delivery O2 Flow Rate FiO2 10/03/16 12:51 37.0 74 20 106/59 98 Room Air 10/02/16 12:57 3 Intake and Output 10/02/16 10/02/16 10/03/16 Cumulative From/Thru 15:00 23:00 07:00 10/02/16 11:20 - 10/03/16 05:52 Intake Total 600 ml 300 ml 900 ml Output Total 5000 ml 0 ml 5000 ml Balance -4400 ml 300 ml -4100 ml Intake Oral 600 ml 300 ml 900 ml Output Urine Total 0 ml 0 ml 0 ml Ultrafiltrate 5000 ml 5000 ml # Bowel Movements 0 0 Exam General: Alert, Oriented X3, Cooperative, No Acute Distress, Obese Head: Normocephalic, atraumatic. External ears normal. Eyes: PERRLA, EOMI. Anicteric sclerae. Mouth: Mouth Normal, Mucous Membranes Moist/[place] Neck: Neck supple with full range of motion. Chest & Lungs: Clear to auscultation bilaterally with no crackles, wheezes, or rhonchi. Cardiovascular: Regular Rate/Rhythm, Normal S1, Normal S2, No Murmurs/Rubs/ Gallops Abdomen: Non-tender, Non-distended, No masses, Normoactive bowel tones, Soft Musculoskeletal: Normal Range of Motion Extremities: No cyanosis/clubbing/edema bilaterally Neurological: Grossly Neurologically Intact, Cranial Nerves 2-12 Intact, Normal Speech IVs and Medications Medications Reviewed: Medications were reviewed in detail Lab and Diagnostics Result Diagram: 10/03/16 0235 10/03/16 0235 12-lead ECG EKG prior to arriving at hospital: Bradycardia Unable to tell if junctional or slow A-fib No QRS widening Heart rate: 35 EKG at 15:00 Atrial fib. Rate 116 ST depression V4, V5, V6. lead 2 and lead AVF Pt has no chest pain or ongoing sx New compared to EKG on jun 20 at 09:11 Cardiac Echo Impressions 06/16/16 Interpretation Summary No obvious valvular vegetations; however, image quality was rather poor. The left ventricle is normal in size. The ejection fraction is estimated to be 55-60%. There is moderate mitral annular calcification. There is no vegetation seen on the mitral valve. There is no aortic valvular vegetation. There is no tricuspid valve vegetation. There is no vegetation on the pulmonic valve. There is moderate pulmonary hypertension. The right ventricular systolic pressure is estimated at 48 mmHg assuming a right atrial pressure of 3 mm Hg. No other echocardiographic abnormalities seen. Since the prior exam from 09/02/2013, the TR has worsened and the PA pressure is increased. Otherwise no significant changes seen. Assessment & Plan Mr. Vicente is a very pleasant 46-year-old type II diabetic insulin-dependent with end-stage renal disease on hemodialysis, chronic bradycardia who presented from the dialysis center by EMS ER with chest pressure, hyperkalemia and bradycardia. Chest Pressure, present on admission, resolved -Chest Pressure in the context of bradycardia, hyperkalemia. Patient has chronically elevated troponins most likely from ESRD. This pressure resolved with treatment of his hyperkalemia in the ER -Serial Troponins pending Hyperkalemia, present on admission, resolved -treated with albuterol and insulin in the ER -Patient had emergent dialysis on 10/02/2016 here in the hospital -Hyperkalemia resolved after dialysis Elevated troponins, present on admission, -Exercise stress test with Lexiscan backup on 10/04/2016 -We will consult cardiology with the results of this test, whether the patient needs inpatient treatment or outpatient follow-up will be determined. End Stage Renal Disease, POA, stable - Hemodialysis on ,, schedule - dialyzing on schedule here - Continue home Sevelamer 3200mg PO TIDWM - Continue home doses of Calcium and Vitamin D3 - We appreciate Dr. Corea's consult. He indicates that this patient is a good candidate for heart catheterization if that is seen to be necessary. Chronic Bradycardia, POA, resolved -Rate was 35 by EMS, one dose of Atropine given by EMS New onset Atrial Fibrillation with RVR, POA, asymptomatic -Patient has no history of atrial fibrillation, does have history of chronic bradycardia that has been asymptomatic in the past, no past treatment with atropine -Patient is asymptomatic with rate average of 110, fluctuations from 85-120 -Patient converted to normal sinus rhythm in the 80s in the evening of 2016 without intervention DM2 Insulin Dependent, POA, stable -May HA2c was 6.5 -Continue Lantus 30 units sq qhs, patient's home dose, as he is eating normally -Medium Dose Correctional Scale Insulin for mealtimes Hyponatremia, mild, POA, -likely secondary to ESRD, may correct with dialysis -asymptomatic PRN medications available for nausea, heartburn, constipation: Ondansetron, Maalox, Senna, Miralax Patient is admitted under inpatient status with expected length of stay greater than 2 midnights due to severity of presenting symptoms, risk of adverse event, and complexity of treatment plan. GI Prophylaxis: Not indicated VTE Prophylaxis: SCDs, Other (low platelets) Resuscitation Status: CPR: Attempt Resuscitation Attending Statement The patient was seen and examined together with Resident/House-staff on 10/03/16 and I agree with the history, exam and plan as outlined in the note above. Anatoliy Saravia DO October 03, 2016 19:36 Kashmir Moyer October 06, 2016 16:56 PRN medications available for nausea, heartburn, constipation: Ondansetron, Maalox, Senna, Miralax Patient is admitted under inpatient status with expected length of stay greater than 2 midnights due to severity of presenting symptoms, risk of adverse event, and complexity of treatment plan. GI Prophylaxis: Not indicated VTE Prophylaxis: SCDs, Other (low platelets) Resuscitation Status: CPR: Attempt Resuscitation Anatoliy Saravia DO October 03, 2016 19:36
[2016-10-03 20:00] VITALS: PULSE 84
[2016-10-03 21:02] VITALS: BP 128/71; PULSE 65; RESP 16; O2SAT 97
[2016-10-03] MEDS: Insulin GLARgine 100 Unit/mL Syringe SUBQ SCH (21:26)
[2016-10-04] VITALS (7 sets, daily range): BP systolic 137–150; BP diastolic 64–84; PULSE 71–106; RESP 20–22; O2SAT 95–99
[2016-10-04] MEDS: Heparin 5,000 Unit/mL Inj IVPUSH PRN (01:19)
[2016-10-04] MEDS: Heparin 25K Unit/500mL 0.45 NS 25,000 UNIT in IV Premix 1 EACH IV SCH (05:09)
--- NOTE | 2016-10-04 06:40 | NUR ---
Cardiac Pt's last PTT was 37.7 and per protocol heparin was increased and a bolus dose was given. Pt ended up losing IV site this morning at approximately 0508. An attempt to get another IV started using ultrasound was attempted and unsuccessful. IV therapy has been called to get an IV started on the pt prior to the pt going to take his stress test.
[2016-10-04 07:56] LABS: Mean Corpuscular Hemoglobin 31.1 pg (27.0-35.0); Mean Corpuscular Volume 97.7 fL (81-100)
[2016-10-04] MEDS: Insulin LISPRO 300 Unit/3 mL Inj SUBQ SCH ×3 (08:00→17:30)
[2016-10-04 08:54] LABS: TROPONIN T 2.82 ug/L (0.0-0.011)
[2016-10-04] MEDS ORDERED: METO25TA6 PO (15:31)
[2016-10-04] MEDS ORDERED: WARF2.5T82 PO (15:31)
[2016-10-04] MEDS ORDERED: LIP40 PO (15:31)
--- NOTE | 2016-10-04 15:38 | PCM.DIMED ---
ManjitAnatoliy Osei BRISCOE 10/04/16 1538: Discharge Instructions Date of Service October 04, 2016 Dates of Hospitalization October 02, 2016 at 15:00 Discharge Diagnosis Discharge Diagnosis End Stage Renal Disease, New Onset Atrial Fibrillation, IDDM2, Hyperkalemia Medication Instructions Metoprolol Tartrate 25mg PO BID Warfarin 2.5mg PO daily Stop Aspirin Continue other home medications as before Test Results Laboratory Tests Test 10/03/16 16:45 10/03/16 22:45 10/04/16 07:40 Activated Partial Thromboplast Time 33.4sec (22.8-33.0) 37.7sec (22.8-33.0) 25.2sec (22.8-33.0) White Blood Count 5.1th/mm3 (3.8-10.1) Red Blood Count 3.99mil/mm3 (4.40-5.80) Hemoglobin 12.4g/dL (13.8-17.2) Hematocrit 39.0% (41.0-50.0) Mean Corpuscular Volume 97.7fL (81-100) Mean Corpuscular Hemoglobin 31.1pg (27.0-35.0) Mean Corpuscular Hemoglobin Concent 31.8% (32.0-37.0) Red Cell Distribution Width 14.9% (12.3-15.4) Platelet Count 131bil/L (150-400) Sodium Level 134mEq/L (134-144) Potassium Level 6.5mEq/L (3.5-5.2) Chloride Level 91mEq/L (97-108) Carbon Dioxide Level 21mmol/L (18-29) Blood Urea Nitrogen 63mg/dL (6-24) Creatinine 9.71mg/dL (0.76-1.27) Estimat Glomerular Filtration Rate 6mL/min (>59) Glucose Level 137mg/dL (60-99) Calcium Level 10.4mg/dL (8.5-10.1) Total Bilirubin 0.4mg/dL (0.0-1.2) Aspartate Amino Transf (AST/SGOT) 29U/L (0-50) Alanine Aminotransferase (ALT/SGPT) 14U/L (0-44) Alkaline Phosphatase 77U/L (25-150) Troponin T 2.82ug/L (0.0-0.011) Total Protein 8.4g/dL (6.4-8.4) Albumin 3.8g/dL (3.4-5.0) Diet Diabetic Activity No restrictions Call your provider Fever or Chills, Shortness of breath, Bleeding, Chest pain, Vomitting, Excessive diarrhea, Weakness (unilateral) Patient Instructions Start Warfarin 2.5mg by mouth daily, Metoprolol Tartrate 25mg by mouth twice daily, and Atorvastatin 40mg by mouth daily. Dr Valdez the photocomposing machine operator who looked at your records is willing to see you for preparing for a kidney transplant if his services are needed. He is with [facility]. Warfarin is a drug that needs to be monitored twice a week as the correct dose is found to make it therapeutic for the prevention of clots. This is done at the [facility]. They do a quick blood test and adjust the dose of Warfarin. Follow-up plan [facility] on Sunday and Sunday to establish. Please call your primary care provider to get the number for the clinic in your area. See Primary care, Rachel Johnson, next week. Follow-up with PCP in: 1 week Kashmir Moyer 10/06/16 1701: Anatoliy Saravia DO October 04, 2016 15:38 Kashmir Moyer October 06, 2016 17:01
--- NOTE | 2016-10-04 17:13 | PCM.PNNEPH ---
Subjective Date of Service October 04, 2016 Subjective Patient continues to do well however his potassium is once again elevated. He denies any chest pain, shortness of breath and is scheduled to be discharged after dialysis today. This morning his potassium is 6.5. Exam Vital Signs Vital Sign - Last Date Time Temp Pulse Resp B/P Pulse Ox O2 Delivery O2 Flow Rate FiO2 10/04/16 16:38 106 20 150/64 96 Room Air 10/04/16 08:05 37.0 10/02/16 12:57 3 Intake and Output 10/03/16 10/03/16 10/04/16 Cumulative From/Thru 15:00 23:00 07:00 10/02/16 11:20 - 10/04/16 06:39 Intake Total 204 ml 202 ml 1306 ml Output Total 0 ml 5000 ml Balance 204 ml 202 ml -3694 ml Intake Oral 0 ml 900 ml IV Total 204 ml 202 ml 406 ml Output Urine Total 0 ml 0 ml Ultrafiltrate 5000 ml # Bowel Movements 0 Exam Lungs are clear to auscultation. Heart is regular and rhythmical with soft systolic murmur. Abdomen soft without any tenderness or rebound guarding masses or hepatosplenomegaly. Extremities without any evidence of any edema. Lab and Diagnostics Result Diagram: 10/04/16 0740 10/04/16 0740 12-lead ECG EKG prior to arriving at hospital: Bradycardia Unable to tell if junctional or slow A-fib No QRS widening Heart rate: 35 EKG at 15:00 Atrial fib. Rate 116 ST depression V4, V5, V6. lead 2 and lead AVF Pt has no chest pain or ongoing sx New compared to EKG on jun 20 at 09:11 Cardiac Echo Impressions 06/16/16 Interpretation Summary No obvious valvular vegetations; however, image quality was rather poor. The left ventricle is normal in size. The ejection fraction is estimated to be 55-60%. There is moderate mitral annular calcification. There is no vegetation seen on the mitral valve. There is no aortic valvular vegetation. There is no tricuspid valve vegetation. There is no vegetation on the pulmonic valve. There is moderate pulmonary hypertension. The right ventricular systolic pressure is estimated at 48 mmHg assuming a right atrial pressure of 3 mm Hg. No other echocardiographic abnormalities seen. Since the prior exam from 09/02/2013, the TR has worsened and the PA pressure is increased. Otherwise no significant changes seen. Plan Impression Impression #1 acute hyperkalemia #2 end-stage renal disease #3 diabetic nephropathy Recommendations #1 the patient was for a half-hour sono max dialyzer with a 1 potassium bath for 2 hours and a 2 potassium bath for 2 hours, Watson Corea DO October 04, 2016 17:13
--- NOTE | 2016-10-04 18:22 | PCM.DC.MED ---
Discharge Summary Date of Service October 04, 2016 Dates of Hospitalization Date of Hospital Admission October 02, 2016 at 15:00 Date of Discharge: October 04, 2016 Providers: Admitting Physician: Kashmir Moyer Primary Care Physician: Diane Richards Pa-C Attending Physician: Kashmir Moyer Diagnosis at Time of Discharge Diagnosis at Time of Discharge End Stage Renal Disease, New Onset Atrial Fibrillation, IDDM2, Hyperkalemia Consultations Watson Corea D.O., nephrology Federico Valdez M.D., cardiology Procedures XRay, CTs & MRIs Chest x-ray with no acute cardiopulmonary findings ECG 12 Lead EKG prior to arriving at hospital: Bradycardia Unable to tell if junctional or slow A-fib No QRS widening Heart rate: 35 EKG at 15:00 Atrial fib. Rate [address] ST depression V4, V5, V6. lead 2 and lead AVF Pt has no chest pain or ongoing sx New compared to EKG on jun 20 at 09:11 Cardiac Echo Impression 06/16/16 Interpretation Summary No obvious valvular vegetations; however, image quality was rather poor. The left ventricle is normal in size. The ejection fraction is estimated to be 55-60%. There is moderate mitral annular calcification. There is no vegetation seen on the mitral valve. There is no aortic valvular vegetation. There is no tricuspid valve vegetation. There is no vegetation on the pulmonic valve. There is moderate pulmonary hypertension. The right ventricular systolic pressure is estimated at 48 mmHg assuming a right atrial pressure of 3 mm Hg. No other echocardiographic abnormalities seen. Since the prior exam from 09/02/2013, the TR has worsened and the PA pressure is increased. Otherwise no significant changes seen. Other Diagnostics 2016 pharmacological stress test with adenosine at the [facility] Impression: 1. Fixed defects in the lateral and inferior burgos. No convincing reversible perfusion defects. 2. normal ventricular ejection fraction is 61%. 3. No focal wall motion abnormality. 4. Normal left ventricular cavity size no change with stress Brief History Mr Vicente is a pleasant 46 year old man with history of Diabetes Type II, insulin dependent, with diabetic neuropathy and nephropathy, ESRD stage 5 on dialysis presenting to our ER from the dialysis center where he went for his regular Sunday dialysis and was found to be bradycardic and had chest pressure. EMS was called and patient was taken to the hospital where he was found to be hyperkalemic, have elevated troponins, and then treated in the ER with albuterol , insulin, calcium, and bicarbonate. He was admitted for evaluation and treatment of chest pain, hyperkalemia, elevated troponins, and to complete dialysis. He has numbness in his feet, but denies further chest pain, headache , cough, dyspnea, nausea. Hospital Course Mr. Vicente is a very pleasant 46-year-old type II diabetic insulin-dependent with end-stage renal disease on hemodialysis, chronic bradycardia who presented from the dialysis center by EMS ER with chest pressure, hyperkalemia and bradycardia. Chest Pressure, present on admission, resolved -Chest Pressure in the context of bradycardia, hyperkalemia. Patient has chronically elevated troponins most likely from ESRD. This pressure resolved with treatment of his hyperkalemia in the ER -Rising serial troponins attributed by Dr. Valdez to Infarct tissue ischemia relating to the fixed defects in the lateral and inferior burgos seen in the pharmacological stress test in August. Hyperkalemia, present on admission, resolved -treated with albuterol and insulin in the ER -Patient had emergent dialysis on 10/02/2016 here in the hospital -Hyperkalemia resolved after dialysis Coronary artery disease, present on admission. Stable -Continue atorvastatin and Plavix Elevated troponins, present on admission, -No stress test was done here, as above elevated troponins attributed to infarct tissue ischemia End Stage Renal Disease, POA, stable - Hemodialysis on ,,F schedule - dialyzing on schedule here - Continue home Sevelamer 3200mg PO TIDWM - Continue home doses of Calcium and Vitamin D3 - We appreciate Dr. Corea's consult. Chronic Bradycardia, POA, resolved -Rate was 35 by EMS, one dose of Atropine given by EMS New onset Atrial Fibrillation with RVR, POA, RVR resolved -Patient has no history of atrial fibrillation, but has stayed in this rhythm for over 24 hours at a normal rate in the 70s and 80s -Patient is asymptomatic -Warfarin therapy at 2.5 mg daily initiated before discharge on 10/04/2016 DM2 Insulin Dependent, POA, stable -May HA2c was 6.5 -Continue Lantus 30 units sq qhs, patient's home dose, as he is eating normally -Medium Dose Correctional Scale Insulin for mealtimes Hyponatremia, mild, POA, -likely secondary to ESRD, may correct with dialysis -asymptomatic PRN medications available for nausea, heartburn, constipation: Ondansetron, Maalox, Senna, Miralax Patient is admitted under inpatient status with expected length of stay greater than 2 midnights due to severity of presenting symptoms, risk of adverse event, and complexity of treatment plan. Exam Vital Signs (Last) Date Time Temp Pulse Resp B/P Pulse Ox O2 Delivery O2 Flow Rate FiO2 10/04/16 16:38 106 20 150/64 96 Room Air 10/04/16 08:05 37.0 10/02/16 12:57 3 Exam General: Alert, Oriented X3, Cooperative, No Acute Distress, Obese Head: Normocephalic, atraumatic. External ears normal. Eyes: PERRLA, EOMI. Anicteric sclerae. Mouth: Mouth Normal, Mucous Membranes Moist/[place] Neck: Neck supple with full range of motion. Chest & Lungs: Clear to auscultation bilaterally with no crackles, wheezes, or rhonchi. Cardiovascular: Regular Rate/Rhythm, Normal S1, Normal S2, No Murmurs/Rubs/ Gallops Abdomen: Non-tender, Non-distended, No masses, Normoactive bowel tones, Soft Musculoskeletal: Normal Range of Motion Extremities: No cyanosis/clubbing/edema bilaterally Neurological: Grossly Neurologically Intact, Cranial Nerves 2-12 Intact, Normal Speech Test 10/02/16 12:10 10/03/16 02:35 10/04/16 07:40 10/04/16 15:12 Neutrophils (%) (Auto) 66.9% (40-74) Lymphocytes (%) (Auto) 21.7% (14-46) Monocytes (%) (Auto) 7.0% (4-12) Eosinophils (%) (Auto) 3.4% (0-5) Basophils (%) (Auto) 0.7% (0-3) Phosphorus Level 6.6mg/dL (2.5-4.9) Magnesium Level 2.6mg/dL (1.6-2.6) Thyroid Stimulating Hormone (TSH) 3.290uIU/mL (0.450-4.500) Total Creatine Kinase 421U/L (21-232) Creatine Kinase MB 47.2ng/mL (0.0-10.4) Creatine Kinase MB % 11.2% (0.0-5.0) White Blood Count 5.1th/mm3 (3.8-10.1) Red Blood Count 3.99mil/mm3 (4.40-5.80) Hemoglobin 12.4g/dL (13.8-17.2) Hematocrit 39.0% (41.0-50.0) Mean Corpuscular Volume 97.7fL (81-100) Mean Corpuscular Hemoglobin 31.1pg (27.0-35.0) Mean Corpuscular Hemoglobin Concent 31.8% (32.0-37.0) Red Cell Distribution Width 14.9% (12.3-15.4) Platelet Count 131bil/L (150-400) Sodium Level 134mEq/L (134-144) Potassium Level 6.5mEq/L (3.5-5.2) Chloride Level 91mEq/L (97-108) Carbon Dioxide Level 21mmol/L (18-29) Blood Urea Nitrogen 63mg/dL (6-24) Creatinine 9.71mg/dL (0.76-1.27) Estimat Glomerular Filtration Rate 6mL/min (>59) Glucose Level 137mg/dL (60-99) Calcium Level 10.4mg/dL (8.5-10.1) Total Bilirubin 0.4mg/dL (0.0-1.2) Aspartate Amino Transf (AST/SGOT) 29U/L (0-50) Alanine Aminotransferase (ALT/SGPT) 14U/L (0-44) Alkaline Phosphatase 77U/L (25-150) Troponin T 2.82ug/L (0.0-0.011) Total Protein 8.4g/dL (6.4-8.4) Albumin 3.8g/dL (3.4-5.0) Activated Partial Thromboplast Time 38.1sec (22.8-33.0) Discharge Medications Discharge Medications Atorvastatin (Lipitor) 40 Mg Tablet 40 MG PO DAILY Prescribed by: FREDDY BEAULIEU DO Calcium Acetate (Calcium Acetate) 667 Mg Capsule 2 EACH PO TIDWM (Reported) Cholecalciferol (Vitamin D3) (Vitamin D3) 1,000 Unit Tab.chew 1,000 UNIT PO DAILY (Reported) Clopidogrel (Clopidogrel) 75 Mg Tablet 75 MG PO DAILY (Reported) Insulin Glargine (Lantus U100 Insulin Vial) 100 Unit/Ml Vial 30 UNIT SUBQ HS ( Reported) Insulin Human Lispro (HumaLOG U100 Insulin Vial) 100 Unit/Ml Unit 10 UNITS SQ TIDWM (Reported) Metoprolol Tartrate (Metoprolol Tartrate) 25 Mg Tablet 25 MG PO BID Prescribed by: FREDDY BEAULIEU DO Sevelamer Carbonate (Renvela) 800 Mg Tablet 3,200 MG PO TIDWM (Reported) Warfarin Sodium (Warfarin Sodium) 2.5 Mg Tablet 2.5 MG PO DAILY Prescribed by: FREDDY BEAULIEU DO Additional med instructions Metoprolol Tartrate 25mg PO BID Warfarin 2.5mg PO daily Stop Aspirin Continue other home medications as before Followup Plan Follow-up plan [facility] on Sunday and Sunday to establish. Please call your primary care provider to get the number for the clinic in your area. See Primary care, Rachel Johnson, next week. Discharge Diet: Diabetic Discharge Activity: No restrictions Patient Instructions Start Warfarin 2.5mg by mouth daily, Metoprolol Tartrate 25mg by mouth twice daily, and Atorvastatin 40mg by mouth daily. Dr Valdez the long term care phlebotomist who looked at your records is willing to see you for preparing for a kidney transplant if his services are needed. He is with [facility]. Warfarin is a drug that needs to be monitored twice a week as the correct dose is found to make it therapeutic for the prevention of clots. This is done at the [facility]. They do a quick blood test and adjust the dose of Warfarin. Follow-up Provider: DIANE RICHARDS PA-C Follow-up with PCP in: 1 week Time spent 35 min Attending Statement The patient was seen and examined together with Resident/House-staff on 10/04/16 and I agree with the history, exam and plan as outlined in the note above. copies to: DIANE RICHARDS PA-C, Alan C DO October 04, 2016 18:21 Kashmir Moyer October 19, 2016 17:09
--- NOTE | 2016-10-04 19:25 | NUR ---
Dialysis note: 4 1/2 hrs tx 5000 ml net UF Left catheter, dsg dry and intact Pls see DTR for VS details Qb 450-500 w/ cath limbs reversed A-V V-A due to poor cath function No extra heparin given, already on heparin drip O2 @ 2L via NC on during tx Tolerated tx, slept at intervals Catheter flushed, heparin dwelled and secured Stable condition at end of tx Report given to Perri DELGADO
--- NOTE | 2016-10-04 19:46 | NUR ---
Discharge Pt was DC'd at 1928 after the completion of the pt's dialysis treatment. Per report from the tmd teacher 5L was removed during the dialysis treatment. Pt's tele prior to DC was SR and pt SpO2 >92% on RA. Pt's right hand IV was removed intact and a dressing was put in place. Pt had all belongings that were in the room when the pt left. Pt was educated on the new prescriptions that the MD had ordered for him to take and pt signed DC paperwork. Pt was walked off the unit where the pt's transportation was waiting for him.
== END 2016-10-04 19:46 | disposition home or self-care (01) | DRG 308 ==
LOC: SED 11:03 → PCC 15:00
PROVIDERS: ADMIT Internal Medicine; ATTEND Internal Medicine
PROC: 5A1D60Z (ICD-10-PCS; principal; 2016-10-02)
DX: I48.91 Unspecified atrial fibrillation (principal); N18.6 End stage renal disease; E87.1 Hypo-osmolality and hyponatremia; I13.11 Hypertensive heart and chronic kidney disease without heart failure, with stage 5 chronic kidney disease, or end stage renal disease; R00.1 Bradycardia, unspecified; Z79.4 Long term (current) use of insulin; E11.40 Type 2 diabetes mellitus with diabetic neuropathy, unspecified; E87.5 Hyperkalemia; Z99.2 Dependence on renal dialysis; K21.9 Gastro-esophageal reflux disease without esophagitis; Z87.891 Personal history of nicotine dependence; E11.22 Type 2 diabetes mellitus with diabetic chronic kidney disease; I25.10 Atherosclerotic heart disease of native coronary artery without angina pectoris

== ENCOUNTER 2016-11-30 00:18 | Inpatient (IN) | payer MEDICARE, MEDICAID ==
[~2016-11-30] VITALS: Ht 182.9 cm; Wt 125.4 kg
[~2016-11-30 00:18] MED LIST changes: -ACET325C PO; -ASPI-973 PO; +CLOP75TA28 PO; +LIP40 PO; +METO25TA6 PO; +WARF2.5T82 PO
[2016-11-30 11:17] VITALS: BP 136/61; PULSE 67; RESP 20; O2SAT 99
[2016-11-30] MEDS ORDERED: CeFAZolin 2 Gm/50 mL D5W Duplex Bag IV ONE (13:18)
[2016-11-30] MEDS ORDERED: Ondansetron 2 mg/mL 2 mL Inj IVPUSH PRN (14:55)
[2016-11-30] MEDS ORDERED: Polyethylene Glycol (PEG) 17 Gm Powder PO PRN (14:55)
[2016-11-30] MEDS ORDERED: Alum-Mag Hydrox-Simeth 30 mL Suspension PO PRN (14:55)
--- NOTE | 2016-11-30 15:26 | NUR ---
[facility] Admit to [facility] at 1100 for fistulogram. No family at bedside. Patient denies pain. HL placed and labs obtained. Potassium 6.8. MD notified. determined to place temporary dialysis catheter today for immediate dialysis. Fistulogram to follow tomorrow. History and medications reviewed. Pre-procedure teaching done and questions answered. Patient to tutorial laboratory supervisor at 1530. Report called to receiving RN.
[2016-11-30] MEDS ORDERED: Heparin 10,000 Unit/1,000 mL NS Premix IV ONE (15:29)
[2016-11-30] MEDS ORDERED: fentaNYL-PF 50 mCg/mL 2 mL Inj ONE (15:29)
[2016-11-30] MEDS ORDERED: Heparin 1,000 Unit/mL 10 mL Inj ONE (15:48)
[2016-11-30 16:05] VITALS: BP 168/103; PULSE 65; RESP 22; O2SAT 98
[2016-11-30 16:24] VITALS: BP 132/84; PULSE 67
--- NOTE | 2016-11-30 16:28 | DRSVH ---
PROCEDURE: 1. left internal jugular vein non-tunneled temporary hemodialysis catheter placement. 2. Ultrasound guidance for left internal jugular vein access. 3. Conscious sedation x 20 minutes. INDICATIONS: Renal failure. COMPARISON: None. Technique: Informed, written consent from the patient was obtained prior to the procedure. Patient wa s brought to the angiography suite, and conscious sedation was administered intravenously by jail staff, while continuous cardiorespiratory monitoring was performed. Maximal sterile barrier t echnique, hand hygiene, skin preparation, and sterile ultrasound technique was followed. A mask, ster ile gown, sterile gloves, a large sterile sheet, hand hygiene, and 2% chlorhexidine or iodine was uti lized for skin antisepsis. The left neck and chest wall were prepped and draped sterilely, and infuse d with lidocaine. The left internal jugular vein was accessed antegrade under sonographic guidance wi th a micropuncture set. An 035 J-wire was advanced into the inferior vena cava. The venotomy tract w as sequentially dilated. A double-lumen temporary hemodialysis catheter was advanced over a wire. Tania quate flow was obtained through both lumens of the catheter. The catheter was then fastened to the sk in surface. Fluoroscopy time: FINDINGS: The left internal jugular vein is patent by ultrasound. Following hemodialysis catheter jeanne cement, the tip of the catheter is at the cavoatrial junction. IMPRESSION: Left internal jugular vein temporary hemodialysis catheter placement using fluoroscopic a nd ultrasound guidance. Dictated by: Lobo New M.D. on 11/30/2016 at 16:26 Approved by: Lobo New M.D. on 11/30/2016 at 16:26
[2016-11-30 16:30] VITALS: BP 138/89; PULSE 69; RESP 18; O2SAT 99
[2016-11-30] MEDS: Heparin 5,000 Unit/mL Inj SUBQ SCH (16:30)
--- NOTE | 2016-11-30 16:50 | NUR ---
YURI Patient to [facility] room 244 for dialysis post tender labor temporary dialysis catheter placement at 1600. Patient accompanied by YURI RN for initial conscious sedation recovery. Patient given versed 1 mg and fentanyl 50 mcg in tender labor for procedure. Patient awake, A&O X 3 and appropriate. Denies pain, only discomfort if feeling hungry. BG 88. Taking sip PO. Report to receiving RN.
[2016-11-30] MEDS ORDERED: Glucose 40% Oral Gel 15 Gm Tube PO PRN (18:05)
--- NOTE | 2016-11-30 18:15 | PCM.HPMED ---
Subjective Date of Service Nov 30, 2016 Primary Provider: Admitting Physician: Thomas Waters MD Primary Care Physician: Rachel Lacy Attending Physician: Thomas Waters MD Chief Complaint: Hyperkalemia History of Present Illness: Mr. 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 During his wait a blood draw took place that showed his potassium was 6.8 and it was decided that he needed a temporary dialysis catheter and directly admitted for urgent dialysis. He denies being symptomatic at all, citing no nausea/vomiting/diarrhea , palpitations, or chest pain. He reports his last A1C was around 5.9 and that he follows a renal diet "pretty closely". Review of Systems: A comprehensive review of systems was conducted with the patient and found to be negative except as above in the History of Present Illness. Allergies Coded Allergies: No Known Allergies (Verified , 10/02/16) Home Medications Insulin Glargine 30 units sq qhs Insulin Humalog 10 units sq with meals Sevelamer 3200mg PO TIDWM Aspirin 81mg daily Calcium Acetate 667mg capsule, PO 2 capsules TIDWM Clopidogrel 75mg PO daily Warfarin 2.5mg PO daily PMH Diabetes Mellitus Type 2 with Neuropathy ESRD on Dialysis, MWF Hypertension Surgical History Left Arm AV Fistula Family History Father: at 68 from complications of ESRD on dialysis secondary to Diabetes Mother: Diabetes, Pacemaker for unknown reason Social History Hx Alcohol Use: No (quit 17 years ago) Hx Substance Use: No Hx Tobacco Use: No Smoking Status: Former Smoker (1 ppd for 20 years; quit 6 years ago) Living Arrangement: with Family Exam Vital Signs Vital Sign - Last Date Time Temp Pulse Resp B/P Pulse Ox O2 Delivery O2 Flow Rate FiO2 11/30/16 16:30 69 18 138/89 99 Room Air 11/30/16 11:17 36.6 Exam General: Obese [place] male being dialyzed in NAD HEENT: NCAT. EOMI, PERRLA. Mucous membranes pink and moist without cobblestoning. Neck: Supple with full ROM. JVD, thyromegaly difficult to assess due to body habitus CV: RRR without murmur/rubs/gallop Pulm: CTA bilaterally, no wheezes/rales/rhonchi. Normal respiratory effort without accessory muscle use. Abd: Soft, obese. Nontender throughout. No organomegaly appreciated. Extremities: Chronic venous stasis discoloration in bilateral LE. No cyanosis/ clubbing/edema Neuro: A&Ox3. CN 2-12 intact, muscle strength normal in all extremities. No focal deficits. Psych: Normal mood and affect. Lab and Diagnostics Result Diagram: 11/30/16 1313 X-Rays, CTs and MRIs Temporary Dialysis Catheter Placement IMPRESSION: Left internal jugular vein temporary hemodialysis catheter placement using fluoroscopic and ultrasound guidance. Dictated by: Lobo New M.D. on 11/30/2016 at 16:26 Approved by: Lobo New M.D. on 11/30/2016 at 16:26 Assessment & Plan Mr. Vicente with history of diabetes mellitus type 2 with neuropathy, ESRD on hemodialysis MWF, and reported hypertension was directly admitted from Radiology for hyperkalemia while waiting for a fistulogram. Hyperkalemia, present on admission, acute. Ongoing. - Potassium 6.8 on admission - Patient currently being urgently dialyzed in [facility] - Metabolic panel ordered for reevaluation post dialysis - Metabolic panel ordered for the morning 12/01 End Stage Renal Disease requiring Hemodialysis MWF, present on admission, chronic. Ongoing. - Patients right arm AV fistula is clotted off, was scheduled for fistulogram 11/30 prior to dialysis session - Temporary dialysis catheter placed for urgent dialysis session 11/30 - Continue dialysis schedule while admitted - Continue home Sevelamer, Calcium, Vitamin D3 - Metabolic panels post dialysis 11/30, morning 12/01 Diabetes Mellitus Type 2, insulin using with neuropathy, present on admission, chronic. Ongoing. - Patient says his blood sugars are well controlled and last A1C was around 5.9 in August - A1c ordered, pending - Continue home Lantus 30 units at night - Medium dose correctional and nutritional scale ordered with meals PRN Acetaminophen for mild pain, headache, and fever when necessary. Bowel regimen Senna and MiraLAX scheduled when needed. Zofran when necessary for nausea and vomiting. SubQ heparin held for now, depending on INR. High-risk medications: Warfarin Patient Status: Patient is admitted to inpatient service with length of stay expected to exceed > 2 midnights due to complexity of presentation, risk of adverse effects, and response to treatment plan. Pain Evaluation: Adequate Pain Control GI Prophylaxis: Not indicated VTE Prophylaxis: Other (patient on warfarin, INR pending) Resuscitation Status: CPR: Attempt Resuscitation Attending Statement The patient was seen and examined together with Dr. Linn on 11/30/2016 and I agree with the history, exam and plan as outlined in the note above. . Robin Linn DO Nov 30, 2016 18:15 Thomas Waters MD Dec 03, 2016 16:17
[2016-11-30 18:28] VITALS: PULSE 75
--- NOTE | 2016-11-30 18:36 | CONS ---
[address] [address] CONSULTATION REPORT PATIENT: SUZANNE ROJAS : 1970 MR#: [id number] ADMIT: 11/30/2016 JOB ID: [id number] NEPHROLOGY CONSULTATION: DATE OF SERVICE: 11/30/2016 REQUESTING PHYSICIAN: Thomas Waters MD REASON FOR CONSULTATION: Management of end-stage renal disease and hyperkalemia. CHIEF COMPLAINT: Clotted AV graft and hyperkalemia. PRESENT ILLNESS: This is a 46-year-old male with significant past medical history of end-stage renal disease, on hemodialysis every Sunday, Sunday, and Sunday, type 2 diabetes, hypertension, who came in for declotting of AV graft. The patient was seen by Dr. New today prior to the procedure. He was found to have potassium of 6.8. Nephrology was consulted to perform dialysis emergently. His last dialysis was done yesterday. He was found to have clotted AV graft. He was instructed to go to the Radiology Department for declotting under interventional radiologist. Currently patient is on hemodialysis using one potassium bath. He has no chest pain. No shortness of breath. No fever, no chills. He goes to dialysis unit in [place]. His ammonium sulfate operator is Dr. Estuardo Menendez. PAST MEDICAL HISTORY: 1. End-stage renal disease, on hemodialysis every Sunday, Sunday, and Sunday. 2. History of malfunctioning AV graft, status post revision and new graft placement. 3. History of MSSA bacteremia. 4. History of left foot osteomyelitis. 5. Hypertension with hypertensive nephrosclerosis. 6. Type 2 diabetes with diabetic nephropathy. 7. Anemia of chronic kidney disease. 8. Renal osteodystrophy. 9. Coronary artery disease. 10. Peripheral vascular disease. 11. Obesity. PAST SURGICAL HISTORY: 1. Status post AV fistula creation, status post AV graft placement. 2. Status post cardiac catheterization. 3. Status post debridement of the foot. SOCIAL HISTORY: Denies current use of alcohol, tobacco, or illicit drugs. FAMILY HISTORY: Noncontributory. MEDICATIONS: Reviewed. REVIEW OF SYSTEMS: Fourteen point review of system was performed. PHYSICAL EXAMINATION: Vitals: Temperature 36.6, pulse 69, respiratory 18, blood pressure 138/89, O2 sat 99% on room air. General appearance: Awake, alert, oriented x3. No acute distress. HEENT: No pallor. No jaundice. No JVD. No lymphadenopathy. No thyroid gland enlargement. Heart: Regular rhythm. Normal S1, S2. No murmurs, rubs, or gallops. Lungs: Clear to auscultation bilaterally. Abdomen is soft, active bowel sounds. Nontender. Nondistended. No hepatosplenomegaly. Extremities: No significant lower extremity edema. Chronic skin changes noted. LABORATORY: Potassium 6.8. ASSESSMENT: 1. Acute hyperkalemia. 2. End-stage renal disease, on hemodialysis. 3. Malfunctioning atriovenous graft. 4. Type 2 diabetes with renal manifestation. 5. Hypertension with hypertensive nephrosclerosis. 6. Coronary artery disease. PLAN: We will run short dialysis today 3 hours, using one potassium bath ultrafiltration 2 L. The patient will have declotting procedure tomorrow. Afterwards he will have another hemodialysis. If he can make it to his dialysis center, he will go there around noontime. Otherwise we can arrange dialysis again in the hospital. Thank you for allowing me to participate in the care of your patient. CLAIRE
[2016-11-30 19:12] LABS: INR 1.18 ratio
[2016-11-30] MEDS ORDERED: WARF2.5T82 PO (19:19)
--- NOTE | 2016-11-30 19:35 | NUR ---
Dialysis note: S/P temp catheter placement 3 hrs tx 2000 ml net UF Left IJ catheter, dsg changed, sutures intact Pls see DTR for VS details Qb 300-400 w/ cath limbs reversed A-V V-A due to poor cath function Heparin given O2 @ 2L via NC on during tx Tolerated tx, slept at intervals Catheter flushed, heparin dwelled and secured Stable condition at end of tx Report given to Yun DELGADO
[2016-11-30 20:03] VITALS: BP 158/70; PULSE 71; RESP 19; O2SAT 100
--- NOTE | 2016-11-30 20:20 | PCM.PHAPRO ---
Progress Date of Service: Nov 30, 2016 Hyperkalemia Dx: PVD, clotted AV graft PMH: DM2, ESRD, HTN INR goal 2-3 INR 1.18 (below goal) give warfarin 2.5mg po tonight draw INR AM labs on 12/01 per pharmacy Donovan Conway PharmD Donovan Conway Nov 30, 2016 20:20
[2016-11-30] MEDS: Insulin LISPRO 300 Unit/3 mL Inj SUBQ SCH (22:00)
[2016-11-30] MEDS: Insulin GLARgine 100 Unit/mL Syringe SUBQ SCH (22:46)
[2016-12-01] VITALS (18 sets, daily range): BP systolic 123–180; BP diastolic 61–102; PULSE 61–130; RESP 16–22; O2SAT 95–100
[2016-12-01] MEDS: Heparin 5,000 Unit/mL Inj SUBQ SCH ×3 (02:14→20:11)
[2016-12-01 04:13] LABS: BASOPHILS % (AUTO) 0.8 % (0-3); EOSINOPHILS % (AUTO) 6.1 % (0-5); MONOCYTES % (AUTO) 10.8 % (4-12); Mean Corpuscular Hemoglobin 31.7 pg (27.0-35.0); Mean Corpuscular Volume 98.9 fL (81-100); NEUTROPHILS % (AUTO) 61.6 % (40-74); Platelet Count 151 bil/L (150-400)
[2016-12-01 04:24] LABS: INR 1.15 ratio
[2016-12-01] MEDS ORDERED: Heparin 10,000 Unit/1,000 mL NS Premix IV ONE ×4 (07:48→10:05)
[2016-12-01] MEDS: Insulin LISPRO 300 Unit/3 mL Inj SUBQ SCH ×4 (08:00→22:00)
--- NOTE | 2016-12-01 08:09 | NUR ---
Restful Night/NPO/Warfarin Pt appeared to sleep well overnight, given Tylenol x1 for achiness around dialysis catheter, no further complaints after that. All VSS, potassium normalized, see labs. Pt NPO after midnight, verbalized understanding. Per MD, okay to give Warfarin and Heparin SQ as per orders. Clarified this given pending procedure.
[2016-12-01] MEDS ORDERED: ALTEPLASE IV ONE (08:20)
[2016-12-01] MEDS ORDERED: SODIUM CHLORIDE 0.9% IV ONE (08:20)
[2016-12-01] MEDS ORDERED: fentaNYL-PF 50 mCg/mL 2 mL Inj ONE ×2 (08:40→10:27)
[2016-12-01] MEDS ORDERED: Heparin 1,000 Unit/mL 10 mL Inj ONE (08:40)
[2016-12-01] MEDS ORDERED: Alteplase (Cathflo) 1 mg/mL 2 mL Inj INTRACATH ONE (08:55)
[2016-12-01] MEDS ORDERED: CeFAZolin 1 Gm/50 mL D5W Duplex Bag IV ONE (08:58)
[2016-12-01] MEDS ORDERED: Atropine 1 mg/10 mL (Code) Syringe ONE (10:09)
--- NOTE | 2016-12-01 11:46 | DRSVH ---
PROCEDURE: US DUPLEX DOPPLER OF DIALYSIS SHUNT ([id number]) INDICATIONS: R/O THROMBOSIS TECHNIQUE: Color and pulse Doppler interrogation was performed of the upper extremity arteriovenous fistula, wit h image documentation. COMPARISON: None. FINDINGS: Limited evaluation of the left brachial basilic synthetic arteriovenous graft demonstrates patency of the left brachial artery to their is occlusion at the level of the brachial graft anastom osis with no flow visualized within the entire graft. Patent basilic and axillary veins noted. IMPRESSION: Complete thrombosis of the left brachial artery arteriovenous graft from the arterial shea stomosis. Dictated by: Daniel POWELL Interpreted: Mary Garcia MD on 11/30/2016 at 16:19 Approved by: Mary Garcia M.D. on 12/01/2016 at 11:44
--- NOTE | 2016-12-01 12:23 | NUR ---
Received/Recovery Received from [employer] [employer] at 1110. VSS. Denies pain. Tele SR with 1st degree AVB. Scant ooze from upper access site pursestring intact. Small hematoma distal to that unchanged. Lower access site covered wtih ultrafoam and bio-occlusive dressing. Trace firmness proximal to it unchanged. +pulse, weak bruit. Taking po well. Dozing intermittently. Purstring to be pulled about 1310. Continue to monitor per orders.
--- NOTE | 2016-12-01 15:31 | DRSVH ---
PROCEDURE: MECHANICL THROMB REMVL FISTULA INDICATIONS: CLOT COMPARISON: None. Fluoroscopy time: 18.1 minutes. Technique: 1. Antegrade access of the venous outflow of the left upper extremity dialysis graft. 2. Retrograde access of the venous outflow left upper extremity dialysis graft. 3. Mechanical and pharmacologic thrombolysis of the thrombosed dialysis graft. 4. Intermittent fistulogram. 5. Mechanical thrombolysis with the AngioJet throughout the venous portion of the dialysis graft. 6. Completion fistulogram, sheath removal, hemostasis. The indications, alternatives, benefits, risks, and complications of the procedure were explained to the patient.. Informed written consent was obtained and placed in the chart. The patient was clement t to the angiography suite, and conscious sedation was administered intravenously by prison staff, while continuous cardiorespiratory monitoring was performed. Maximum sterile barrier technique was employed per standard protocol, including hand hygiene, cap, ma sk, sterile gown and gloves, and 2% chlorhexidine. Sterile ultrasound probe cover was also utilized. The under ultrasound guidance, the thrombosed dialysis graft was accessed first an antegrade fashio n. The micropuncture sheath was exchanged for a short 6 Indian sheath. Next, the dialysis graft was a ccessed in a retrograde fashion more centrally and the micropuncture sheath was exchanged for a short 6 Indian sheath. 2 mg TPA admixed in 10 cc normal saline was injected into the peripheral portion of the thrombus through the proximal sheath. 2 mg of TPA mixed in 10 cc normal saline was then injected through a multi-sidehole infusion catheter through the central portion of the thrombus to the more p eripheral sheath. Angioplasty was then performed for a stenosis at the arteriovenous anastomosis a 4 mm x 40 mm high-pr essure balloon. Angioplasty was also performed throughout the dialysis graft more centrally with a 6 mm x 4 mm high-pressure balloon. Fistulogram was performed. Next, mechanical thrombolysis was perform ed with the AngioJet catheter first through the more central sheath and second through the more perip heral sheath. Completion fistulogram was performed. FINDINGS: Initial fistulogram demonstrated near complete thrombosis of the entire graft portion of t he venous outflow of a left upper extremity. A focal high-grade stenosis is present at the arterioven ous anastomosis. A focal high-grade stenosis is also present at the graft vein anastomosis more centr ally. After balloon angioplasty, there is near complete resolution of these 2 stenotic lesions. The c ompletion fistulogram demonstrates widely patency and good flow throughout the fistula. Of note, trac e residual thrombus was present within the central portion of the graft at completion of the study. IMPRESSION: 1. Status post mechanical and pharmacologic thrombolysis of an occluded left upper extremity dialysis graft. Please note, the temporary hemodialysis catheter which was placed yesterday will be left in place unt il the patient is successfully dialyzed tomorrow via the graft. Once there is successful dialysis, th e temporary catheter can be removed and, if the patient meets discharge criteria, he may be discharge d. This finding was discussed with the patient's resident physician by the radiologist at 3:25 PM on 12/01. Dictated by: Roslyn Perales M.D. on 12/01/2016 at 15:23 Approved by: Roslyn Perales M.D. on 12/01/2016 at 15:29
--- NOTE | 2016-12-01 15:41 | NUR ---
Transfer Assessment unchanged. Pursestring pulled about 1425. 10 minutes pressure held and bandaid placed. Report to Roland Mark RN. Transported to 2029 via bed with all belongings in no distress. Bedside check done.
--- NOTE | 2016-12-01 16:01 | PCM.PNMED ---
Subjective Date of Service Dec 01, 2016 Subjective Overnight there were no acute events. Mr. Vicente feels better since his dialysis session yesterday. He is wondering if we are going to pull his temporary dialysis today. He denies any fever/chills, palpitations, chest pain, bleeding, or shortness of breath. Exam Vital Signs Vital Sign - Last Date Time Temp Pulse Resp B/P Pulse Ox O2 Delivery O2 Flow Rate FiO2 12/01/16 14:05 36.8 63 16 161/94 100 Room Air 12/01/16 13:00 2.00 Intake and Output 11/30/16 11/30/16 12/01/16 Cumulative From/Thru 15:00 23:00 07:00 11/30/16 11:23 - 11/30/16 20:03 Output Total 2000 ml 2000 ml Balance -2000 ml -2000 ml Output Ultrafiltrate 2000 ml 2000 ml Exam General: Obese [place] male laying in bed in NAD HEENT: NCAT. EOMI, PERRLA. Mucous membranes pink and moist without cobblestoning. Neck: Supple with full ROM. JVD, thyromegaly difficult to assess due to body habitus. Temporary dialysis catheter in place on the left. CV: RRR without murmur/rubs/gallop Pulm: CTA bilaterally, no wheezes/rales/rhonchi. Normal respiratory effort without accessory muscle use. Abd: Soft, obese. Nontender throughout. No organomegaly appreciated. Extremities: Chronic venous stasis discoloration in bilateral LE. No cyanosis/ clubbing/edema Neuro: A&Ox3. CN 2-12 intact, muscle strength normal in all extremities. No focal deficits. Psych: Normal mood and affect. IVs and Medications Medications Reviewed: Medications were reviewed in detail Lab and Diagnostics Result Diagram: 12/01/16 0350 12/01/16 0350 X-Rays, CTs and MRIs Temporary Dialysis Catheter Placement IMPRESSION: Left internal jugular vein temporary hemodialysis catheter placement using fluoroscopic and ultrasound guidance. Dictated by: Lobo New M.D. on 11/30/2016 at 16:26 Approved by: Lobo New M.D. on 11/30/2016 at 16:26 Additional Diagnostics AV Fistula Thrombolysis IMPRESSION: 1. Status post mechanical and pharmacologic thrombolysis of an occluded left upper extremity dialysis graft. Please note, the temporary hemodialysis catheter which was placed yesterday will be left in place until the patient is successfully dialyzed tomorrow via the graft. Once there is successful dialysis, the temporary catheter can be removed and, if the patient meets discharge criteria, he may be discharged. This finding was discussed with the patient's resident physician by the radiologist at 3:25 PM on 12/01/16. Dictated by: Roslyn Perales M.D. on 12/01/2016 at 15:23 Approved by: Roslyn Perales M.D. on 12/01/2016 at 15:29 Assessment & Plan Mr. Vicente with history of diabetes mellitus type 2 with neuropathy, ESRD on hemodialysis MWF, and reported hypertension was directly admitted from Radiology for hyperkalemia while waiting for a fistulogram. Hyperkalemia, present on admission, acute. Resolved. - Potassium 6.8 on admission, 4.8 post dialysis - Continue to monitor with metabolic panel End Stage Renal Disease requiring Hemodialysis MWF, present on admission, chronic. Ongoing. - Patients left arm AV fistula was clotted off; temporary catheter placed for urgent dialysis session on 11/30 - Dialysis scheduled in house for tomorrow moving to assess patency of AV fistula - Continue home Sevelamer, Calcium, Vitamin D3 - Continue home Warfarin, Plavix - Continue to monitor with metabolic panel Diabetes Mellitus Type 2, insulin using with neuropathy, present on admission, chronic. Controlled. - A1c 6.8 - Continue home Lantus 30 units at night - Medium dose correctional and nutritional scale ordered with meals PRN Acetaminophen for mild pain, headache, and fever when necessary. Bowel regimen Senna and MiraLAX scheduled when needed. Zofran when necessary for nausea and vomiting. SubQ heparin on board. High-risk medications: Warfarin Patient Status: Patient will likely be discharged home tomorrow after dialysis depending on the patency of his fistula, removal of the temporary catheter, and continued medical stability. GI Prophylaxis: Not indicated VTE Prophylaxis: Sub-Q Heparin (Unfractionated), Other (patient on warfarin, INR pending) Resuscitation Status: CPR: Attempt Resuscitation Attending Statement The patient was seen and examined together with Dr. Linn on 12/01/2016 and I agree with the history, exam and plan as outlined in the note above. . Robin Linn DO Dec 01, 2016 16:01 Thomas Waters MD Dec 03, 2016 16:15
--- NOTE | 2016-12-01 18:39 | NUR ---
Fistula Declot Pt off floor first thing down to chemical lab supervisor for declotting. Pt back on floor at 13:30. Pt stable and pain free. No s/s of hematoma on fistula, no bleeding. Cardiac: Pt denies CP, Tele: SR 70-80 Resp: Pt denies SOB, SPO2 mid to high 90s on RA. GI/: Pt denies n/v/d Neuro: A&O, THAKUR
[2016-12-01] MEDS: Insulin GLARgine 100 Unit/mL Syringe SUBQ SCH (23:11)
[2016-12-02] VITALS (7 sets, daily range): BP systolic 117–158; BP diastolic 74–88; PULSE 55–100; RESP 16–20; O2SAT 92–100
--- NOTE | 2016-12-02 05:52 | NUR ---
Critical Labs/BPs/Pain Pt has critical labs this AM. Pt's potassium is now at 6.2 and creatinine is 11.13. Pt is to receive dialysis today. Pt's SBP has remained in the 150s throughout the shift. When asked pt denies pain.
[2016-12-02] MEDS: Insulin LISPRO 300 Unit/3 mL Inj SUBQ SCH ×4 (07:35→22:00)
[2016-12-02] MEDS: Heparin 5,000 Unit/mL Inj SUBQ SCH ×2 (08:53→22:42)
--- NOTE | 2016-12-02 09:00 | NUR ---
Pt arrived to [facility]: Pt arrived to [facility] for dialysis treatment. Report obtained form primary RN. Pt stable at time of transfer. Tele monitor aware of room change. Addendum: 12/02/16 at 1427 by MUSTAPHA RAI RN Pt completed treatment and returned to [facility]. Report called to primary nurse. mechanical facilities technician aware of room change.
--- NOTE | 2016-12-02 10:18 | PCM.PNNEPH ---
Subjective Date of Service Dec 02, 2016 Subjective The patient underwent a declotting procedure yesterday by Dr. Perales, unfortunately this morning it appears that the access was clotted off once again. Otherwise patient has no new complaints and denies any headache, chest pain, or shortness of breath. This morning the sodium is 133, potassium 6.2, chloride of 91, bicarbonate 19, BUN and creatinine were 74 and 1.13 respectively. Exam Vital Signs Vital Sign - Last Date Time Temp Pulse Resp B/P Pulse Ox O2 Delivery O2 Flow Rate FiO2 12/02/16 08:48 72 12/02/16 07:29 36.5 16 129/74 100 Room Air 12/01/16 13:00 2.00 Intake and Output 12/01/16 12/01/16 12/02/16 Cumulative From/Thru 15:00 23:00 07:00 11/30/16 11:23 - 12/02/16 05:58 Intake Total 400 ml 800 ml 1200 ml Output Total 0 ml 0 ml 2000 ml Balance 400 ml 800 ml -800 ml Intake Oral 400 ml 800 ml 1200 ml Output Urine Total 0 ml 0 ml 0 ml Ultrafiltrate 2000 ml # Voids 0 0 # Bowel Movements 1 1 Exam Neck is supple without adenopathy, thyromegaly, or jugular venous distention. Lungs were clear to auscultation. Heart is regular rhythmical with a soft systolic murmur. Abdomen soft without any tenderness rebound guarding masses or hepatosplenomegaly. Extremities no tremor evidence of any clubbing, cyanosis , or edema. Skin turgor is good. Lab and Diagnostics Result Diagram: 12/01/16 0350 12/02/16 0332 X-Rays, CTs and MRIs Temporary Dialysis Catheter Placement IMPRESSION: Left internal jugular vein temporary hemodialysis catheter placement using fluoroscopic and ultrasound guidance. Dictated by: Lobo New M.D. on 11/30/2016 at 16:26 Approved by: Lobo New M.D. on 11/30/2016 at 16:26 Plan Impression Impression #1 end-stage renal disease dialysis dependent #2 clotted AV fistula #3 diabetic nephropathy #4 hypertension with hypertensive heart disease and hypertensive nephrosclerosis. Recommendations #1 patient to dialyze today for A MAX dialyzer, 2 potassium bath , 400 blood flow, 600 dialysate flow, heparin and 500 per hour, will try to take 3-4 L as tolerated. The discharge for now until we can reassess his clotted AV fistula. Watson Corea DO Dec 02, 2016 10:18
--- NOTE | 2016-12-02 12:13 | PCM.PNMED ---
Subjective Date of Service Dec 02, 2016 Subjective Overnight there were no acute events. Mr. Vicente is feeling good this morning. He denies any chest pain, palpitations, SOB, nausea/vomiting. He has a dialysis session soon and is wondering if we can pull the temporary catheter. Exam Vital Signs Vital Sign - Last Date Time Temp Pulse Resp B/P Pulse Ox O2 Delivery O2 Flow Rate FiO2 12/02/16 09:35 68 12/02/16 07:29 36.5 16 129/74 100 Room Air 12/01/16 13:00 2.00 Intake and Output 12/01/16 12/01/16 12/02/16 Cumulative From/Thru 15:00 23:00 07:00 11/30/16 11:23 - 12/02/16 05:58 Intake Total 400 ml 800 ml 1200 ml Output Total 0 ml 0 ml 2000 ml Balance 400 ml 800 ml -800 ml Intake Oral 400 ml 800 ml 1200 ml Output Urine Total 0 ml 0 ml 0 ml Ultrafiltrate 2000 ml # Voids 0 0 # Bowel Movements 1 1 Exam General: Obese [place] male laying in bed in NAD HEENT: NCAT. EOMI, PERRLA. Mucous membranes pink and moist without cobblestoning. Neck: Supple with full ROM. JVD, thyromegaly difficult to assess due to body habitus. Temporary dialysis catheter in place on the left. CV: RRR without murmur/rubs/gallop Pulm: CTA bilaterally, no wheezes/rales/rhonchi. Normal respiratory effort without accessory muscle use. Abd: Soft, obese. Nontender throughout. No organomegaly appreciated. Extremities: Chronic venous stasis discoloration in bilateral LE. No cyanosis/ clubbing/edema Neuro: A&Ox3. CN 2-12 intact, muscle strength normal in all extremities. No focal deficits. Psych: Normal mood and affect. IVs and Medications Medications Reviewed: Medications were reviewed in detail Lab and Diagnostics Result Diagram: 12/01/16 0350 12/02/16 0332 X-Rays, CTs and MRIs Temporary Dialysis Catheter Placement IMPRESSION: Left internal jugular vein temporary hemodialysis catheter placement using fluoroscopic and ultrasound guidance. Dictated by: Lobo New M.D. on 11/30/2016 at 16:26 Approved by: Lobo New M.D. on 11/30/2016 at 16:26 Assessment & Plan Mr. Vicente with history of diabetes mellitus type 2 with neuropathy, ESRD on hemodialysis MWF, and reported hypertension was directly admitted from Radiology for hyperkalemia while waiting for a fistulogram. Hyperkalemia, present on admission, acute. Resolved. - Potassium 6.2 prior to dialysis session on 12/02 - Continue to monitor electrolytes, telemetry End Stage Renal Disease requiring Hemodialysis MWF, present on admission, chronic. Ongoing. - Dialysis 12/02 through his AV fistula if possible, via temporary catheter if it is still clotted off - Continue home Sevelamer, Calcium, Vitamin D3 - Continue home Warfarin, Plavix - Continue to monitor electrolytes Diabetes Mellitus Type 2, insulin using with neuropathy, present on admission, chronic. Controlled. - A1c 6.8 - Continue home Lantus 30 units at night - Medium dose correctional and nutritional scale ordered with meals PRN Acetaminophen for mild pain, headache, and fever when necessary. Bowel regimen Senna and MiraLAX scheduled when needed. Zofran when necessary for nausea and vomiting. SubQ heparin on board. High-risk medications: Warfarin Disposition: The patient will be discharged to home depending on the condition of his AV fistula and response to dialysis. GI Prophylaxis: Not indicated VTE Prophylaxis: Sub-Q Heparin (Unfractionated), Other (patient on warfarin, INR pending) Resuscitation Status: CPR: Attempt Resuscitation Attending Statement The patient was seen and examined together with Dr. Linn on 12/02/2016 and I agree with the history, exam and plan as outlined in the note above. . Robin Linn DO Dec 02, 2016 12:13 Thomas Waters MD Dec 03, 2016 16:16
--- NOTE | 2016-12-02 14:10 | NUR ---
Dialysis note: 4 hrs tx 4000 ml net UF per pt's request LISA graft w/ faint thrill, tried to access but pulled clots, Dr Corea notified Left temp catheter used instead, cath dsg dry and intact Pls see DTR for VS details Qb 375-450 w/ cath limbs reversed A-V V-A due to poor cath function Heparin given + NS flushes O2 @ 2L via NC on during tx Tolerated tx, slept at intervals Catheter flushed, heparin dwelled and secured Stable condition at end of tx Report given to Yuni DELGADO
--- NOTE | 2016-12-02 15:20 | NUR ---
Social Work: Initial Assessment/Multidisciplinary Rounds D: Per EMR review, pt is a 46 year old male admitted for Hyperglycemia. Pt is Medicare with [employer] supplement; pt has no LTC insurance or VA benefits. PCP is [facility]. NOK is his brother, Selwyn Vicente. Advanced directives not completed information provided by [employer]. Pt discussed in am rounds. Pt will be here until nephro can reassess hi clotted AV Fistula, per MD. No Concerns noted for pt's capacity for self-care as pt has been I with care during admission and is a/ox4. [employer] met with pt and bedside to complete IA; sw role explained, discharge planning checklist and contact information provided. Pt lives in [place] with his brother. Pt uses no DME, continues to drive and is I with all ADLs. Pt is on hemodialysis. Pt has never had HH or skilled rehab. Pt lives in a two story home iwth 4 steps to enter. He has no concerns about discharge home once medically stable and states his brother would likely transport him. A: Pt who i I at baseline. P: Anticipate pt to discharge home via POV once medically stable; [employer] to continue to follow to assess for discharge needs during pts hospitalization. TIERNEY Hagan Addendum: 12/02/16 at 1525 by KIARA JIMÉNEZ Amended: Links added.
--- NOTE | 2016-12-02 15:29 | NUR ---
[facility] Signed
[2016-12-02 19:09] LABS: INR 1.31 ratio
--- NOTE | 2016-12-02 19:30 | PCM.PHAPRO ---
Progress Hyperkalemia INR today=1.31 (goal 2-3) Warfarin 5mg po x 1 today. Pharmacy will monitor INR daily and order warfarin daily. Corina Bland [facility] Dec 02, 2016 19:30
[2016-12-02] MEDS: Insulin GLARgine 100 Unit/mL Syringe SUBQ SCH (22:43)
[2016-12-03] VITALS (8 sets, daily range): BP systolic 134–170; BP diastolic 72–95; PULSE 58–76; RESP 16–24; O2SAT 98–100
[2016-12-03 03:51] LABS: INR 1.52 ratio
--- NOTE | 2016-12-03 05:39 | NUR ---
Rest Pt was able to rest through most of the night. Pt VSS and no c/o pain when asked.
--- NOTE | 2016-12-03 07:41 | PCM.PHAPRO ---
Progress Date of Service: Dec 03, 2016 Warfarin dosing Date Dec 01-Dec 02-Dec 03-Nov INR 1.18 1.15 1.31 1.52 INR change -0.03 0.16 0.21 Warf Dose 2.5mg 5mg 5mg 5mg Thomas Weiss Dec 03, 2016 07:41
[2016-12-03] MEDS: Insulin LISPRO 300 Unit/3 mL Inj SUBQ SCH ×4 (08:00→22:00)
[2016-12-03] MEDS: Heparin 5,000 Unit/mL Inj SUBQ SCH ×2 (08:30→20:52)
--- NOTE | 2016-12-03 11:35 | PCM.PNNEPH ---
Subjective Date of Service Dec 03, 2016 Subjective The patient's left upper arm access has remained clotted off. I had a long discussion by phone yesterday with Dr. Perales from radiology. Once again try to declot him tomorrow patient is unsuccessful I am in contact with the patient' s marker hand to see about possible transfer down to effort. Further evaluation by his vascular surgeon. Otherwise he denies any headache, chest pain, shortness of breath, nausea or vomiting. Exam Vital Signs Vital Sign - Last Date Time Temp Pulse Resp B/P Pulse Ox O2 Delivery O2 Flow Rate FiO2 12/03/16 08:26 60 12/03/16 07:30 36.4 16 140/74 100 Room Air 12/01/16 13:00 2.00 Intake and Output 12/02/16 12/02/16 12/03/16 Cumulative From/Thru 15:00 23:00 07:00 11/30/16 11:23 - 12/03/16 06:50 Intake Total 700 ml 440 ml 2340 ml Output Total 4000 ml 6000 ml Balance -4000 ml 700 ml 440 ml -3660 ml Intake Oral 700 ml 440 ml 2340 ml Output Urine Total 0 ml Ultrafiltrate 4000 ml 6000 ml # Voids 0 0 0 # Bowel Movements 1 2 Exam Neck is supple without adenopathy, thyromegaly, or jugular venous distention. Lungs were clear to auscultation. Heart is regular with a soft systolic murmur. Abdomen is soft without any tenderness, rebound, guarding, masses, or hepatosplenomegaly. Extremities do not show any evidence of any clubbing, cyanosis, or edema. Lab and Diagnostics Result Diagram: 12/01/16 0350 12/02/16 1705 X-Rays, CTs and MRIs Temporary Dialysis Catheter Placement IMPRESSION: Left internal jugular vein temporary hemodialysis catheter placement using fluoroscopic and ultrasound guidance. Dictated by: Lobo New M.D. on 11/30/2016 at 16:26 Approved by: Lobo New M.D. on 11/30/2016 at 16:26 Plan Impression Impression #1 end-stage renal disease dialysis dependent number to diabetic nephropathy #3 hypertension with hypertensive heart disease and nephrosclerosis number for clotted AV fistula. Recommendations #1 make arrangements for him to have the access on 10 attempt to declot this tomorrow by radiology. Orders written and the patient is to be nothing by mouth after midnight. Watson Corea DO Dec 03, 2016 11:35
--- NOTE | 2016-12-03 14:49 | NUR ---
Social Work: Multidisciplinary Rounds Pt discussed in am rounds. Pt is not medically stable for discharge at this time. Pt scheduled for fistula repair tomorrow. Sw status remains unchanged; anticipate discharge home when medically stable. [employer] to continue to follow for discharge needs. Cecilia Vasquez MSW
--- NOTE | 2016-12-03 16:01 | PCM.PNMED ---
Subjective Date of Service Dec 03, 2016 Subjective Yesterday - Mr. Vicente's fistula remained clotted / occluded and non functional.Overnight there were no acute events. Mr. Vicente is feeling good this morning. He denies any chest pain, palpitations, SOB, nausea/vomiting. He has a dialysis session soon and is wondering if we can pull the temporary catheter. Exam Vital Signs Vital Sign - Last Date Time Temp Pulse Resp B/P Pulse Ox O2 Delivery O2 Flow Rate FiO2 12/03/16 05:13 65 12/03/16 03:06 36.8 16 134/72 98 12/02/16 17:53 Room Air 12/01/16 13:00 2.00 Intake and Output 12/02/16 12/02/16 12/03/16 Cumulative From/Thru 15:00 23:00 07:00 11/30/16 11:23 - 12/03/16 03:09 Intake Total 700 ml 1900 ml Output Total 4000 ml 6000 ml Balance -4000 ml 700 ml -4100 ml Intake Oral 700 ml 1900 ml Output Urine Total 0 ml Ultrafiltrate 4000 ml 6000 ml # Voids 0 0 # Bowel Movements 1 2 Exam General: Obese [place] male laying in bed in NAD HEENT: NCAT. EOMI, PERRLA. Mucous membranes pink and moist without cobblestoning. Neck: Supple with full ROM. JVD, thyromegaly difficult to assess due to body habitus. Temporary dialysis catheter in place on the left. CV: RRR without murmur/rubs/gallop Pulm: CTA bilaterally, no wheezes/rales/rhonchi. Normal respiratory effort without accessory muscle use. Abd: Soft, obese. Nontender throughout. No organomegaly appreciated. Extremities: Chronic venous stasis discoloration in bilateral LE. No cyanosis/ clubbing/edema Neuro: A&Ox3. CN 2-12 intact, muscle strength normal in all extremities. No focal deficits. Psych: Normal mood and affect. IVs and Medications Medications Reviewed: Medications were reviewed in detail Lab and Diagnostics Result Diagram: 12/01/16 0350 12/02/16 1705 X-Rays, CTs and MRIs Temporary Dialysis Catheter Placement IMPRESSION: Left internal jugular vein temporary hemodialysis catheter placement using fluoroscopic and ultrasound guidance. Dictated by: Lobo New M.D. on 11/30/2016 at 16:26 Approved by: Lobo New M.D. on 11/30/2016 at 16:26 Assessment & Plan Mr. Vicente with history of diabetes mellitus type 2 with neuropathy, ESRD on hemodialysis MWF, and reported hypertension was directly admitted from Radiology for hyperkalemia while waiting for a fistulogram. End Stage Renal Disease requiring Hemodialysis MWF, present on admission, chronic. Ongoing. - Dialysis 12/02 through his AV fistula if possible, via temporary catheter if it is still clotted off - Continue home Sevelamer, Calcium, Vitamin D3 - Continue home Warfarin, Plavix - Continue to monitor electrolytes - Nephrology following, recommendations appreciated. - Fistula is occluded, will attempt to re-canulate 12/04/16, If unsuccessful will plan on transfer to [facility]. Hyperkalemia, present on admission, acute. Resolved. - Potassium 6.2 prior to dialysis session on 12/02 and 5.0 following. - Continue to monitor electrolytes, telemetry Diabetes Mellitus Type 2, insulin using with neuropathy, present on admission, chronic. Controlled. - A1c 6.8 - Continue home Lantus 30 units at night - Medium dose correctional and nutritional scale ordered with meals PRN Acetaminophen for mild pain, headache, and fever when necessary. Bowel regimen Senna and MiraLAX scheduled when needed. Zofran when necessary for nausea and vomiting. SubQ heparin on board. High-risk medications: Warfarin Disposition: The patient will be discharged to home depending on the condition of his AV fistula and response to dialysis. GI Prophylaxis: Not indicated VTE Prophylaxis: Sub-Q Heparin (Unfractionated), Other (patient on warfarin, INR pending) Resuscitation Status: CPR: Attempt Resuscitation Attending Statement The patient was seen and examined together with Dr. Miller on 12/03/2016 and I agree with the history, exam and plan as outlined in the note above. . COY MILLER DO Dec 03, 2016 06:36 Thomas Waters MD Dec 03, 2016 16:18
--- NOTE | 2016-12-03 18:39 | NUR ---
Activity/blood sugar Cardiac: pt denies chest pain. Tele: A-Flutter 60s. Plan is for recannulization of Fistula tomorrow in [employer] followed by dialysis, pt is aware of plan Resp: pt denies SOB. Spo2 100% on RA GI/: pt denies N/V/D. Dialysis MWF. No insulin coverage needed all day till dinner. Sugar spiked to 195, one unit given per algorithm. . Neuro: AOx3, THAKUR, pt ambulating independent in room with strong steady gait, up in chair for meals.
[2016-12-03] MEDS: Insulin GLARgine 100 Unit/mL Syringe SUBQ SCH (20:53)
[2016-12-04 01:00] VITALS: BP 124/74; PULSE 57; RESP 16; O2SAT 100
[2016-12-04 04:47] LABS: INR 2.53 ratio
[2016-12-04 05:22] VITALS: BP 118/67; PULSE 56; RESP 16; O2SAT 99
[2016-12-04] MEDS: Insulin LISPRO 300 Unit/3 mL Inj SUBQ SCH ×2 (08:00→11:39)
[2016-12-04 08:07] LABS: Mean Corpuscular Hemoglobin 31.6 pg (27.0-35.0); Mean Corpuscular Volume 97.9 fL (81-100)
[2016-12-04 09:48] VITALS: BP 146/89; PULSE 69; RESP 18; O2SAT 95
[2016-12-04] MEDS: Heparin 5,000 Unit/mL Inj SUBQ SCH (09:51)
[2016-12-04 10:07] VITALS: PULSE 56
[2016-12-04 10:13] VITALS: BP 141/83; PULSE 64
--- NOTE | 2016-12-04 10:15 | NUR ---
Transfer for dialysis Patient received from [facility]. Report received from Denise Andrews. eye technician at bedside. Addendum: 12/04/16 at 1531 by LUCILLE AMRIE RN Patient transported back to 2029. Report given by davide DELGADO.
--- NOTE | 2016-12-04 10:28 | PCM.PNNEPH ---
Subjective Date of Service Dec 04, 2016 Subjective Pt. scheduled to be transfered to [facility] today for further eval of AVF. No c/o otherwise doing well. lab reviewed Exam Vital Signs Vital Sign - Last Date Time Temp Pulse Resp B/P Pulse Ox O2 Delivery O2 Flow Rate FiO2 12/04/16 10:07 56 12/04/16 09:48 36.7 18 146/89 95 Room Air 12/01/16 13:00 2.00 Intake and Output 12/03/16 12/03/16 12/04/16 Cumulative From/Thru 15:00 23:00 07:00 11/30/16 11:23 - 12/04/16 05:23 Intake Total 1600 ml 350 ml 4290 ml Output Total 0 ml 0 ml 6000 ml Balance 1600 ml 350 ml -1710 ml Intake Oral 1600 ml 350 ml 4290 ml Output Urine Total 0 ml 0 ml 0 ml Ultrafiltrate 6000 ml # Voids 0 # Bowel Movements 0 0 2 Exam Nech-supple, no nodes or JVD Lungs CLear but decreased sagrario, Heart rr w/m, Abdomen soft, +BS no tenderness HSM, ext no edema Lab and Diagnostics Result Diagram: 12/04/165 12/04/16 0425 X-Rays, CTs and MRIs Temporary Dialysis Catheter Placement IMPRESSION: Left internal jugular vein temporary hemodialysis catheter placement using fluoroscopic and ultrasound guidance. Dictated by: Lobo New M.D. on 11/30/2016 at 16:26 Approved by: Lobo New M.D. on 11/30/2016 at 16:26 Plan Impression Impression 1. ESRD 2. clotted AVF Rec 1. Pt. dialyzed for 4 hours, max dialyzer, K2, Qb 400/600, 1000 heparin, 500 /hr, 3 litre fluid removal Watson Corea DO Dec 04, 2016 10:28
--- NOTE | 2016-12-04 12:02 | PCM.DIMED ---
Robin Linn DO 12/04/16 1050: Discharge Instructions Date of Service Dec 04, 2016 Dates of Hospitalization Nov 30, 2016 at 14:37 Discharge Diagnosis Discharge Diagnosis End Stage Renal Disease requiring Hemodialysis MWF Hyperkalemia Diabetes Mellitus Type 2, insulin using with neuropathy Diet Discharge Diet: Diabetic, Renal Diet Call your provider Call your provider for: Fever or Chills, Shortness of breath, Bleeding, Vomitting, Excessive diarrhea Patient Instructions Patient Instructions We were unable to recannulize your AV fistula with medical management, it will require further evaluation with the surgeon who placed it (Dr. Carballo) or one of his colleagues. We are transferring your care to [facility] via Dr. Menendez at this time. Follow-up Provider: Neal Menendez MD, Precious L DO 12/04/16 1757: Discharge Instructions Attending's Statement The patient was seen and examined together with Dr. Linn on 12/04/16 and I agree with the history, exam and plan as outlined in the note above. Rboin Linn DO Dec 04, 2016 10:50 Maria Guadalupe Peres DO Dec 04, 2016 17:57
--- NOTE | 2016-12-04 12:09 | PCM.DC.MED ---
Discharge Summary Date of Service Dec 04, 2016 Dates of Hospitalization Date of Hospital Admission Nov 30, 2016 at 14:37 Date of Discharge: Dec 04, 2016 Providers: Admitting Physician: Thomas Waters MD Primary Care Physician: Rachel Lacy Attending Physician: Maria Guadalupe Peres DO Diagnosis at Time of Discharge Diagnosis at Time of Discharge End Stage Renal Disease requiring Hemodialysis MWF Hyperkalemia Diabetes Mellitus Type 2, insulin using with neuropathy Consultations Dr. Corea, Nephrology Procedures XRay, CTs & MRIs Temporary Dialysis Catheter Placement IMPRESSION: Left internal jugular vein temporary hemodialysis catheter placement using fluoroscopic and ultrasound guidance. Dictated by: Lobo New M.D. on 11/30/2016 at 16:26 Approved by: Lobo New M.D. on 11/30/2016 at 16:26 Invasive Procedures IR thrombolysis of AV fistula Brief History Mr. 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 During his wait a blood draw took place that showed his potassium was 6.8 and it was decided that he needed a temporary dialysis catheter and directly admitted for urgent dialysis. He denies being symptomatic at all, citing no nausea/vomiting/diarrhea , palpitations, or chest pain. He reports his last A1C was around 5.9 and that he follows a renal diet "pretty closely". He was dialyzed on admission and his AV fistula was evaluated by Interventional Radiology the following morning. His AV fistula was recannulated eventually with tPA administration but was not sufficient as his Sunday dialysis session through the fistula failed and he had to be dialyzed through the temporary catheter. Again on Sunday his fistula was unusable and the conversation to transfer to [place], where he had the AV fistula done, was initiated for possible revision. Hospital Course Mr. Vicente with history of diabetes mellitus type 2 with neuropathy, ESRD on hemodialysis MWF, and reported hypertension was directly admitted from Radiology for hyperkalemia while waiting for a fistulogram. Thrombosis of AV dialysis Fistula - -End Stage Renal Disease requiring Hemodialysis MWF, present on admission, chronic. Ongoing. - Dialysis 12/02 through his AV fistula if possible, via temporary catheter if it is still clotted off - Continue home Sevelamer, Calcium, Vitamin D3 - Continue home Warfarin, Plavix - Fistula is still occluded during dialysis session on 12/04 he will be transferred to [facility] for further evaluation. Hyperkalemia, present on admission, acute. Resolved. - Potassium 6.0 prior to 12/04 dialysis session Diabetes Mellitus Type 2, insulin using with neuropathy, present on admission, chronic. Controlled. - A1c 6.8 - Continue home insulin regimen Obesity -BMI 37.5 HTN -Nephrology following Disposition: The patient will be transferred in stable and improved condition to [facility] today 12/04 via his Touch Up Painter, Dr. Menendez. Exam Vital Signs (Last) Date Time Temp Pulse Resp B/P Pulse Ox O2 Delivery O2 Flow Rate FiO2 12/04/16 10:07 56 12/04/16 09:48 36.7 18 146/89 95 Room Air 12/01/16 13:00 2.00 Exam General: Obese [place] male laying in bed in NAD HEENT: NCAT. EOMI, PERRLA. Mucous membranes pink and moist without cobblestoning. Neck: Supple with full ROM. JVD, thyromegaly difficult to assess due to body habitus. Temporary dialysis catheter in place on the left. CV: RRR without murmur/rubs/gallop Pulm: CTA bilaterally, no wheezes/rales/rhonchi. Normal respiratory effort without accessory muscle use. Abd: Soft, obese. Nontender throughout. No organomegaly appreciated. Extremities: Chronic venous stasis discoloration in bilateral LE. No cyanosis/ clubbing/edema Neuro: A&Ox3. CN 2-12 intact, muscle strength normal in all extremities. No focal deficits. Psych: Normal mood and affect. Test 11/30/16 12:57 11/30/16 13:13 12/01/16 03:50 12/04/16 04:25 Hold Purple Top Tube Received (Received) Hold Blue Top Tube Received (Received) Hold [place] Top Tube Received (Received) Hemoglobin A1c 6.8% (4.8-5.6) Neutrophils (%) (Auto) 61.6% (40-74) Lymphocytes (%) (Auto) 20.5% (14-46) Monocytes (%) (Auto) 10.8% (4-12) Eosinophils (%) (Auto) 6.1% (0-5) Basophils (%) (Auto) 0.8% (0-3) Total Bilirubin 0.5mg/dL (0.0-1.2) Aspartate Amino Transf (AST/SGOT) 13U/L (0-50) Alanine Aminotransferase (ALT/SGPT) 11U/L (0-44) Alkaline Phosphatase 77U/L (25-150) Total Protein 8.2g/dL (6.4-8.4) Albumin 3.6g/dL (3.4-5.0) White Blood Count 6.2th/mm3 (3.8-10.1) Red Blood Count 3.35mil/mm3 (4.40-5.80) Hemoglobin 10.6g/dL (13.8-17.2) Hematocrit 32.8% (41.0-50.0) Mean Corpuscular Volume 97.9fL (81-100) Mean Corpuscular Hemoglobin 31.6pg (27.0-35.0) Mean Corpuscular Hemoglobin Concent 32.3% (32.0-37.0) Red Cell Distribution Width 14.9% (12.3-15.4) Platelet Count 143bil/L (150-400) Prothrombin Time 27.6sec (8.1-12.5) Prothromb Time International Ratio 2.53ratio Sodium Level 130mEq/L (134-144) Potassium Level 6.0mEq/L (3.5-5.2) Chloride Level 90mEq/L (97-108) Carbon Dioxide Level 21mmol/L (18-29) Blood Urea Nitrogen 74mg/dL (6-24) Creatinine 10.30mg/dL (0.76-1.27) Estimat Glomerular Filtration Rate 6mL/min (>59) Glucose Level 103mg/dL (60-99) Calcium Level 9.7mg/dL (8.5-10.1) Discharge Medications Discharge Medications Atorvastatin (Lipitor) 40 Mg Tablet 40 MG PO DAILY Prescribed by: FREDDY BEAULIEU DO Calcium Acetate (Calcium Acetate) 667 Mg Capsule 2 EACH PO TIDWM (Reported) Cholecalciferol (Vitamin D3) (Vitamin D3) 1,000 Unit Tab.chew 1,000 UNIT PO DAILY (Reported) Clopidogrel (Clopidogrel) 75 Mg Tablet 75 MG PO DAILY (Reported) Insulin Glargine (Lantus U100 Insulin Vial) 100 Unit/Ml Vial 30 UNIT SUBQ HS ( Reported) Insulin Human Lispro (HumaLOG U100 Insulin Vial) 100 Unit/Ml Unit 10 UNITS SQ TIDWM (Reported) Metoprolol Tartrate (Metoprolol Tartrate) 25 Mg Tablet 25 MG PO BID Prescribed by: FREDDY BEAULIEU DO Sevelamer Carbonate (Renvela) 800 Mg Tablet 3,200 MG PO TIDWM (Reported) Warfarin Sodium (Warfarin Sodium) 2.5 Mg Tablet 2.5 MG PO DIRECTED (Reported ) Followup Plan Discharge Diet: Diabetic, Renal Diet Patient Instructions We were unable to recannulize your AV fistula with medical management, it will require further evaluation with the surgeon who placed it (Dr. Carballo) or one of his colleagues. We are transferring your care to [place] via Dr. Menendez at this time. Follow-up Provider: Neal Menendez MD, Jeffery S DO Dec 04, 2016 12:09 Maria Guadalupe Peres DO Dec 04, 2016 18:04
--- NOTE | 2016-12-04 12:58 | NUR ---
Social Work Note: Multidisciplinary Rounds/Transfer Pt was discussed in AM rounds this morning. Per MD, pt is requiring transfer to [facility]. No MD orders or pt needs identified at this time. SW to continue to follow if any needs should arise prior to pt transfer this afternoon. TIERNEY Kaufman
--- NOTE | 2016-12-04 15:30 | NUR ---
Dialysis note: 4 1/2 hr tx. Net UF 3500 Left IJ temporary cath QB 370 down to 320 Tx stable. Heparin 1000 dwell limbs secured with caps. Pt returned to floor stable. Report given to primary RN, Daja. Please see DTr for complete record of VS.
--- NOTE | 2016-12-04 15:40 | NUR ---
Discharge Patient left unit via EMS services in a stable condition. Peripheral SL on right forearm left in place. Tele DC'd all personal belongings with patient. Vital signs stable after dialysis treatment prior to transfer, BG 86. Report called to DANNY Lindsey and olivia in [place]. All paperwork with EMS services.
--- NOTE | 2016-12-04 16:21 | PCM.PNNEPH ---
Subjective Date of Service Dec 04, 2016 Subjective Patient is scheduled to be transferred down to [facility] for further evaluation of his clotted AV fistula. Otherwise she denies any headache, chest pain or shortness of breath. This morning his sodium is 1:30, potassium 6.0, chloride 90 bicarbonate 21 BUN and creatinine were 74 and 10.3 respectively. Exam Vital Signs Vital Sign - Last Date Time Temp Pulse Resp B/P Pulse Ox O2 Delivery O2 Flow Rate FiO2 12/04/16 10:07 56 12/04/16 09:48 36.7 18 146/89 95 Room Air 12/01/16 13:00 2.00 Intake and Output 12/03/16 12/03/16 12/04/16 Cumulative From/Thru 15:00 23:00 07:00 11/30/16 11:23 - 12/04/16 05:23 Intake Total 1600 ml 350 ml 4290 ml Output Total 0 ml 0 ml 6000 ml Balance 1600 ml 350 ml -1710 ml Intake Oral 1600 ml 350 ml 4290 ml Output Urine Total 0 ml 0 ml 0 ml Ultrafiltrate 6000 ml # Voids 0 # Bowel Movements 0 0 2 Exam Neck is supple without adenopathy thyromegaly or jugular venous distention. Lungs are clear to auscultation. Heart was regular and rhythmical with a soft systolic murmur. Abdomen is soft without any tenderness rebound guarding masses or hepatosplenomegaly. Extremities without any evidence of any clubbing cyanosis or edema. Lab and Diagnostics Result Diagram: 12/04/16 0425 12/04/16424 X-Rays, CTs and MRIs Temporary Dialysis Catheter Placement IMPRESSION: Left internal jugular vein temporary hemodialysis catheter placement using fluoroscopic and ultrasound guidance. Dictated by: Lobo New M.D. on 11/30/2016 at 16:26 Approved by: Lobo New M.D. on 11/30/2016 at 16:26 Plan Impression Impression #1 end-stage renal disease dialysis dependent number to diabetic nephropathy #3 hypertension with hypertensive heart disease and hypertensive nephrosclerosis Recommendations #1 patient is dialyzed today for 4 hours on the max dialyzer, 2 potassium bath, 400 blood flow and 600 dialysate flow, 1000 of heparin bolus and 500 per hour and will try to take some fluid off. Following dialysis he can be transferred. Watson Corea DO Dec 04, 2016 16:21
== END 2016-12-04 15:45 | disposition short-term general hospital (02) | DRG 640 ==
LOC: SPI 00:18 → PCC 14:37
PROVIDERS: ADMIT Internal Medicine; ATTEND Neuromusculoskeletal Medicine & OMM
PROC: 5A1D60Z (ICD-10-PCS; principal; 2016-11-30)
PROC: B50W1ZZ Plain Radiography of Dialysis Shunt/Fistula using Low Osmolar Contrast (ICD-10-PCS; 2016-11-30)
PROC: 05HN33Z Insertion of Infusion Device into Left Internal Jugular Vein, Percutaneous Approach (ICD-10-PCS; 2016-11-30)
PROC: B544ZZA Ultrasonography of Left Jugular Veins, Guidance (ICD-10-PCS; 2016-11-30)
DX: E87.5 Hyperkalemia (principal); N18.6 End stage renal disease; I12.0 Hypertensive chronic kidney disease with stage 5 chronic kidney disease or end stage renal disease; T82.868A Thrombosis due to vascular prosthetic devices, implants and grafts, initial encounter; Z99.2 Dependence on renal dialysis; E11.22 Type 2 diabetes mellitus with diabetic chronic kidney disease; Z79.4 Long term (current) use of insulin; Z79.01 Long term (current) use of anticoagulants; Z79.82 Long term (current) use of aspirin; Z87.891 Personal history of nicotine dependence; E11.40 Type 2 diabetes mellitus with diabetic neuropathy, unspecified; E66.09 Other obesity due to excess calories; Z68.37 Body mass index [BMI] 37.0-37.9, adult